=== PATIENT | male | born 2000 | race Caucasian/White ===

== ENCOUNTER 2024-09-24 09:08 | Emergency (ER) | payer MEDICAID, SELFPAY ==
[2024-09-24] VITALS (7 sets, daily range): BP systolic 136–151; BP diastolic 83–105; PULSE 81–96; RESP 18; TEMP 36.8; O2SAT 97–100; BMI 24.4
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
[2024-09-24 10:07] LABS: Basophils Absolute Auto 0.04 K/uL (0.00-0.30); Basophils Percent Auto 0.5 % (0.0-3.0); Eosinophils Absolute Auto 0.29 K/uL (0.00-0.50); Eosinophils Percent Auto 3.7 % (0.0-7.0); Hematocrit 28.4 % (37.0-53.0); Hemoglobin* 9.5 gm/dL (13.5-17.5); Immature Granulocytes Abs Auto 0.01 K/uL (0.00-0.30); Immature Granulocytes Pct Auto 0.1 %; Lymphocytes Percent Auto 12.1 % (20-44); Mean Corpuscular HGB Conc 34 gm/dL (32-36); Mean Corpuscular Hemoglobin 30 pg (26-34); Mean Corpuscular Volume 91 fL (80-100); Monocytes Percent Auto 10.9 % (0.0-11.0); Neutrophils Percent Auto 72.7 % (42.0-72.0); Platelet Count* 195 K/uL (140-440); RDW Coefficient of Variation % 11.8 % (11.5-15.5); Red Blood Count 3.13 m/uL (4.30-5.90); White Blood Count* 7.88 K/uL (4.50-11.00)
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
--- OUTSIDE RECORDS SUMMARY | 2024-09-24 10:08 | XMS_ITS | Referral Summary ---
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 chest earlier today. Thoracic and lumbar spine otherwise negative. Narrative 09/21/2024 1:14 PM CHILD NUTRITION MANAGER EXAM: CT THORACIC SPINE WITHOUT IV CONTRAST, CT LUMBAR SPINE WITHOUT IV CONTRAST COMPARISON: CT thoracic and lumbar spine 03/18/2018. FINDINGS: Thoracic spine: Acute fractures of the left T1-T5 posterior ribs. Small right and trace left pneumothorax and left pulmonary contusions are better demonstrated on CT chest performed earlier today. Chronic appearance of Schmorl's node involving the superior endplate of T3 is more prominent than on 03/18/2018. Chronic Schmorl's nodes involving the inferior endplate of T6 and T7 are unchanged. Thoracic spine otherwise negative. Lumbar spine: Negative and unchanged. Procedure Note Dev Hull M.D. - 09/21/2024 EXAM: CT THORACIC SPINE WITHOUT IV CONTRAST, CT LUMBAR SPINE WITHOUT IVCONTRAST COMPARISON: CT thoracic and lumbar spine 03/18/2018. FINDINGS: Thoracic spine: Acute fractures of the left T1-T5 posteriorribs. Small right and trace left pneumothorax and left pulmonarycontusions are better demonstrated on CT chest performed earlier today. Chronic appearance of Schmorl's node involving the superior endplate of T3is more prominent than on 03/18/2018. Chronic Schmorl's nodes involving theinferior endplate of T6 and T7 are unchanged. Thoracic spine otherwisenegative. Lumbar spine: Negative and unchanged. IMPRESSION: Acute left upper rib fractures, bilateral pneumothoraces left pulmonarycontusion as demonstrated on CT chest earlier today. Thoracic and lumbarspine otherwise negative. Shereen Dubon IMMariela CT PROCEDURES Final Res ult * CT Thoracic Spine without IV Contrast (09/21/2024 1:05 PM CHILD NUTRITION MANAGER) Anatomical Region Laterality Modality Thoracic Spine, Neuroradiolo gy RST LOS, Neuroradiology ARZ LOS, Neuroradiology FLA LOS N/A Computed Tomography, Compute d Tomography Impressions 09/21/2024 1:14 PM CHILD NUTRITION MANAGER Acute left upper rib fractures, bilateral pneumothoraces left pulmonary contusion as demonstrated on CT chest earlier today. Thoracic and lumbar spine otherwise negative. Narrative 09/21/2024 1:14 PM CHILD NUTRITION MANAGER EXAM: CT THORACIC SPINE WITHOUT IV CONTRAST, CT LUMBAR SPINE WITHOUT IV CONTRAST COMPARISON: CT thoracic and lumbar spine 03/18/2018. FINDINGS: Thoracic spine: Acute fractures of the left T1-T5 posterior ribs. Small right and trace left pneumothorax and left pulmonary contusions are better demonstrated on CT chest performed earlier today. Chronic appearance of Schmorl's node involving the superior endplate of T3 is more prominent than on 03/18/2018. Chronic Schmorl's nodes involving the inferior endplate of T6 and T7 are unchanged. Thoracic spine otherwise negative. Lumbar spine: Negative and unchanged. Procedure Note Dev Hull M.D. - 09/21/2024 EXAM: CT THORACIC SPINE WITHOUT IV CONTRAST, CT LUMBAR SPINE WITHOUT IVCONTRAST COMPARISON: CT thoracic and lumbar spine 03/18/2018. FINDINGS: Thoracic spine: Acute fractures of the left T1-T5 posteriorribs. Small right and trace left pneumothorax and left pulmonarycontusions are better demonstrated on CT chest performed earlier today. Chronic appearance of Schmorl's node involving the superior endplate of T3is more prominent than on 03/18/2018. Chronic Schmorl's nodes involving theinferior endplate of T6 and T7 are unchanged. Thoracic spine otherwisenegative. Lumbar spine: Negative and unchanged. IMPRESSION: Acute left upper rib fractures, bilateral pneumothoraces left pulmonarycontusion as demonstrated on CT chest earlier today. Thoracic and lumbarspine otherwise negative. Shereen Dubon IMMariela CT PROCEDURES Final Res ult * CT Neck Angiogram with IV Contrast (09/21/2024 1:05 PM CHILD NUTRITION MANAGER) Anatomical Region Laterality Modality Neck, Neuroradiology RST LOS , Neuroradiology ARZ LOS, Neuroradiology FLA LOS N/A Computed Tomography, Compute d Tomography 09/21/2024 12:5 9 PM CHILD NUTRITION MANAGER Impressions 09/21/2024 1:20 PM CHILD NUTRITION MANAGER 1. Carotid and vertebral arteries in the neck are patent and negative for acute traumatic injury. 2. 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 Narrative 09/21/2024 1:20 PM CHILD NUTRITION MANAGER EXAM: CT NECK ANGIOGRAM WITH IV CONTRAST Including 3D image post-processing with or without AI assistance. COMPARISON: Neck CT 04/15/2023, chest CT 09/21/2024 FINDINGS: Carotid and vertebral arteries in the neck are widely patent without stenosis. No acute traumatic vascular injury. Small 2 to 3 mm saccular outpouching projecting superiorly and medially from the proximal left A2 segment. Subcutaneous soft tissue swelling in the lower face and anterior neck, left slightly greater than right. Asymmetric enhancement of the left parotid and submandibular glands may reflect reactive hyperemia. Partially visualized bilateral pneumothoraces and multiple posterior rib fractures, which were better evaluated on chest CT earlier today. Procedure Note Dev Hull M.D. - 09/21/2024 EXAM: CT NECK ANGIOGRAM WITH IV CONTRAST Including 3D image post-processing with or without AI assistance. COMPARISON: Neck CT 04/15/2023, chest CT 09/21/2024 FINDINGS: Carotid and vertebral arteries in the neck are widely patentwithout stenosis. No acute traumatic vascular injury. Small 2 to 3 mm saccular outpouching projecting superiorly and mediallyfrom the proximal left A2 segment. Subcutaneous soft tissue swelling in the lower face and anterior neck,left slightly greater than right. Asymmetric enhancement of the leftparotid and submandibular glands may reflect reactive hyperemia. Partially visualized bilateral pneumothoraces and multiple posterior ribfractures, which were better evaluated on chest CT earlier today. IMPRESSION: 1. Carotid and vertebral arteries in the neck are patent and negative foracute traumatic injury. 2. 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 us Shereen Pacheco.S. IMG CT PROCEDURES Final Res ult * (ABNORMAL) Lactate, POCT (09/21/2024 12:34 PM CHILD NUTRITION MANAGER) Lactate, POCT 2.62(H) 0.50 - 2.20 mmol/L 09/21/2024 12:46 PM CHILD NUTRITION MANAGER PCLX Blood (Blood, Venous) 09/21/2024 12:34 PM CHILD NUTRITION MANAGER 09/21/2024 12:34 PM CHILD NUTRITION MANAGER us Shereen PaezB.S. LAB POCT ORDERABLES - DEVIC E Final Result [facility] SERVICES [address] [place] [address], [place] PCLX [facility] POC [address] [place] [address] * (ABNORMAL) Venous Blood Gas and Electrolytes CG8+, POCT (09/21/2024 12:33 PM CHILD NUTRITION MANAGER) [facility] Sample Site, POCT Venstick 09/21/2024 12:46 PM CHILD NUTRITION MANAGER PCLX Comment: ----ADDITIONAL INFORMATION---- Performed at the Point of Care pH, Venous, POCT, B 7.33 7.32 - 7.43 09/21/2024 12:46 PM CHILD NUTRITION MANAGER PCSM Comment: ----ADDITIONAL INFORMATION---- Performed at the Point of Care pCO2, Venous, POCT, B 41 41 - 51 mm Hg 09/21/2024 12:46 PM CHILD NUTRITION MANAGER PCSM Comment: ----ADDITIONAL INFORMATION---- Performed at the Point of Care pO2, Venous, POCT, B 63 Not Applicable mm Hg 09/21/2024 12:46 PM CHILD NUTRITION MANAGER PCSM Comment: ----ADDITIONAL INFORMATION---- Performed at the Point of Care Base Excess, Venous, POCT, B -4 Not Applicable mmol/L 09/21/2024 12:46 PM CHILD NUTRITION MANAGER PCSM Comment: ----ADDITIONAL INFORMATION---- Performed at the Point of Care HCO3, Venous, POCT, B 22 Not Applicable mmol/L 09/21/2024 12:46 PM CHILD NUTRITION MANAGER PCSM Comment: ----ADDITIONAL INFORMATION---- Performed at the Point of Care Sodium, POCT, B 139 135 - 145 mmol/L 09/21/2024 12:46 PM CHILD NUTRITION MANAGER PCLX Comment: ----ADDITIONAL INFORMATION---- Performed at the Point of Care Potassium, POCT, B 4.0 3.6 - 5.2 mmol/L 09/21/2024 12:46 PM CHILD NUTRITION MANAGER PCLX Comment: ----ADDITIONAL INFORMATION---- Performed at the Point of Care Calcium, Ionized, POCT, B 5.10 4.65 - 5.30 mg/dL 09/21/2024 12:46 PM CHILD NUTRITION MANAGER PCLX Comment: ----ADDITIONAL INFORMATION---- Performed at the Point of Care Glucose, POCT, B 172(H) 70 - 140 mg/dL 09/21/2024 12:46 PM CHILD NUTRITION MANAGER PCLX Comment: ----ADDITIONAL INFORMATION---- Performed at the Point of Care Hematocrit, POCT, B 46.0 38.3 - 48.6 % 09/21/2024 12:46 PM CHILD NUTRITION MANAGER PCLX Comment: ----ADDITIONAL INFORMATION---- Performed at the Point of Care Blood (Blood, Venous) 09/21/2024 12:33 PM CHILD NUTRITION MANAGER 09/21/2024 12:33 PM CHILD NUTRITION MANAGER us Shereen PaezB.S. LAB POCT ORDERABLES - DEVIC E Final Result Performing Organization Address [facility] Co de Phone Number POC [facility] SERVICES [address] [place] [address], [facility] PCLX [facility] POC [address] [place] [address] PCSM [facility] POC [address] [place] [address] * Ethanol Level, Serum (09/21/2024 12:32 PM CHILD NUTRITION MANAGER) Pathologist [facility] Ethanol, S <10 <10 mg/dL 09/21/2024 1:1 9 PM CHILD NUTRITION MANAGER DTL Blood (Blood, Venous) 09/21/2024 12:32 PM CHILD NUTRITION MANAGER 09/21/2024 12:58 PM CHILD NUTRITION MANAGER us Shereen PaezB.S. LAB BLOOD NON ADD-ON Final Result Performing Organization Address [facility] de Phone Number [facility] [address] [place] [address], [facility] [address] [place] [address] * (ABNORMAL) Thromboelastograph, Kaolin, Blood (09/21/2024 12:32 PM CHILD NUTRITION MANAGER) R, Kaolin, TEG 3.0(L) 4.0 - 9.0 min 09/21/2024 2:05 PM CHILD NUTRITION MANAGER STMA K, Kaolin, TEG 1.4 1.0 - 1.8 min 09/21/2024 2:05 PM CHILD NUTRITION MANAGER STMA Angle, Kaolin, TEG 68.2 64.0 - 78.1 degrees 09/21/2024 2:05 PM CHILD NUTRITION MANAGER STMA MA, Kaolin, TEG 63.8 57.1 - 72.6 mm 09/21/2024 2:05 PM CHILD NUTRITION MANAGER STMA Ly30, Kaolin, TEG 1.4 0.0 - 4.8 % 09/21/2024 2:05 PM CHILD NUTRITION MANAGER STMA Blood (Blood, Venous) 09/21/2024 12:32 PM CHILD NUTRITION MANAGER 09/21/2024 12:32 PM CHILD NUTRITION MANAGER Shereen PaezB.S. LAB BLOOD NON ADD-ON Final Result Performing Organization Address [facility]/State/ZIP Co de Phone Number [facility] [address] [place] [address], [facility] [address] [place] [address] * (ABNORMAL) Prothrombin Time (PT) (09/21/2024 12:32 PM CHILD NUTRITION MANAGER) Prothrombin Time, P 12.9(H) 9.4 - 12.5 sec 09/21/2024 12:48 PM CHILD NUTRITION MANAGER [facility] 1.2 0.9 - 1.1 09/21/2024 12:48 PM CHILD NUTRITION MANAGER [facility] Comment: ----ADDITIONAL INFORMATION---- Standard intensity warfarin therapeutic range: 2.0 to 3.0 High intensity warfarin therapeutic range: 2.5 to 3.5 Blood (Blood, Venous) 09/21/2024 12:32 PM CHILD NUTRITION MANAGER 09/21/2024 12:42 PM CHILD NUTRITION MANAGER us Shereen PaezB.S. LAB BLOOD ADD-ON Final Resu lt [facility] [address] [place] [address], [facility] [address] [place] [address] * Type and Screen (with Reflex Antibody ID) (09/21/2024 12:32 PM CHILD NUTRITION MANAGER) ABORh B Pos Not applicable 09/21/2024 1:19 PM CHILD NUTRITION MANAGER STRM Antibody Screen Negative Negative 09/21/2024 1:32 PM CHILD NUTRITION MANAGER STRM Type & Screen Expiration 09/24/2024 23:59 09/21/2024 1:19 PM CHILD NUTRITION MANAGER STRM Testing Location [place] DEFAULT 09/21/2024 12:49 PM CHILD NUTRITION MANAGER STRM Blood (Blood, Venous) 09/21/2024 12:32 PM CHILD NUTRITION MANAGER 09/21/2024 12:49 PM CHILD NUTRITION MANAGER us Shereen PaezB.S. LAB BLOOD BANK TEST ORDERAB LES Final Result Performing Organization Address [facility]/ZIP Co de Phone Number [facility] [address] [place] [address], [facility] STRM [facility] [address] [place] [address] * Lipase (09/21/2024 12:32 PM CHILD NUTRITION MANAGER) Lipase, S 30 13 - 60 U/L 09/21/2024 1: 19 PM CHILD NUTRITION MANAGER DTL Blood (Blood, Venous) 09/21/2024 12:32 PM CHILD NUTRITION MANAGER 09/21/2024 12:58 PM CHILD NUTRITION MANAGER us Shereen PaezB.S. LAB BLOOD ADD-ON Final Resu lt Performing Organization Address [facility] Co de Phone Number [facility] [address] [place] [address], [facility] DTL [facility] [address] [place] [address] * DX Shoulder Left 2+ Views (09/21/2024 9:25 AM CHILD NUTRITION MANAGER) Anatomical Region Laterality Modality Upper Extremity, Shoulder, M usculoskeletal RST LOS, Musculoskeletal ARZ LOS, Muskuloskeletal FLA LOS Left Digit al Radiography Impressions 09/21/2024 9:35 AM CHILD NUTRITION MANAGER Images are interpreted without comparison. There is a comminuted fracture of the scapular body which extends across the superior margin of the neck of the glenoid. Fractures involving the left first through sixth ribs with segmental third, fourth, fifth rib fractures. Small biapical pneumothoraces. (More completely characterized on preceding CT examination) Glenohumeral and acromioclavicular alignment is within normal limits. Left clavicle is intact. Narrative 09/21/2024 9:35 AM CHILD NUTRITION MANAGER EXAM: DX SHOULDER LEFT 2+ VIEWS Procedure Note Ezra Gan M.D. - 09/21/2024 EXAM: DX SHOULDER LEFT 2+ VIEWS IMPRESSION: Images are interpreted without comparison. There is a comminuted fractureof the scapular body which extends across the superior margin of the neckof the glenoid. Fractures involving the left first through sixth ribs withsegmental third, fourth, fifth rib fractures. Small biapical pneumothoraces. (Morecompletely characterized on preceding CT examination) Glenohumeral andacromioclavicular alignment is within normal limits. Left clavicle isintact. Bertha Ferrera M.D. IMG DIAGNOSTIC IMAGING [place] OCEDURES Final Result * CT Abdomen Pelvis with IV Contrast (09/21/2024 9:20 AM CHILD NUTRITION MANAGER) Anatomical Region Laterality Modality Abdomen, Pelvis, Abdominal R ST LOS, Abdominal ARZ LOS, Abdominal FLA LOS N/A Computed Tomography 09/21/2024 9:13 AM CHILD NUTRITION MANAGER Impressions 09/21/2024 9:40 AM CHILD NUTRITION MANAGER 1. Small right and trace left pneumothoraces. Small left hemothorax. 2. Left first through sixth rib fractures with segmental fractures of the left third, fourth and fifth ribs. Extensive left pulmonary contusion. 3. No acute traumatic injury in the abdomen or pelvis. Result discussed with BERTHA FERRERA on 09/21/2024 9:38 AM. Narrative 09/21/2024 9:40 AM CHILD NUTRITION MANAGER EXAM: CT CHEST WITH IV CONTRAST, CT ABDOMEN PELVIS WITH IV CONTRAST COMPARISON: CT chest abdomen pelvis 03/18/2018 FINDINGS: Small right and trace left pneumothoraces. Extensive groundglass attenuation throughout the left lung compatible with pulmonary contusion. Small left hemothorax. No thoracic lymphadenopathy. Normal heart size without pericardial effusion. Small amount of thymic tissue in anterior mediastinum. Focal fatty deposition along the falciform ligament. Gallbladder, spleen, pancreas and adrenal glands are normal. No hydronephrosis. Portal, splenic and superior mesenteric veins are patent. 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 No lymphadenopathy. No dilated loops of small or large bowel. Trace free fluid in the pelvis. Bone windows demonstrate comminuted left scapular fracture involving the scapular body extending into the anterior aspect of the glenoid and base of the coracoid process. Nondisplaced left posterior first, second, third, fourth, fifth, sixth rib fractures with subsegmental left lateral third, fourth, fifth rib fractures. Procedure Note Saeed Son M.D. - 09/21/2024 EXAM: CT CHEST WITH IV CONTRAST, CT ABDOMEN PELVIS WITH IV CONTRAST COMPARISON: CT chest abdomen pelvis 03/18/2018 FINDINGS: Small right and trace left pneumothoraces. Extensive groundglassattenuation throughout the left lung compatible with pulmonary contusion.Small left hemothorax. No thoracic lymphadenopathy. Normal heart size without pericardialeffusion. Small amount of thymic tissue in anterior mediastinum. Focal fatty deposition along the falciform ligament. Gallbladder, spleen,pancreas and adrenal glands are normal. No hydronephrosis. Portal, splenic and superior mesenteric veins are patent. Stable stenosisof the celiac artery origin with poststenotic dilatation aorta normal incourse and caliber. No lymphadenopathy. No dilated loops of small or large bowel. Trace free fluid in thepelvis. Bone windows demonstrate comminuted left scapular fracture involving thescapular body extending into the anterior aspect of the glenoid and baseof the coracoid process. Nondisplaced left posterior first, second, third,fourth, fifth, sixth rib fractures with subsegmental left lateral third, fourth, fifth ribfractures. IMPRESSION: 1. Small right and trace left pneumothoraces. Small left hemothorax. 2. Left first through sixth rib fractures with segmental fractures of theleft third, fourth and fifth ribs. Extensive left pulmonary contusion. 3. No acute traumatic injury in the abdomen or pelvis. Result discussed with BERTHA FERRERA on 09/21/2024 9:38 AM. us Bertha Ferrera M.D. IMG CT PROCEDURES Final R esult * CT Chest with IV Contrast (09/21/2024 9:19 AM CHILD NUTRITION MANAGER) Anatomical Region Laterality Modality Chest, Thoracic RST LOS, Tho racic ARZ LOS, Thoracic ARZ LOS, Thoracic FLA LOS N/A Computed Tomography 09/21/2024 9:13 AM CHILD NUTRITION MANAGER Impressions 09/21/2024 9:40 AM CHILD NUTRITION MANAGER 1. Small right and trace left pneumothoraces. Small left hemothorax. 2. Left first through sixth rib fractures with segmental fractures of the left third, fourth and fifth ribs. Extensive left pulmonary contusion. 3. No acute traumatic injury in the abdomen or pelvis. Result discussed with BERTHA FERRERA on 09/21/2024 9:38 AM. Narrative 09/21/2024 9:40 AM CHILD NUTRITION MANAGER EXAM: CT CHEST WITH IV CONTRAST, CT ABDOMEN PELVIS WITH IV CONTRAST COMPARISON: CT chest abdomen pelvis 03/18/2018 FINDINGS: Small right and trace left pneumothoraces. Extensive groundglass attenuation throughout the left lung compatible with pulmonary contusion. Small left hemothorax. No thoracic lymphadenopathy. Normal heart size without pericardial effusion. Small amount of thymic tissue in anterior mediastinum. Focal fatty deposition along the falciform ligament. Gallbladder, spleen, pancreas and adrenal glands are normal. No hydronephrosis. Portal, splenic and superior mesenteric veins are patent. 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 No lymphadenopathy. No dilated loops of small or large bowel. Trace free fluid in the pelvis. Bone windows demonstrate comminuted left scapular fracture involving the scapular body extending into the anterior aspect of the glenoid and base of the coracoid process. Nondisplaced left posterior first, second, third, fourth, fifth, sixth rib fractures with subsegmental left lateral third, fourth, fifth rib fractures. Procedure Note Saeed Son M.D. - 09/21/2024 EXAM: CT CHEST WITH IV CONTRAST, CT ABDOMEN PELVIS WITH IV CONTRAST COMPARISON: CT chest abdomen pelvis 03/18/2018 FINDINGS: Small right and trace left pneumothoraces. Extensive groundglassattenuation throughout the left lung compatible with pulmonary contusion.Small left hemothorax. No thoracic lymphadenopathy. Normal heart size without pericardialeffusion. Small amount of thymic tissue in anterior mediastinum. Focal fatty deposition along the falciform ligament. Gallbladder, spleen,pancreas and adrenal glands are normal. No hydronephrosis. Portal, splenic and superior mesenteric veins are patent. Stable stenosisof the celiac artery origin with poststenotic dilatation aorta normal incourse and caliber. No lymphadenopathy. No dilated loops of small or large bowel. Trace free fluid in thepelvis. Bone windows demonstrate comminuted left scapular fracture involving thescapular body extending into the anterior aspect of the glenoid and baseof the coracoid process. Nondisplaced left posterior first, second, third,fourth, fifth, sixth rib fractures with subsegmental left lateral third, fourth, fifth ribfractures. IMPRESSION: 1. Small right and trace left pneumothoraces. Small left hemothorax. 2. Left first through sixth rib fractures with segmental fractures of theleft third, fourth and fifth ribs. Extensive left pulmonary contusion. 3. No acute traumatic injury in the abdomen or pelvis. Result discussed with BERTHA FERRERA on 09/21/2024 9:38 AM. us Bertha Ferrera M.D. IMG CT PROCEDURES Final R esult * CT Head without IV Contrast (09/21/2024 9:18 AM CHILD NUTRITION MANAGER) Anatomical Region Laterality Modality Head, Neuroradiology RST [facility] , Neuroradiology [facility], Neuroradiology [facility] N/A Computed Tomography 09/21/2024 9:19 AM CHILD NUTRITION MANAGER Impressions 09/21/2024 9:26 AM CHILD NUTRITION MANAGER 1. No acute intracranial pathology. 2. Facial fractures appear chronic. Narrative 09/21/2024 9:26 AM CHILD NUTRITION MANAGER EXAM: CT HEAD WITHOUT IV CONTRAST COMPARISON: 03/18/2018 CT FINDINGS: No midline shift. Ventricles are unremarkable. The lambert-white differentiation is maintained. No acute intracranial hemorrhage. Mastoids are unremarkable. Paranasal sinus mucosal thickening. The partially visualized upper cervical spine findings are reported separately. Fractures of the left lamina papyracea and nasal bones appear chronic. No acute calvarial fracture. Procedure Note Cristino Walsh M.D. - 09/21/2024 EXAM: CT HEAD WITHOUT IV CONTRAST COMPARISON: 03/18/2018 CT FINDINGS: No midline shift. Ventricles are unremarkable. The lambert-whitedifferentiation is maintained. No acute intracranial hemorrhage. Mastoidsare unremarkable. Paranasal sinus mucosal thickening. The partiallyvisualized upper cervical spine findings are reported separately. Fractures of the left lamina papyracea and nasalbones appear chronic. No acute calvarial fracture. IMPRESSION: 1. No acute intracranial pathology. 2. Facial fractures appear chronic. us Bertha Ferrera M.D. IMG CT PROCEDURES Final R esult * CT Cervical Spine without IV Contrast (09/21/2024 9:17 AM CHILD NUTRITION MANAGER) Anatomical Region Laterality Modality Cervical Spine, Neuroradiolo gy RST LOS, Neuroradiology ARZ LOS, Neuroradiology FLA LOS N/A Computed Tomography 09/21/2024 9:16 AM CHILD NUTRITION MANAGER Impressions 09/21/2024 9:23 AM CHILD NUTRITION MANAGER Negative for acute fracture of cervical spine. Narrative 09/21/2024 9:23 AM CHILD NUTRITION MANAGER EXAM: CT CERVICAL SPINE WITHOUT IV CONTRAST COMPARISON: None FINDINGS: Cervical vertebra are negative for acute fracture or subluxation. There is posttraumatic gas tracking along the left paraspinal muscle fascia (series 2 image 180). Subcutaneous edema. Please see chest CT report regarding details of additional findings, such as left rib fractures and bilateral pneumothoraces. Procedure Note Ezra Sun M.D. - 09/21/2024 EXAM: CT CERVICAL SPINE WITHOUT IV CONTRAST COMPARISON: None FINDINGS: Cervical vertebra are negative for acute fracture orsubluxation. There is posttraumatic gas tracking along the left paraspinalmuscle fascia (series 2 image 180). Subcutaneous edema. Please see chestCT report regarding details of additional findings, such as left rib fractures and bilateral pneumothoraces. IMPRESSION: Negative for acute fracture of cervical spine. us Bertha Ferrera M.D. IMG CT PROCEDURES Final R esult * DX Ankle Left 3+ Views (09/21/2024 9:07 AM CHILD NUTRITION MANAGER) Anatomical Region Laterality Modality Lower Extremity, Ankle, Musc uloskeletal RST LOS, Musculoskeletal ARZ LOS, Muskuloskeletal FLA LOS Left Digit al Radiography Impressions 09/21/2024 9:10 AM CHILD NUTRITION MANAGER Negative left ankle radiographs. Narrative 09/21/2024 9:10 AM CHILD NUTRITION MANAGER EXAM: DX ANKLE LEFT 3+ VIEWS Procedure Note Florentin Figueroa M.D. - 09/21/2024 EXAM: DX ANKLE LEFT 3+ VIEWS IMPRESSION: Negative left ankle radiographs. Bertha Ferrera M.D. IMG DIAGNOSTIC IMAGING [place] OCEDURES Final Result from Last 3 Months Advance Directives For more information, please contact: [phone] * Full Code (Latest Code Status on File) Date Activated Date Inactivated Comments 09/22/2024 2:11 PM 09/22/2024 5:22 PM Question Answer Comments Full Code: Not Discussed Due to: Patient not available * Full Code Date Activated Date Inactivated Comments 03/18/2018 9:39 PM 03/20/2018 4:05 PM Question Answer Comments Full Code: Not Discussed Due to: Patient not available Care Teams Site Safety Coordinator Relationship Specialty Start Date End Date Tiana Ma M.D. [address] [place] [phone] PCP - General Family Medicine 09/22/24
--- OUTSIDE RECORDS SUMMARY | 2024-09-24 10:08 | XMS_ITS ---
Author Organization [facility] Address [address] [place] [address] Care Team Providers Care Rivet Spinner Name Role Phone Unavailable Unavailable Unavailable Surgery Details Not on file Complications Check Surgery Details section. Procedure Estimated Blood Loss Check Surgery Details section. Procedure Findings Check Surgery Details section. Procedure Specimens Taken Check Surgery Details section.
--- OUTSIDE RECORDS SUMMARY | 2024-09-24 10:08 | XMS_ITS | Encounter Summary ---
Author Organization [facility] Address [address] [place] [address] Care Team Providers Care Hedge Trimmer Name Role Phone Tiana Ma M.D. Primary Care Provider Reason for Visit * Reason Onset Date Comments Rx Prior Authorization 09/22/2024 oxyCODONE IR tablet 5 mg (Roxicodone) Encounter Details Date Type Department Care Team (Latest Contact Info) Description 09/22/2024 Clinical Communication Division of Trauma Critical Care and General Surgery in [place], [place] [address] [place] [phone] Theresa Pandya P.A.-C. [address] [place] [address] Rx Prior Authorization (oxyCODONE IR tablet 5 mg (Roxicodone)/) Social History Tobacco Use Types Packs/Day Years Used Date Smoking Tobacco: Some Days Cigarettes Smokeless Tobacco: Never Comments:socially Alcohol Use Standard Drinks/Week Comments No 0 (1 standard drink = 0.6 oz pur e alcohol) [facility] Utilities Answer Date Recorded In the past 12 months has e electric, gas, oil, or water company threatened to shut off services in your [...] Date Recorded Dental: Regular Dentist Unknown 04/15/20 23 Housing Stability Answer Date Recorded What is your living situation today? I have a [facility] place to live 09/21/2024 Sex and Gender Information Value Date Recorded Sex Assigned at Not on file Legal Sex Male 7:15 PM GRILL PREP COOK Gender Identity Not on file Sexual Orientation Not on file documented as of this encounter Miscellaneous Notes * Telephone Encounter - Edin Corbin - 09/22/2024 2:56 PM CST Pharmacy would like a edit to the patient's oxyCODONE IR tablet 5 mg (Roxicodone). They think the dose is high for an acute fill. They would like to have the restriction of only taking a max of six aday added to the Rx. A new Rx can be sent in or called and dictated at [phone]. Thank you L PREP COOK documented in this encounter Plan of Treatment Upcoming Encounters Date Type Department Care Team (Late st Contact Info) Description 10/06/2024 10:30 AM GRILL PREP COOK Office Visit Department of Family Medicine, [facility], in [place], [place] [address] [place] [address] Rhett Montes De Oca M.D. [address] [place] [phone] 10/07/2024 7:15 AM GRILL PREP COOK Appointment Department of Radiology, [facility] in [address] [phone] Theresa Pandya P.A.-C. [address] [place] [phone] 10/07/2024 8:00 AM GRILL PREP COOK Office Visit Division of Trauma Critical Care and General Surgery in [address] [phone] Theresa Pandya P.A.-C. [address] [place] [phone] 10/13/2024 10:00 AM GRILL PREP COOK Appointment Department of Radiology, [facility] in [address] [phone] Ce Braxton P.A.-C., M.S. [address] [place] [phone] Discharge Disposition: Home or Self Care 10/13/2024 11:00 AM GRILL PREP COOK Office Visit Department of Orthopedic Surgery in [address] [phone] Ce Braxton P.A.-C., M.S. [address] [place] [phone] documented as of this encounter Visit Diagnoses Not on filedocumented in this encounter Care Teams Hedge Trimmer Relationship Specialty Start Date End Date Tiana Ma M.D. [address] [place] [phone] PCP - General Family Medicine 09/22/24 documented as of this encounter
--- OUTSIDE RECORDS SUMMARY | 2024-09-24 10:08 | XMS_ITS | Clinical Summary ---
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 [facility] POC [address] [place] [address] * Ethanol Level, Serum (09/21/2024 12:32 PM SET UP OPERATOR TOOL) Ethanol, S <10 <10 mg/dL 09/21/2024 1:1 9 PM SET UP OPERATOR TOOL DTL Blood (Blood, Venous) 09/21/2024 12:32 PM SET UP OPERATOR TOOL 09/21/2024 12:58 PM SET UP OPERATOR TOOL Shreeen PaezB.S. LAB BLOOD NON ADD-ON Final Result Performing Organization Address [facility] Co de Phone Number [facility] [address] [place], [place] [phone] [place] [address] DTL [facility] [address] [place] [address] * (ABNORMAL) Thromboelastograph, Kaolin, Blood (09/21/2024 12:32 PM SET UP OPERATOR TOOL) R, Kaolin, TEG 3.0(L) 4.0 - 9.0 min 09/21/2024 2:05 PM SET UP OPERATOR TOOL STMA K, Kaolin, TEG 1.4 1.0 - 1.8 min 09/21/2024 2:05 PM SET UP OPERATOR TOOL STMA Angle, Kaolin, TEG 68.2 64.0 - 78.1 degrees 09/21/2024 2:05 PM SET UP OPERATOR TOOL STMA MA, Kaolin, TEG 63.8 57.1 - 72.6 mm 09/21/2024 2:05 PM SET UP OPERATOR TOOL STMA Ly30, Kaolin, TEG 1.4 0.0 - 4.8 % 09/21/2024 2:05 PM SET UP OPERATOR TOOL STMA Blood (Blood, Venous) 09/21/2024 12:32 PM SET UP OPERATOR TOOL 09/21/2024 12:32 PM SET UP OPERATOR TOOL Shereen PaezB.S. LAB BLOOD NON ADD-ON Final Result Performing Organization Address [facility]/ZIP Co de Phone Number [facility] [address] [place] [address], [facility] STMA [facility] [address] [place] [address] * (ABNORMAL) Prothrombin Time (PT) (09/21/2024 12:32 PM SET UP OPERATOR TOOL) Prothrombin Time, P 12.9(H) 9.4 - 12.5 sec 09/21/2024 12:48 PM SET UP OPERATOR TOOL [facility]2 0.9 - 1.1 09/21/2024 12:48 PM SET UP OPERATOR TOOL STMA Comment: ----ADDITIONAL INFORMATION---- Standard intensity warfarin therapeutic range: 2.0 to 3.0 High intensity warfarin therapeutic range: 2.5 to 3.5 Blood (Blood, Venous) 09/21/2024 12:32 PM SET UP OPERATOR TOOL 09/21/2024 12:42 PM SET UP OPERATOR TOOL Shereen PaezB.S. LAB BLOOD ADD-ON Final Resu lt [facility] [address] [place] [address], [facility] STMA [facility] [address] [place] [address] * Type and Screen (with Reflex Antibody ID) (09/21/2024 12:32 PM SET UP OPERATOR TOOL) Pathologist [facility] ABORh B Pos Not applicable 09/21/2024 1:19 PM SET UP OPERATOR TOOL STRM Antibody Screen Negative Negative 09/21/2024 1:32 PM SET UP OPERATOR TOOL STRM Type & Screen Expiration 09/24/2024 23:59 09/21/2024 1:19 PM SET UP OPERATOR TOOL STRM Testing Location [place] DEFAULT 09/21/2024 12:49 PM SET UP OPERATOR TOOL STRM Blood (Blood, Venous) 09/21/2024 12:32 PM SET UP OPERATOR TOOL 09/21/2024 12:49 PM SET UP OPERATOR TOOL Shereen PaezB.S. LAB BLOOD BANK TEST ORDERAB LES Final Result Performing Organization Address City/[facility]/ZIP Co de Phone Number [facility] [address] [place] [address], [facility] STRM [facility] [address] [place] [address] * Lipase (09/21/2024 12:32 PM SET UP OPERATOR TOOL) Lipase, S 30 13 - 60 U/L 09/21/2024 1: 19 PM SET UP OPERATOR TOOL DTL Blood (Blood, Venous) 09/21/2024 12:32 PM SET UP OPERATOR TOOL 09/21/2024 12:58 PM SET UP OPERATOR TOOL Shereen Dubon LAB BLOOD ADD-ON Final Resu lt [facility] [address] [place] [address], [place] [facility] [address] [place] [address] * DX Shoulder Left 2+ Views (09/21/2024 9:25 AM SET UP OPERATOR TOOL) Anatomical Region Laterality Modality Upper Extremity, Shoulder, M usculoskeletal RST LOS, Musculoskeletal ARZ LOS, Muskuloskeletal FLA LOS Left Digit al Radiography Impressions 09/21/2024 9:35 AM SET UP OPERATOR TOOL Images are interpreted without comparison. There is [...] clavicle is intact. Narrative 09/21/2024 9:35 AM SET UP OPERATOR TOOL EXAM: DX SHOULDER LEFT 2+ VIEWS Procedure [...] isintact. Bertha Ferrera M.D. IMG DIAGNOSTIC IMAGING [place] OCEDURES Final Result * CT Abdomen Pelvis with IV Contrast (09/21/2024 9:20 AM SET UP OPERATOR TOOL) Anatomical Region Laterality Modality Abdomen, Pelvis, Abdominal R ST LOS, Abdominal ARZ LOS, Abdominal FLA LOS N/A Computed Tomography 09/21/2024 9:13 AM SET UP OPERATOR TOOL Impressions 09/21/2024 9:40 AM SET UP OPERATOR TOOL 1. Small right and trace left pneumothoraces. Small left hemothorax. 2. Left first through sixth rib fractures with segmental fractures of the left third, fourth and fifth ribs. Extensive left pulmonary contusion. 3. No acute traumatic injury in the abdomen or pelvis. Result discussed with BERTHA FERRERA on 09/21/2024 9:38 AM. Narrative 09/21/2024 9:40 AM SET UP OPERATOR TOOL EXAM: CT CHEST WITH IV CONTRAST, CT [...] with BERTHA FERRERA on 09/21/2024 9:38 AM. Bertha Ferrera M.D. IMG CT PROCEDURES Final R esult * CT Chest with IV Contrast (09/21/2024 9:19 AM SET UP OPERATOR TOOL) Anatomical Region Laterality Modality Chest, Thoracic RST LOS, Tho racic ARZ LOS, Thoracic ARZ LOS, Thoracic FLA LOS N/A Computed Tomography 09/21/2024 9:13 AM SET UP OPERATOR TOOL Impressions 09/21/2024 9:40 AM SET UP OPERATOR TOOL 1. Small right and trace left pneumothoraces. Small left hemothorax. 2. Left first through sixth rib fractures with segmental fractures of the left third, fourth and fifth ribs. Extensive left pulmonary contusion. 3. No acute traumatic injury in the abdomen or pelvis. Result discussed with BERTHA FERRERA on 09/21/2024 9:38 AM. Narrative 09/21/2024 9:40 AM SET UP OPERATOR TOOL EXAM: CT CHEST WITH IV CONTRAST, CT [...] with BERTHA FERRERA on 09/21/2024 9:38 AM. Bertha Ferrera M.D. IMG CT PROCEDURES Final R esult * CT Head without IV Contrast (09/21/2024 9:18 AM SET UP OPERATOR TOOL) Anatomical Region Laterality Modality Head, Neuroradiology RST LOS , Neuroradiology AR LOS, Neuroradiology [facility] LOS N/A Computed Tomography 09/21/2024 9:19 AM SET UP OPERATOR TOOL Impressions 09/21/2024 9:26 AM SET UP OPERATOR TOOL 1. No acute intracranial pathology. 2. Facial fractures appear chronic. Narrative 09/21/2024 9:26 AM SET UP OPERATOR TOOL EXAM: CT HEAD WITHOUT IV CONTRAST COMPARISON: [...] intracranial pathology. 2. Facial fractures appear chronic. Bertha Ferrera M.D. IM CT PROCEDURES Final R esult * CT Cervical Spine without IV Contrast (09/21/2024 9:17 AM SET UP OPERATOR TOOL) Anatomical Region Laterality Modality Cervical Spine, Neuroradiolo gy RST LOS, Neuroradiology ARZ LOS, Neuroradiology FLA LOS N/A Computed Tomography 09/21/2024 9:16 AM SET UP OPERATOR TOOL Impressions 09/21/2024 9:23 AM SET UP OPERATOR TOOL Negative for acute fracture of cervical spine. Narrative 09/21/2024 9:23 AM SET UP OPERATOR TOOL EXAM: CT CERVICAL SPINE WITHOUT IV CONTRAST [...] of cervical spine. us Bertha Ferrera M.D. [facility] CT PROCEDURES Final R esult * DX Ankle Left 3+ Views (09/21/2024 9:07 AM SET UP OPERATOR TOOL) Anatomical Region Laterality Modality Lower Extremity, Ankle, Musc uloskeletal RST LOS, Musculoskeletal ARZ LOS, Muskuloskeletal FLA LOS Left Digit al Radiography Impressions 09/21/2024 9:10 AM SET UP OPERATOR TOOL Negative left ankle radiographs. Narrative 09/21/2024 9:10 AM SET UP OPERATOR TOOL EXAM: DX ANKLE LEFT 3+ VIEWS Procedure Note Florentin Figueroa M.D. - 09/21/2024 EXAM: DX ANKLE LEFT 3+ VIEWS IMPRESSION: Negative left ankle radiographs. us Bertha Ferrera M.D. [facility] [place] DIAGNOSTIC IMAGING MT OCEDURES Final Result from Last 3 Months Advance Directives For more information, please contact: [phone] * Full Code (Latest Code Status on File) Date Activated Date Inactivated Comments 09/22/2024 2:11 PM 09/22/2024 5:22 PM Question Answer Comments Full Code: Not Discussed Due to: Patient not available * Full Code Date Activated Date Inactivated Comments 03/18/2018 9:39 PM 03/20/2018 4:05 PM Question Answer Comments Full Code: Not Discussed Due to: Patient not available Care Teams Powder Operator Relationship Specialty Start Date End Date Tiana Ma M.D. [address] [place] [phone] PCP - General Family Medicine 09/22/24
--- OUTSIDE RECORDS SUMMARY | 2024-09-24 10:08 | XMS_ITS | Encounter Summary ---
Author Organization [facility] Address [address] [place] [address] Care Team Providers Care Landfill Gas Technician Name Role Phone Tiana Ma M.D. Primary Care Provider [phone] Reason for Referral * Outpatient (Routine) - Authorized Specialty Diagnoses / Procedures Referred By Contac t Referred To Contact Trauma Critical Care and General Surgery Diagnoses . Theresa Pandya P.A.-C. [address] [place] [address] Phone: tel: fax: [facility] Referral ID Status Reason Start Date Expiration Date V isits Requested Visits Authorized [id number] Authorized 09/22/2024 03/24/2026 1 1 SALES TEAM LEADER * Outpatient (Routine) - Authorized Specialty Diagnoses / Procedures Referred By Contac t Referred To Contact Diagnoses Fracture Rib Multiple Closed Initial Left Pneumothorax Trauma Initial Contusion Lung Initial Left Procedures DX Chest AP or PA and Lateral 2 Views Theresa Pandya P.A.-C. [address] [place] [address] Phone: tel: fax: [facility] Referral ID Status Reason Start Date Expiration Date V isits Requested Visits Authorized [id number] Authorized 09/22/2024 09/22/2025 1 1 SALES TEAM LEADER Reason for Visit * Reason Onset Date Comments Post Hospital Follow-up 09/22/2024 Rib fx f /u Encounter Details Date Type Department Care Team (Latest Contact Info) Description 09/22/2024 Clinical Communication Division of Trauma Critical Care and General Surgery in [place], [place] [address] [place] [phone] Theresa Padnya P.A.-C. [address] [place] [phone] Post Hospital Follow-up (Rib fx f/u) Social History Tobacco Use Types Packs/Day Years Used Date Smoking Tobacco: Some Days Cigarettes Smokeless Tobacco: Never Comments:socially Alcohol Use Standard Drinks/Week Comments No 0 (1 standard drink = 0.6 oz pur e alcohol) [facility] Utilities Answer Date Recorded In the past 12 months has [employer], gas, oil, or water [employer] threatened to shut off services in your [...] money to buy more. Never true 09/21/20 Within the past 12 months, t he [...] your living situation today? I have a [facility] place to live 09/21/2024 Sex and Gender Information Value Date Recorded Sex Assigned at Not on file Legal Sex Male 7:15 PM TELESALES TEAM LEADER Gender Identity Not on file Sexual Orientation Not on file documented as of this encounter Plan of Treatment Upcoming Encounters Date Type Department Care Team (Late st Contact Info) Description 10/06/2024 10:30 AM TELESALES TEAM LEADER Office Visit Department of Family Medicine, [facility], in [place], [place] [address] [phone] Rhett Montes De Oca M.D. [address] [phone] 10/07/2024 7:15 AM TELESALES TEAM LEADER Appointment Department of Radiology, [facility] in [address] [phone] Theresa Pandya, P.A.-CNeri [address] [place] [phone] 10/07/2024 8:00 AM TELESALES TEAM LEADER Office Visit Division of Trauma Critical Care and General Surgery in [address] [phone] Theresa Pandya, P.A.-CNeri [address] [place] [phone] 10/13/2024 10:00 AM TELESALES TEAM LEADER Appointment Department of Radiology, [facility], in [place], [place] [address] [place] [phone] Ce Braxton P.A.-C., M.S. [address] [place] [phone] Discharge Disposition: Home or Self Care 10/13/2024 11:00 AM TELESALES TEAM LEADER Office Visit Department of Orthopedic Surgery in [place], [place] [address] [place] [phone] Ce Braxton P.A.-C., M.S. [address] [place] [phone] Scheduled Orders Name Type Priority Associated Diagnoses Orde r Schedule DX Chest AP or PA and Lateral 2 Views Imaging RAD - Routine (most inpatients and all outpatients) Fracture Rib Multiple Closed Initial Left Pneumothorax Trauma Initial Contusion Lung Initial Left Expected: 10/06/2024 (Approximate), Expires: 12/23/2025 Scheduled Referrals Name Type Priority Associated Diagnoses Orde r Schedule Trauma Critical Care and General Surgery office visit (clinic) Outpatient Referral Routine Expected: 10/06/2024 (Approximate), Expires: 12/23/2025 documented as of this encounter Visit Diagnoses Diagnosis Fracture Rib Multiple Closed Initial Left- Primary Pneumothorax Trauma Initial Contusion Lung Initial Left documented in this encounter Care Teams Landfill Gas Technician Relationship Specialty Start Date End Date Tiana Ma M.D. [address] [place] [phone] PCP - General Family Medicine 09/22/24 documented as of this encounter
--- OUTSIDE RECORDS SUMMARY | 2024-09-24 10:08 | XMS_ITS | Encounter Summary ---
Author Organization [facility] Address [address] [place] [address] Care Team Providers Care Leasing Professional Name Role Phone Tiana Ma M.D. Primary Care Provider Encounter Details Date Type Department Care Team (Late st Contact Info) Description 09/22/2024 Orders Only Division of Trauma Critical Care and General Surgery in [place], [place] [address] [place] [phone] Florentin Anderson, PNeriA.-C. [address] [place] [phone] Social History Tobacco Use Types Packs/Day Years Used Date Smoking Tobacco: Some Days Cigarettes Smokeless Tobacco: Never Comments:socially Alcohol Use Standard Drinks/Week Comments No 0 (1 standard drink = 0.6 oz pur e alcohol) [facility] Utilities Answer Date Recorded In [...] your living situation today? I have a [facility] place to live 09/21/2024 Sex and Gender Information Value Date Recorded Sex Assigned at Not on file Legal Sex Male 7:15 PM AVIONICS SYSTEMS REPAIRER Gender Identity Not on file Sexual Orientation Not on file documented as of this encounter Plan of Treatment Upcoming Encounters Date Type Department Care Team (Late st Contact Info) Description 10/06/2024 10:30 AM AVIONICS SYSTEMS REPAIRER Office Visit Department of Family Medicine, [facility], in [place], [place] [address] [place] [phone] Rhett Montes De Oca M.D. [address] [place] [phone] 10/07/2024 7:15 AM AVIONICS SYSTEMS REPAIRER Appointment Department of Radiology, [facility], in [place], [place] [address] [place] [address] Theresa Pandya P.A.-C. [address] [place] [phone] 10/07/2024 8:00 AM AVIONICS SYSTEMS REPAIRER Office Visit Division of Trauma Critical Care and General Surgery in [address] [phone] Theresa Pandya P.A.-C. [address] [place] [phone] 10/13/2024 10:00 AM AVIONICS SYSTEMS REPAIRER Appointment Department of Radiology, [facility] in [address] [phone] Ce Braxton P.A.-C., M.S. [address] [place] [phone] Discharge Disposition: Home or Self Care 10/13/2024 11:00 AM AVIONICS SYSTEMS REPAIRER Office Visit Department of Orthopedic Surgery in [address] [phone] Ce Braxton P.A.-C., M.S. [address] [place] [phone] documented as of this encounter Visit Diagnoses Not on filedocumented in this encounter Care Teams Leasing Professional Relationship Specialty Start Date End Date Tiana Ma M.D. [address] [place] [phone] PCP - General Family Medicine 09/22/24 documented as of this encounter
--- OUTSIDE RECORDS SUMMARY | 2024-09-24 10:09 | XMS_ITS | Encounter Summary ---
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 1,000 mg Given 09/21/2024 10:55 PM [facility] 1,000 mg bisacodyL suppository 10 mg (Dulcolax) 10 mg, rectal, Daily PRN, constipation, Starting on Thu09/21/24 at 1701, Ordered sequence of administration: polyethylene glycol, then bisacodyl until BM achieved. enoxaparin injection 30 mg (Lovenox) 30 mg, subcutaneous, 2 times daily, First dose on Yumi 09/22/24 at 0900 Given 09/22/2024 8:06 AM [facility] 30 mg Right Outer Thigh fentaNYL injection 25 mcg (Sublimaze) 25 mcg, intravenous, Every 1 hour PRN, moderate pain or score 4-6 of 10, severe pain or score 7-10 of 10, Starting on Thu09/21/24 at 1225 Given 09/21/2024 2:04 PM [facility] 25 mcg HYDROmorphone (PF) injection 0.2 mg (Dilaudid) 0.2 mg, intravenous, Every 2 hour PRN, severe pain or score 7-10 of 10, breakthrough pain, Starting on Thu09/21/24 at 1701, For breakthrough pain unrelieved 30 minutes after PRN oral pain medication is used; or if unable to take oral pain medication. iohexoL 350 mg iodine/mL solution 1-200 mL (Omnipaque) 1-200 mL, intravenous, Once in imaging, contrast, Starting on Thu09/21/24 at 1241, For 1 dose, Imaging Protocol Orders, Dose per Radiant Medication Guidelines Given 09/21/2024 12:52 PM [facility] 100 mL ketorolac injection 15 mg (ToradoL) 15 mg, intravenous, Every 8 hours, First dose (after last modification) on Thu09/21/24 at 1500, For 4 days, Adult IV push rate: Over 15 seconds. Peds IV push rate: Over 1 minute. Doses > 15 mg IV/IM are discouraged due to lack of additional analgesic benefit. Given 09/22/2024 6:20 AM [facility] 15 mg Given 09/21/2024 10:55 PM [facility] 15 mg Given 09/21/2024 3:12 PM [facility] 15 mg lidocaine 5 % 1 patch (Lidoderm) 1 patch, transdermal, Administer over 12 Hours, Every 24 hours, First dose on Thu09/21/24 at 1800, (12 hours on-12 hours off) To intact skin Medication Applied 09/21/2024 6:16 PM [facility] 1 patch Upper Back LORazepam tablet 1 mg (Ativan) 1 mg, oral, Bedtime PRN, anxiety, Starting on Thu09/21/24 at 2210 Given 09/21/2024 10:55 PM [facility] 1 mg naloxone injection 0.2 mg (Narcan) 0.2 mg, intravenous, As needed, respiratory depression, Starting on Thu09/21/24 at 1701, For RASS Score -4 or less, respiratory rate of less than 8 breaths/min. Notify provider/service and rapid response team (if available at institution). ondansetron (PF) injection 4 mg (Zofran) 4 mg, intravenous, Every 6 hours PRN, nausea, vomiting, Starting on Thu09/21/24 at 1701, Reassess for nausea or vomiting after at least 10 minutes. If nausea or vomiting persists administer next ordered antiemetic medications (order for antiemetic medication administration ondansetron then prochlorperazine). ondansetron ODT disintegrating tablet 4 mg (Zofran-ODT) 4 mg, oral, Every 6 hours PRN, nausea, vomiting, Starting on Thu09/21/24 at 1701, Use ondansetron before droperidol. When splitting ODT at bedside, handle with gloves and a pill splitter to prevent moisture contact. oxyCODONE IR tablet 10 mg (Roxicodone) 10 mg, oral, Every 4 hours PRN, severe pain or score 7-10 of 10, for breakthrough pain, Starting on Thu09/21/24 at 1701, Pain unrelieved by other oral analgesics. Given 09/22/2024 12:14 PM [facility] 10 mg Given 09/21/2024 10:55 PM [facility] 10 mg Given 09/21/2024 6:05 PM [facility] 10 mg oxyCODONE IR tablet 5 mg (Roxicodone) 5 mg, oral, Every 4 hours PRN, moderate pain or score 4-6 of 10, for breakthrough pain, Starting on Thu09/21/24 at 1701, Pain unrelieved by other oral analgesics. Given 09/22/2024 8:07 AM [facility] 5 mg polyethylene glycol powder packet 1 packet (Miralax) 1 packet, oral, Daily PRN, constipation, Starting on Thu09/21/24 at 1701, Dissolve in 240 mLs (8 ounces) of water prior to giving. Avoid mixing with starch-based thickened liquids. prochlorperazine injection 5 mg (Compazine) 5 mg, intravenous, Every 6 hours PRN, nausea, vomiting, Starting on Thu09/21/24 at 1701, RASS must be -2 or higher to administer. Reassess for nausea/vomiting after at least 10 minutes. If nausea or vomiting persists administer next ordered antiemetic medications (order for antiemetic medication administration ondansetron then prochlorperazine) sennosides-docusate sodium 8.6-50 mg per tablet 1 tablet (Senokot-S) 1 tablet, oral, 2 times daily, First dose on Thu09/21/24 at 2100, Do not give if patient has diarrhea sodium chloride (PF) 0.9 % injection 1-100 mL 1-100 mL, intravenous, Once, On Thu09/21/24 at 1242, For 1 dose, Imaging Protocol Orders, Dose per Radiant Medication Guidelines Given 09/21/2024 12:52 PM [facility] 35 m L sodium chloride 0.9 % injection 10 mL 10 mL, intravenous, As needed, line care, Starting on Thu09/21/24 at 1218, Peripheral Intravenous Catheter and Rapid Infusion Catheter, prior to blood sampling, post blood transfusion or post blood sampling sodium chloride 0.9 % injection 3 mL 3 mL, intravenous, As needed, line care, Starting on Thu09/21/24 at 1218, Prior to and following infusion and between multiple consecutive infusions: sodium chloride 0.9 % injection sodium chloride 0.9 % injection 3 mL 3 mL, intravenous, Every 12 hours scheduled, First dose on Thu09/21/24 at 2100, Peripheral Intravenous Catheter and Rapid Infusion Catheter, when no infusion to maintain patency Given 09/21/2024 8:16 PM [facility] 3 mL documented in this encounter Active and Recently Administered Medications Times are shown in [facility]. Scheduled Medication Order 09/20/2024 09/21/2024 09/22/2024 acetaminophen tablet 1,000 mg (TylenoL) 1,000 mg, oral, Every 6 hours, First dose on Thu09/21/24 at 1800 1805 (Given - Provider: Samantha Serna R.N.)2255 (Given - Provider: Lisa Aparicio R.N.) 0620 (Given - Provider: Lisa Aparicio R.N.)1126 (Given - Provider: Araceli Kirkpatrick R.N.) enoxaparin injection 30 mg (Lovenox) 30 mg, subcutaneous, 2 times daily, First dose on Yumi 09/22/24 at 0900 0806 (Given - Provid er: Araceli Kirkpatrick R.N.) ketorolac injection 15 mg (ToradoL) 15 mg, intravenous, Every 8 hours, First dose (after last modification) on Thu09/21/24 at 1500, For 4 days, Adult IV push rate: Over 15 seconds. Peds IV push rate: Over 1 minute. Doses > 15 mg IV/IM are discouraged due to lack of additional analgesic benefit. 1512 (Given - Provider: Malcolm Vasquez R.N.)2255 (Given - Provider: Lisa Aparicio R.N.) 0620 (Given - Provider: Lisa Aparicio R.N.)1500 (Due) ketorolac injection 15 mg (ToradoL) 15 mg, intravenous, Once, On Thu09/21/24 at 1402, For 1 dose, Adult IV push rate: Over 15 seconds. Peds IV push rate: Over 1 minute. Doses > 15 mg IV/IM are discouraged due to lack of additional analgesic benefit. 1417 (Not Given - Provider: Gaby Strauss R.N. - Reason: Patient/family refused) lidocaine 5 % 1 patch (Lidoderm) 1 patch, transdermal, Administer over 12 Hours, Every 24 hours, First dose on Thu09/21/24 at 1800, (12 hours on-12 hours off) To intact skin 181 (Medication Applied - Provider: Samantha Serna R.N.) 0625 (Medication Removed - Provider: Lisa Aparicio R.N.) sennosides-docusate sodium 8.6-50 mg per tablet 1 tablet (Senokot-S) 1 tablet, oral, 2 times daily, First dose on Thu09/21/24 at 2100, Do not give if patient has diarrhea 2015 (Not Given - Provider: Lisa Aparicio, R.N. - Reason: Patient/family refused) 0807 (Not Given - Provider: Araceli Kirkpatrick RJarad - Reason: Patient/family refused) sodium chloride (PF) 0.9 % injection 1-100 mL (COMPLETED) 1-100 mL, intravenous, Once, On Thu09/21/24 at 1242, For 1 dose, Imaging Protocol Orders, Dose per Radiant Medication Guidelines 1252 (Given - Provider: Elias Thorne RNeriNNeri) sodium chloride 0.9 % injection 3 mL 3 mL, intravenous, Every 12 hours scheduled, First dose on Thu09/21/24 at 2100, Peripheral Intravenous Catheter and Rapid Infusion Catheter, when no infusion to maintain patency 2015 (Given - Provider: Lisa Aparicio RJarad) 1232 (Not Given - Provider: Gonzales Albert RNeriNNeri - Reason: Order parameters not met) PRN Medication Order 09/20/2024 09/21/2024 09/22/2024 bisacodyL suppository 10 mg (Dulcolax) 10 mg, rectal, Daily PRN, constipation, Starting on Thu09/21/24 at 1701, Ordered sequence of administration: polyethylene glycol, then bisacodyl until BM achieved. fentaNYL injection 25 mcg (Sublimaze) (CANCELED) 25 mcg, intravenous, Every 1 hour PRN, moderate pain or score 4-6 of 10, severe pain or score 7-10 of 10, Starting on Thu09/21/24 at 1225 1404 (Given - Provider: Gaby Strauss RNeriNNeri) HYDROmorphone (PF) injection 0.2 mg (Dilaudid) 0.2 mg, intravenous, Every 2 hour PRN, severe pain or score 7-10 of 10, breakthrough pain, Starting on Thu09/21/24 at 1701, For breakthrough pain unrelieved 30 minutes after PRN oral pain medication is used; or if unable to take oral pain medication. iohexoL 350 mg iodine/mL solution 1-200 mL (Omnipaque) (COMPLETED) 1-200 mL, intravenous, Once in imaging, contrast, Starting on Thu09/21/24 at 1241, For 1 dose, Imaging Protocol Orders, Dose per Radiant Medication Guidelines 1252 (Given - Provider: Elias Thorne R.N.) LORazepam tablet 1 mg (Ativan) 1 mg, oral, Bedtime PRN, anxiety, Starting on Thu09/21/24 at 2210 2255 (Given - Provider: Lisa Aparicio R.N.) naloxone injection 0.2 mg (Narcan) 0.2 mg, intravenous, As needed, respiratory depression, Starting on Thu09/21/24 at 1701, For RASS Score -4 or less, respiratory rate of less than 8 breaths/min. Notify provider/service and rapid response team (if available at institution). ondansetron (PF) injection 4 mg (Zofran) 4 mg, intravenous, Every 6 hours PRN, nausea, vomiting, Starting on Thu09/21/24 at 1701, Reassess for nausea or vomiting after at least 10 minutes. If nausea or vomiting persists administer next ordered antiemetic medications (order for antiemetic medication administration ondansetron then prochlorperazine). ondansetron ODT disintegrating tablet 4 mg (Zofran-ODT) 4 mg, oral, Every 6 hours PRN, nausea, vomiting, Starting on Thu09/21/24 at 1701, Use ondansetron before droperidol. When splitting ODT at bedside, handle with gloves and a pill splitter to prevent moisture contact. oxyCODONE IR tablet 10 mg (Roxicodone)(Linked Group 1) 10 mg, oral, Every 4 hours PRN, severe pain or score 7-10 of 10, for breakthrough pain, Starting on Thu09/21/24 at 1701, Pain unrelieved by other oral analgesics. 1805 (Given - Provider: Samantha Serna R.N.)2255 (Given - Provider: Lisa Aparicio R.N.) 0807 (See Alternative - Provider: Araceli Kirkpatrick RNeriNNeri)1214 (Given - Provider: Elvin Molina R.N.) oxyCODONE IR tablet 5 mg (Roxicodone)(Linked Group 1) 5 mg, oral, Every 4 hours PRN, moderate pain or score 4-6 of 10, for breakthrough pain, Starting on Thu09/21/24 at 1701, Pain unrelieved by other oral analgesics. 1805 (See Alternative - Provider: Samantha Serna RJarad)2255 (See Alternative - Provider: Lisa Aparicio R.N.) 0807 (Given - Provider: Mansi IvoryNNeri)1214 (See Alternative - Provider: Elvin Molina R.N.) polyethylene glycol powder packet 1 packet (Miralax) 1 packet, oral, Daily PRN, constipation, Starting on Thu09/21/24 at 1701, Dissolve in 240 mLs (8 ounces) of water prior to giving. Avoid mixing with starch-based thickened liquids. prochlorperazine injection 5 mg (Compazine) 5 mg, intravenous, Every 6 hours PRN, nausea, vomiting, Starting on Thu09/21/24 at 1701, RASS must be -2 or higher to administer. Reassess for nausea/vomiting after at least 10 minutes. If nausea or vomiting persists administer next ordered antiemetic medications (order for antiemetic medication administration ondansetron then prochlorperazine) sodium chloride 0.9 % injection 10 mL 10 mL, intravenous, As needed, line care, Starting on Thu09/21/24 at 1218, Peripheral Intravenous Catheter and Rapid Infusion Catheter, prior to blood sampling, post blood transfusion or post blood sampling sodium chloride 0.9 % injection 3 mL 3 mL, intravenous, As needed, line care, Starting on Thu09/21/24 at 1218, Prior to and following infusion and between multiple consecutive infusions: sodium chloride 0.9 % injection Linked Groups Order Group 1: oxyCODONE IR tablet 5 mg (Roxicodone)Jump to med 5 mg, oral, Every 4 hours PRN, moderate pain or score 4-6 of 10, for breakthrough pain, Starting on Thu09/21/24 at 1701, Pain unrelieved by other oral analgesics. Or oxyCODONE IR tablet 10 mg (Roxicodone)Jump to med 10 mg, oral, Every 4 hours PRN, severe pain or score 7-10 of 10, for breakthrough pain, Starting on Thu09/21/24 at 1701, Pain unrelieved by other oral analgesics. documented in this encounter Care Teams Type Photography Supervisor Relationship Specialty Start Date End Date Tiana Ma M.D. [address] [place] [phone] PCP - General Family Medicine 09/22/24 documented as of this encounter
--- OUTSIDE RECORDS SUMMARY | 2024-09-24 10:09 | XMS_ITS | Encounter Summary ---
Author Organization [facility] Address [address] [place] [address] Care Team Providers Care Wire Transfer Clerk Name Role Phone Tiana Ma M.D. Primary Care Provider [phone] Encounter Details Date Type Department Care Team (Latest Contact Info) Description 09/21/2024 Intake [facility] Social History Tobacco Use Types Packs/Day Years Used Date Smoking Tobacco: Some Days Cigarettes Smokeless Tobacco: Never Comments:socially Alcohol Use Standard Drinks/Week Comments No 0 (1 standard drink = 0.6 oz pur e alcohol) [facility] Utilities Answer Date Recorded In the past 12 months has e [employer], gas, oil, or water [employer] threatened to shut off services in your [...] your living situation today? I have a [facility] place to live 09/21/2024 Sex and Gender Information Value Date Recorded Sex Assigned at Not on file Legal Sex Male 7:15 PM SUPERVISOR CRACK OFF Gender Identity Not on file Sexual Orientation Not on file documented as of this encounter Plan of Treatment Upcoming Encounters Date Type Department Care Team (Late st Contact Info) Description 10/06/2024 10:30 AM SUPERVISOR CRACK OFF Office Visit Department of Family Medicine, [facility] [place], in [place], [place] [address] [phone] Rhett Montes De Oca M.D. [address] [place] [phone] 10/07/2024 7:15 AM SUPERVISOR CRACK OFF Appointment Department of Radiology, [facility], in [place], [place] [address] [place] [phone] Theresa Pandya P.A.-C. [address] [place] [phone] 10/07/2024 8:00 AM SUPERVISOR CRACK OFF Office Visit Division of Trauma Critical Care and General Surgery in [address] [phone] Theresa Pandya P.A.-C. [address] [place] [phone] 10/13/2024 10:00 AM SUPERVISOR CRACK OFF Appointment Department of Radiology, [facility] in [address] [phone] Ce Braxton P.A.-C., M.S. [address] [place] [phone] Discharge Disposition: Home or Self Care 10/13/2024 11:00 AM SUPERVISOR CRACK OFF Office Visit Department of Orthopedic Surgery in [address] [phone] Ce Braxton P.A.-C., M.S. [address] [place] [phone] documented as of this encounter Visit Diagnoses Not on filedocumented in this encounter Care Teams Wire Transfer Clerk Relationship Specialty Start Date End Date Tiana Ma M.D. [address] [place] [phone] PCP - General Family Medicine 09/22/24 documented as of this encounter
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
[2024-09-24 10:11] LABS: Slide Review Reflex No
[2024-09-24 10:20] LABS: Albumin* 4.3 g/dL (3.3-5.0)
[2024-09-24 10:21] LABS: Chloride* 99 mmol/L (96-114); Sodium* 135 mmol/L (135-149)
[2024-09-24 10:22] LABS: INR 1.03 (0.91-1.10); Prothrombin Time 14.1 Seconds
[2024-09-24 10:23] LABS: Alkaline Phosphatase* 40 U/L (40-150); Anion Gap 7 mEq/L (7-15); Aspartate Amino Transferase* 68 U/L (12-35); Bilirubin Total* 0.5 mg/dL (0.1-1.5); Blood Urea Nitrogen* 8 mg/dL (5-24); Carbon Dioxide* 29 mmol/L (20-32); Creatinine* 0.6 mg/dL (0.5-1.5); Est. Creatinine Clearance* 200.45; Estimated Glomerular Filt Rate 137 ml/min; Total Protein* 6.8 g/dL (6.0-8.3)
[2024-09-24 10:24] LABS: Alanine Aminotransferase* 52 U/L (4-50); Calcium* 8.9 mg/dL (8.4-10.6); Glucose* 98 mg/dL (60-115)
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
== END 2024-09-24 11:55 | disposition home or self-care (01) ==
PROVIDERS: Emergency Provider Internal Medicine
DX: J94.2 Hemothorax (principal)
CPT/HCPCS: 36415; 71250; 80053; 85025; 85610; 99284

== ENCOUNTER 2024-09-24 11:50 | Outpatient (CLI) | payer SELFPAY ==
--- OUTSIDE RECORDS SUMMARY | 2024-09-30 23:52 | XMS_ITS | Referral Summary ---
Author Organization [facility] Address [address] [place] [address] Phone Care Team Providers Care Supervisor Endless Track Vehicle Name Role Phone Unavailable Primary Care Provider Unavailabl e Source Comments [employer] is fully rolled out on [employer]. Last update 04/06/09.[facility] Encounters Date Type Department Care Team Description 09/24/2024 12:47 PM SEO MANAGER - 09/28/2024 5:41 PM SEO MANAGER Hospital Encounter [facility] Surgery/Trauma/Neur o [address] [place] [address] Alok Suazo MD Payne, Rachel E, MD Smith, Mark D, MD Trauma Discharge Disposition: Discharged to home or self care 09/26/2024 Orders Only Unspecified Department [place] Unknown, Provider 09/26/2024 Orders Only [facility] Film Room [facility] Radiology Department [facility]ON[facility] [address] [place] [address] Provider, Outside Referral of patient (Primary Dx) 09/26/2024 Orders Only Unspecified Department [place] Unknown, Provider 09/25/2024 Orders Only Unspecified Department [place] Unknown, Provider 09/24/2024 Travel from Last 3 Months Allergies No known active allergies Medications * Be aware that medications may not be up to date as of this document. Always verify current medications with patient. acetaminophen (TYLENOL) 325 mg oral tablet Take 2 tablets (650 mg) by mouth every 4 hours. 100 each 09/28/2024 4:04 PM SEO MANAGER 09/28/2024 Active oxyCODONE (ROXICODONE) 5 mg oral tablet Take 1-2 tablets (5-10 mg) by mouth every 4 hours as needed for Pain. 24 tablet 09/28/2024 4:04 PM SEO MANAGER 09/28/2024 Active polyethylene glycol 3350 (MIRALAX/GLUCOL AX) 17 gm/scoop oral powder Mix 1 capful (17 gm) with full glass of water and drink once every day as directed. 238 g 09/28/2024 4:04 PM SEO MANAGER 09/29/2024 Active sennosides-docu sate sodium (STOOL SOFTENER/LAXATI VE) 8.6-50 mg oral tablet Take 1 tablet by mouth twice daily. 30 each 09/28/2024 4:04 PM SEO MANAGER 09/28/2024 Active cyclobenzaprine (FLEXERIL) 10 mg oral Take 1 tablet (10 mg) by mouth 3 times daily. 24 tablet 09/28/2024 4:04 PM SEO MANAGER 09/28/2024 Active Active Problems Problem Noted Date Diagnosed Date Trauma 09/24/2024 Traumatic pneumothorax, initial encounter 2023 Social History Tobacco Use Types Packs/Day Years Used Date Smoking Tobacco: Never Assessed Humiliation, Afraid, Rape, and Kick questionnair e Answer Date Recorded Within the last year, have y ou been afraid of your partner or ex-partner? No 09/25/2024 Within the last year, have y ou been humiliated or emotionally abused in other ways by your partner or ex-partner? No 09/25/2024 Physically Abused Not on file 09/25/2024 Within the last year, have y ou been raped or forced to have any kind of sexual activity by your partner or ex-partner? No 09/25/2024 Overall Financial Resource Strain (CARDIA) Answe r Date Recorded How hard is it for you to pa y for the very basics like food, housing, medical care, and heating? Not hard at all 09/25/2024 Hunger Vital Sign Answer Date Recorded Within the past 12 months, y ou worried that your food would run out before you got the money to buy more. Never true 09/25/20 24 Within the past 12 months, t he food you bought just didn't last and you didn't have money to get more. Never true 09/25/2024 PRAPARE - Transportation Answer Date Re corded In the past 12 months, has l ack of transportation kept you from medical appointments or from getting medications? No 09/03 In the past 12 months, has l ack of transportation kept you from meetings, work, or from getting things needed for daily living? No 09/25/2024 Housing Stability Answer Date Recorded What is your housing situation today? 3 - I have housing 09/25/2024 Sex and Gender Information Value Date Recorded Sex Assigned at Not on file Legal Sex Male 11:38 AM SEO MANAGER Gender Identity Not on file Sexual Orientation Not on file Last Filed Vital Signs Vital Sign Reading Time Taken Comments Blood Pressure 150/84 09/28/2024 3:39 PM SEO MANAGER Pulse 91 09/28/2024 3:39 PM SEO MANAGER Temperature 36.1 C (97 F) 09/28/2024 3:39 PM SEO MANAGER Respiratory Rate 16 09/28/2024 3:39 PM SEO MANAGER Oxygen Saturation 99% 09/28/2024 3:39 PM SEO MANAGER Inhaled Oxygen Concentration - - Weight 79 kg (174 lb 2.6 oz) 09/24/2024 12:58 PM SEO MANAGER Height - - Body Mass Index - - Plan of Treatment Upcoming Encounters Date Type Department Care Team (Late st Contact Info) Description 10/10/2024 9:30 AM SEO MANAGER [facility] [address] [place] [id number] Shaila, Gen Surg Trauma [address] [place] [id number] Scheduled Discharge Disposition: Discharged to home or self care 11/03/2024 1:00 PM SEO MANAGER Office Visit [facility] [address] [place] [id number] Talha Anderson MD [address] [address] Scheduled Discharge Disposition: Discharged to home or self care Procedures Procedure Name Priority Date/Time Associated Diagnosis Comments XR CHEST 1 VIEW AP OR PA* Timed 09/28/2024 4:00 PM SEO MANAGER PC LAB CBC/PLT Routine 09/28/2024 7:10 AM SEO MANAGER PANEL BASIC METABOLIC (BMP) Routine 09/28/2024 7:09 AM SEO MANAGER XR CHEST 1 VIEW AP OR PA* Timed 09/28/2024 6:11 AM SEO MANAGER PANEL BASIC METABOLIC (BMP) Routine 09/27/2024 9:33 AM SEO MANAGER TC LAB BLOOD DRAW BY VENIPUNCTURE Routine 09/27/2024 9:33 AM SEO MANAGER XR CHEST 1 VIEW AP OR PA* Routine 09/27/2024 6:11 AM SEO MANAGER XR CHEST 1 VIEW AP OR PA* Timed 09/26/2024 11:42 AM SEO MANAGER TELEMETRY STRIPS 09/26/2024 7:25 AM SEO MANAGER XR CHEST 1 VIEW AP OR PA* Timed 09/26/2024 6:28 AM SEO MANAGER PHOSPHORUS Routine 09/26/2024 5:51 AM SEO MANAGER MAGNESIUM Routine 09/26/2024 5:51 AM SEO MANAGER PANEL BASIC METABOLIC (BMP) Routine 09/26/2024 5:51 AM SEO MANAGER TC LAB BLOOD DRAW BY VENIPUNCTURE Routine 09/26/2024 5:51 AM SEO MANAGER TELEMETRY STRIPS 09/26/2024 4:19 AM SEO MANAGER TELEMETRY STRIPS 09/25/2024 8:33 PM SEO MANAGER HEMOGLOBIN Timed 09/25/2024 6:04 PM SEO MANAGER LUNG AIRWAY CLEARANCE EXPANSION PROTOCOL Routine 09/25/2024 4:22 PM SEO MANAGER XR CHEST 1 VIEW AP OR PA* Routine 09/25/2024 12:[address] OUTSIDE READ SPINE CERVICAL/NECK Routine 09/25/2024 9:[address] OUTSIDE READ HEAD/FACIAL BONES Routine 09/25/2024 9:[address] OUTSIDE READ SPINE THORACIC/LUMBAR Routine 09/25/2024 9:[address] OUTSIDE READ SPINE CERVICAL/NECK Routine 09/25/2024 9:[address] OUTSIDE READ HEAD/FACIAL BONES Routine 09/25/2024 9:24 AM SEO MANAGER PC ELECTROLYTES PANEL STAT 09/25/2024 7:35 AM SEO MANAGER PC LAB CBC W/DIFF & PLT STAT 09/25/2024 7:35 AM SEO MANAGER TC LAB ER STAT TOTAL HGB STAT 09/24/2024 11:22 PM SEO MANAGER TC LAB ER STAT TOTAL HGB STAT 09/24/2024 7:55 PM SEO MANAGER XR SHOULDER LT 2/3V AP/GRASH/Y* Routine 09/24/2024 5:31 PM SEO MANAGER SEDATION Routine 09/24/2024 4:40 PM SEO MANAGER XR CHEST 1 VIEW AP OR PA* STAT 09/24/2024 4:34 PM SEO MANAGER PF INSERTION OF CHEST TUBE Routine 09/24/2024 4:32 PM SEO MANAGER ED EKG (12-LEAD) Routine 09/24/2024 1:[address] CHEST/ABD/PELVIS W/IV CONT STAT 09/24/2024 1:35 PM SEO MANAGER XR CHEST 1 VIEW AP OR PA* STAT 09/24/2024 1:01 PM SEO MANAGER PRECAUTIONARY TUBE STAT 09/24/2024 12 :56 PM SEO MANAGER EXTRA TUBE - SST Routine 09/24/2024 12:5 5 PM SEO MANAGER PC TROPONIN QUANTITATIVE STAT 09/24/2024 12:55 PM SEO MANAGER ETHANOL (ETOH) LEVEL, BLOOD STAT 09/24/2024 12:55 PM SEO MANAGER PC LAB PTT STAT 09/24/2024 12:55 PM SEO MANAGER PC LAB ED INR STAT 09/24/2024 12:55 PM SEO MANAGER PC LACTATE (LACTIC ACID) STAT 09/24/2024 12:55 PM SEO MANAGER FIBRINOGEN STAT 09/24/2024 12:55 PM SEO MANAGER PANEL HEPATIC FUNCTION STAT 12:55 PM SEO MANAGER TC LAB ER STAT TOTAL HGB STAT 09/24/2024 12:55 PM SEO MANAGER PC IONIZED,CALCIUM STAT 09/24/2024 12 :55 PM SEO MANAGER PC LAB CBC W/DIFF & PLT STAT 09/24/2024 12:55 PM SEO MANAGER PC GASES,BLOOD,ANY COMB OF PH,PCD2,PO2,CO2,HCO2 STAT 09/24/2024 12:55 PM SEO MANAGER ED US CRITICAL CARE STAT 09/24/2024 1 2:[address] CHEST OUTSIDE FILMS Routine 9:46 AM SEO MANAGER Referral of patient CT CHEST/ABDOMEN/PELVIS OUTSIDE FILMS Routine 09/21/2024 9:01 AM SEO MANAGER Referral of patient from Last 3 Months Results * XR CHEST 1 VIEW AP OR PA* (09/28/2024 4:00 PM SEO MANAGER) Only the most recent of8 resultswithin the time period is included. Anatomical Region Laterality Modality Chest Computed Radiogr aphy 09/28/2024 4:02 PM SEO MANAGER Impressions 09/28/2024 4:02 PM SEO MANAGER Impression: Small left apical pneumothorax with chest tube removed. Reading Radiologist: Freddy Flores Narrative 09/28/2024 4:02 PM SEO MANAGER Technique: XR CHEST 1 VIEW AP OR PA* Indication: chest tube pulled, repeat xray Comparison: 09/28/2024 at 6:14 AM Findings: Multiple left rib fractures and lateral lung opacity, unchanged. Left chest tube out. Small apical pneumothorax, similar to the morning's exam. Right lung clear. Procedure Note Freddy Flores MD - 09/28/2024 Technique: XR CHEST 1 VIEW AP OR PA* Indication: chest tube pulled, repeat xray Comparison: 09/28/2024 at 6:14 AM Findings: Multiple left rib fractures and lateral lung opacity, unchanged.Left chest tube out. Small apical pneumothorax, similar to the morning'sexam. Right lung clear. IMPRESSION Impression: Small left apical pneumothorax with chest tube removed. Reading Radiologist: Freddy Flores Gabby Kaur MD RAD XRAY Final Result * (ABNORMAL) CBC WITH PLATELET (09/28/2024 7:10 AM SEO MANAGER) Only the most recent of3 resultswithin the time period is included. WBC 9.05 4.00 - 10.00 k/cmm [facility] LAB RBC 2.99(L) 4.60 - 6.00 m/cmm [facility] Hgb 9.0(L) 13.1 - 17.5 g/dL [facility] Hematocrit 27.5(L) 40.0 - 51.0 % [facility] MCV 92.0 80.0 - 100.0 fL [facility] MCH 30.1 25.0 - 32.0 pg [facility] MCHC 32.7 31.0 - 36.0 g/dL [facility] RDW 12.3 11.5 - 14.5 % [facility] LAB Plt 337 150 - 400 k/cmm [facility] MPV 9.0 6.5 - 12.5 fL [facility] Blood 09/28/2024 7:10 AM SEO MANAGER 09/28/2024 7:19 AM SEO MANAGER us Krista Avila APRN, HOT BLASTER LABORATORY Fin al Result [facility] [address] [address] * (ABNORMAL) PANEL BASIC METABOLIC (BMP) (09/28/2024 7:09 AM SEO MANAGER) Only the most recent of3 resultswithin the time period is included. CO2 25 22 - 30 mmol/L [facility] Glucose 99 70 - 100 mg/dL [facility] BUN 9 6 - 20 mg/dL [facility] Creatinine 0.68(L) 0.70 - 1.25 mg/dL [facility] Calcium 9.1 8.6 - 10.0 mg/dL [facility] Sodium 136 135 - 148 mmol/L [facility] Potassium 4.2 3.5 - 5.3 mmol/L [facility] Chloride 101 92 - 108 mmol/L [facility] eGFR (2020 CKD-EPI) >120 >=60 ml/min/1.7 3m2 [facility] Comment: The estimated glomerular filtration rate (eGFR) was calculated using the CKD-EPI 2020 creatinine equation, which does not include race as a factor. This equation is validated in individuals 18 years of age and older, and eGFR is normalized to a body surface area of 1.73m^2. AnGap 10 8 - 16 mmol/L [facility] Blood 09/28/2024 7:09 AM SEO MANAGER 09/28/2024 7:19 AM SEO MANAGER us Krista Avila APRN, HOT BLASTER LABORATORY Jose guadalupe Result - Final [address] [address] * TELEMETRY STRIPS (09/26/2024 7:25 AM SEO MANAGER) Only the most recent of3 resultswithin the time period is included. Narrative 09/26/2024 7:25 AM SEO MANAGER Ordered by an unspecified provider. us Provider Unknown RAD ECHO Final Result * PHOSPHORUS (09/26/2024 5:51 AM SEO MANAGER) Phosphorus 3.7 2.5 - 4.5 mg/dL [facility] LAB Blood 09/26/2024 5:51 AM SEO MANAGER 09/26/2024 6:33 AM SEO MANAGER us Gabby Kaur MD LABORATORY Final Result Performing Organization Address [facility] Co de Phone Number [address] [address] * MAGNESIUM (09/26/2024 5:51 AM SEO MANAGER) Magnesium 2.4 1.6 - 2.6 mg/dL [facility] LAB Blood 09/26/2024 5:51 AM SEO MANAGER 09/26/2024 6:33 AM SEO MANAGER us Gabby Kaur MD LABORATORY Final Result Performing Organization Address [facility] Co de Phone Number [address] [address] * (ABNORMAL) HEMOGLOBIN (09/25/2024 6:04 PM SEO MANAGER) Hgb 9.5(L) 13.1 - 17.5 g/dL [facility] LAB Blood 09/25/2024 6:04 PM SEO MANAGER 09/25/2024 6:11 PM SEO MANAGER us Krista Avila [employer]LE[employer]ACH, HOT BLASTER LABORATORY Fin al Result Performing Organization Address [facility] Co de Phone Number [address] [address] * CT OUTSIDE READ SPINE CERVICAL/NECK (09/25/2024 9:37 AM SEO MANAGER) Only the most recent of2 resultswithin the time period is included. Anatomical Region Laterality Modality Cervical Spine Computed Tomogra phy 09/25/2024 2:16 PM SEO MANAGER Impressions 09/25/2024 2:23 PM SEO MANAGER Impression: 1.Neck CT angiogram demonstrates no traumatic injury or significant stenosis of the major cervical arteries. 2.There is a 2 mm saccular outpouching arising from proximal A2 segment of the left anterior cerebral artery, likely representing a small aneurysm. Reading Radiologist: Chelsie Juarez Narrative 09/25/2024 2:23 PM SEO MANAGER Indication: Patient transferred from [facility] due to Trauma. No initial report accompanied the patient and/or Dr. KRISTA AVILA requested an interpretation by me. Technique: CT scan of the neck angiogram done on 09/21/2024 with IV contrast. 3 mm axial, sagittal and coronal reconstructions reviewed in soft tissue and bone windows, per the local institution's scanning protocols, which may differ from the [facility] trauma protocols. Findings: CT Angiogram Neck: Aortic Arch & Great Vessels: The aortic arch and great vessel origins are unremarkable. NASCET cervical carotid artery measurements: Right distal internal carotid artery = 5 mm with less than 10% diameter stenosis at the bulb. Left distal internal carotid artery = 5 mm with less than 10% diameter stenosis at the bulb. Right vertebral artery: Patent throughout its course. Left vertebral artery: Patent throughout its course. Visualized soft tissues of the neck are grossly normal. Right greater than left pneumothorax. Left predominant pulmonary groundglass opacities, likely representing pulmonary contusion. Partial intracranial CTA demonstrates a 2 mm saccular outpouching arising from proximal A2 segment of the left anterior cerebral artery, likely representing a small aneurysm. There is no significant stenosis of the major intracranial arteries. The anterior communicating artery is patent. Regarding the posterior communicating arteries, both are patent. Procedure Note Chelsie Juarez MD - 09/25/2024 Indication: Patient transferred from [facility] due to Trauma.No initial report accompanied the patient and/or Dr. KRISTA Levyequested an interpretation by me. Technique: CT scan of the neck angiogram done on 09/21/2024 with IVcontrast. 3 mm axial, sagittal and coronal reconstructions reviewed insoft tissue and bone windows, per the local institution's scanningprotocols, which may differ from the [facility] trauma protocols. Findings: CT Angiogram Neck: Aortic Arch & Great Vessels: The aortic arch and great vessel origins areunremarkable. NASCET cervical carotid artery measurements: Right distal internal carotid artery = 5 mm with less than 10% diameterstenosis at the bulb. Left distal internal carotid artery = 5 mm with less than 10% diameterstenosis at the bulb. Right vertebral artery: Patent throughout its course. Left vertebral artery: Patent throughout its course. Visualized soft tissues of the neck are grossly normal. Right greater than left pneumothorax. Left predominant pulmonarygroundglass opacities, likely representing pulmonary contusion. Partial intracranial CTA demonstrates a 2 mm saccular outpouching arisingfrom proximal A2 segment of the left anterior cerebral artery, likelyrepresenting a small aneurysm. There is no significant stenosis of themajor intracranial arteries. The anterior communicating artery is patent.Regarding the posterior communicating arteries, both are patent. IMPRESSION Impression: 1.Neck CT angiogram demonstrates no traumatic injury or significantstenosis of the major cervical arteries. 2.There is a 2 mm saccular outpouching arising from proximal A2 segment ofthe left anterior cerebral artery, likely representing a small aneurysm. Reading Radiologist: Chelsie Juarez Krista Avila APRN, HOT BLASTER RAD CT NEURO Fin al Result * CT OUTSIDE READ HEAD/FACIAL BONES (09/25/2024 9:29 AM SEO MANAGER) Only the most recent of2 resultswithin the time period is included. Anatomical Region Laterality Modality Skull Computed Tomogra phy 09/25/2024 2:13 PM SEO MANAGER Impressions 09/25/2024 2:16 PM SEO MANAGER Impression: No acute facial bone fractures. Reading Radiologist: Chelsie Juarez Narrative 09/25/2024 2:16 PM SEO MANAGER Indication: Patient transferred from [facility] due to Trauma. No initial report accompanied the patient and/or Dr. KRISTA AVILA requested an interpretation by me. Technique: CT scan of the facial bone done on 09/21/2024 without IV contrast. 3 mm axial and coronal reconstructions reviewed in soft tissue and bone windows, per the local institution's scanning protocols, which may differ from the [facility] trauma protocols. Findings: There is no significant soft tissue swelling of the face. There is no evident acute fracture of the facial bones. Chronic fracture of left lamina papyracea. The cribriform plate appears intact. Alignment of the facial bones appears normal. There is no hematoma, soft tissue mass or emphysema visualized within the orbits. Scattered paranasal sinus mucosal thickening. Review of visualized dentition does not reveal significant periapical dental disease. Procedure Note Chelsie Juarez MD - 09/25/2024 Indication: Patient transferred from [facility] due to Trauma.No initial report accompanied the patient and/or Dr. KRISTA LEENrequested an interpretation by me. Technique: CT scan of the facial bone done on 09/21/2024 without IVcontrast. 3 mm axial and coronal reconstructions reviewed in soft tissueand bone windows, per the local institution's scanning protocols, whichmay differ from the [facility] trauma protocols. Findings: There is no significant soft tissue swelling of the face. There is noevident acute fracture of the facial bones. Chronic fracture of leftlamina papyracea. The cribriform plate appears intact. Alignment of thefacial bones appears normal. There is no hematoma, soft tissue mass or emphysema visualized within theorbits. Scattered paranasal sinus mucosal thickening. Review of visualizeddentition does not reveal significant periapical dental disease. IMPRESSION Impression: No acute facial bone fractures. Reading Radiologist: Chelsie Juarez us Krista Avila COLLEGE BASKETBALL COACH, HOT BLASTER RAD CT NEURO Fin al Result * CT OUTSIDE READ SPINE THORACIC/LUMBAR (09/25/2024 9:28 AM SEO MANAGER) Anatomical Region Laterality Modality Lumbar Spine, Thoracic Spine Com puted Tomography 09/25/2024 2:23 PM SEO MANAGER Impressions 09/25/2024 2:30 PM SEO MANAGER Impression: 1. No evidence for acute fracture/dislocation of the thoracic spine. 2. No evidence for acute fracture/dislocation of the lumbar spine. 3. Acute left first through fifth rib fractures. Bilateral pneumothorax. Left pulmonary contusion and hemothorax. Reading Radiologist: Chelsie Juarez Narrative 09/25/2024 2:30 PM SEO MANAGER Indication: Patient transferred from [facility] due to Trauma. No initial report accompanied the patient and/or Dr. KRISTA AVILA requested an interpretation by me. Technique: CT scan of the thoracic/lumbar spine done on 09/21/2024 IV contrast. 3 mm axial, sagittal and coronal reconstructions reviewed in soft tissue and bone windows, per the local institution's scanning protocols, which may differ from the [facility] trauma protocols. Findings: Thoracic spine: There is no acute fracture or dislocation of the thoracic vertebrae. Alignment of the thoracic vertebrae appears within normal limits. T3 superior endplate and T6-7 inferior endplates Schmorl's nodes formation. The spinal canal and the neural foramina bilaterally are grossly patent at all visualized levels. The visualized prevertebral and paravertebral soft tissues are unremarkable. Acute left first through fifth rib fractures. Bilateral pneumothorax. Left pulmonary contusion and hemothorax. Lumbar spine: There is no fracture or dislocation of the lumbar vertebrae. Alignment of the lumbar vertebrae appears within normal limits. There is no significant disc height narrowing at any level. The visualized prevertebral and paravertebral soft tissues are unremarkable. Findings on a level by level basis are as follows: T12-L1: No focal abnormality. L1-L2: No focal abnormality. L2-3: No focal abnormality. L3-4: No focal abnormality. L4-5: No focal abnormality. L5-S1: No focal abnormality. Procedure Note Chelsie Juarez MD - 09/25/2024 Indication: Patient transferred from [facility] due to Trauma.No initial report accompanied the patient and/or Dr. KRISTA LEENrequested an interpretation by me. Technique: CT scan of the thoracic/lumbar spine done on 09/21/2024 IVcontrast. 3 mm axial, sagittal and coronal reconstructions reviewed insoft tissue and bone windows, per the local institution's scanningprotocols, which may differ from the [facility] trauma protocols. Findings: Thoracic spine: There is no acute fracture or dislocation of the thoracicvertebrae. Alignment of the thoracic vertebrae appears within normallimits. T3 superior endplate and T6-7 inferior endplates Schmorl's nodesformation. The spinal canal and the neural foramina bilaterally aregrossly patent at all visualized levels. The visualized prevertebral andparavertebral soft tissues are unremarkable. Acute left first throughfifth rib fractures. Bilateral pneumothorax. Left pulmonary contusion andhemothorax. Lumbar spine: There is no fracture or dislocation of the lumbar vertebrae.Alignment of the lumbar vertebrae appears within normal limits. There isno significant disc height narrowing at any level. The visualizedprevertebral and paravertebral soft tissues are unremarkable. Findings on a level by level basis are as follows: T12-L1: No focal abnormality. L1-L2: No focal abnormality. L2-3: No focal abnormality. L3-4: No focal abnormality. L4-5: No focal abnormality. L5-S1: No focal abnormality. IMPRESSION Impression: 1. No evidence for acute fracture/dislocation of the thoracic spine. 2. No evidence for acute fracture/dislocation of the lumbar spine. 3. Acute left first through fifth rib fractures. Bilateral pneumothorax.Left pulmonary contusion and hemothorax. Reading Radiologist: Chelsie Juarez us Krista Avila APRN, HOT BLASTER RAD CT NEURO Fin al Result * (ABNORMAL) ED CHEMISTRY LABS(NA,K,CL,CO2,GLU,CREAT,CA-IONIZED,ANION GAP) (09/25/2024 7:35 AM SEO MANAGER) Only the most recent of2 resultswithin the time period is included. Sodium 134(L) 135 - 148 mmol/L [facility] Chloride 99 92 - 108 mmol/L [facility] AnGap 7(L) 8 - 16 mmol/L [facility] Glucose 102(H) 70 - 100 mg/dL [facility] ICA, Actual 4.21(L) 4.40 - 5.20 mg/dL [facility] ICA, pH Corrected 4.34(L) 4.40 - 5.20 mg/dL [facility] Creatinine 0.81 0.70 - 1.25 mg/dL [facility] BICARB 28(H) 22 - 26 mEq/L [facility] eGFR (2020 CKD-EPI) >120 >=60 ml/min/1.7 3m2 [facility] Comment: The estimated glomerular filtration rate (eGFR) was calculated using the CKD-EPI 2020 creatinine equation, which does not include race as a factor. This equation is validated in individuals 18 years of age and older, and eGFR is normalized to a body surface area of 1.73m^2. Potassium na 3.5 - 5.3 mmol/L [facility] Comment:Potassium = 4.2. Res ult suspect due to hemolysis. Blood 09/25/2024 7:35 AM SEO MANAGER 09/25/2024 7:42 AM SEO MANAGER us Alok Suazo MD LABORATORY Edited Result - Final [facility] [address] [address] * (ABNORMAL) CBC WITH PLTS/AUTO DIFF (09/25/2024 7:35 AM SEO MANAGER) Only the most recent of2 resultswithin the time period is included. WBC 7.12 4.00 - 10.00 k/cmm [facility] RBC 3.19(L) 4.60 - 6.00 m/cmm [facility] Hgb 9.8(L) 13.1 - 17.5 g/dL [facility] Hematocrit 28.5(L) 40.0 - 51.0 % [facility] MCV 89.3 80.0 - 100.0 fL [facility] MCH 30.7 25.0 - 32.0 pg [facility] MCHC 34.4 31.0 - 36.0 g/dL [facility] RDW 11.8 11.5 - 14.5 % [facility] Plt 217 150 - 400 k/cmm [facility] MPV 11.0 6.5 - 12.5 fL [facility] Automated Abs Neutrophil 5.18 1.70 - 6.50 k/cmm [facility] Comment:Preliminary ANC, Fin al Result to Follow Abs Immature Granulocyte 0.03 0.00 - 0.09 k/cmm [facility] Comment:The Immature Granulo cyte Absolute count contains metamyelocytes and myelocytes. Abs Neutrophil 5.18 1.70 - 6.50 k/cmm [facility] Abs Lymphocyte 0.71(L) 0.80 - 4.00 k/cmm [facility] Abs Monocyte 0.79 0.20 - 1.00 k/cmm [facility] Abs Eosinophil 0.36 0.00 - 0.60 k/cmm [facility] Abs Basophil 0.05 0.00 - 0.20 k/cmm [facility] Blood 09/25/2024 7:35 AM SEO MANAGER 09/25/2024 7:56 AM SEO MANAGER us Alok Suazo MD LABORATORY Edited Result - Final Performing Organization Address [facility]/ZIP Co de Phone Number [facility] [address] [address] * (ABNORMAL) ED HEMOGLOBIN TOTAL (ED ONLY) (09/24/2024 11:22 PM SEO MANAGER) Only the most recent of3 resultswithin the time period is included. Hgb 9.7(L) 13.1 - 17.5 g/dL [facility] Blood 09/24/2024 11:2 2 PM SEO MANAGER 09/24/2024 11:28 PM SEO MANAGER us Alok Suazo MD LABORATORY Final Result Performing Organization Address [facility] de Phone Number [facility] [address] [address] * XR SHOULDER LT 2/3V AP/GRASH/Y* (09/24/2024 5:31 PM SEO MANAGER) Anatomical Region Laterality Modality Upper Arm Computed Radiogr aphy 09/24/2024 5:36 PM SEO MANAGER Impressions 09/24/2024 5:39 PM SEO MANAGER Impression: Mildly displaced comminuted fracture involving the superior border of the scapula extending into the coracoid base and component along the body segment. Widening of the left AC joint with mild superior deviation of the clavicle compatible with grade 3 AC separation. Reading Radiologist: Gonzales Adame Narrative 09/24/2024 5:39 PM SEO MANAGER Technique: XR SHOULDER LT 2/3V AP/GRASH/Y* Indication: left scapula fx Comparison: Same-day CT Procedure Note Gonzales Adame DO - 09/24/2024 Technique: XR SHOULDER LT 2/3V AP/GRASH/Y* Indication: left scapula fx Comparison: Same-day CT IMPRESSION Impression: Mildly displaced comminuted fracture involving the superiorborder of the scapula extending into the coracoid base and component alongthe body segment. Widening of the left AC joint with mild superiordeviation of the clavicle compatible with grade 3 AC separation. Reading Radiologist: Gonzales Adame us Lucy Cintron MD RAD XRAY Final Result * PF INSERTION OF CHEST TUBE (09/24/2024 4:32 PM SEO MANAGER) Alexandra Cheek MD - 09/24/2024 4:32 PM SEO MANAGER Bridgette Welsh MD 09/24/2024 4:43 PM Chest Tube Performed by: Bridgette Welsh MD Authorized by: Alexandra Alnais MD Consent: Consent obtained: Written Consent given by: Patient Risks, benefits, and alternatives were discussed: yes Risks discussed: Bleeding, pain, damage to surrounding structures and infection Elaine protocol: Procedure explained and questions answered to patient or proxy's satisfaction: yes Imaging studies available: yes Required blood products, implants, devices, and special equipment available: yes Site/side marked: yes Immediately prior to procedure, a time out was called: yes Patient identity confirmed: Arm band Pre-procedure details: Skin preparation: Chlorhexidine Sedation: Sedation type: Moderate sedation Anesthesia: Anesthesia method: Local infiltration Local anesthetic: Lidocaine 1% WITH epi Procedure details: Placement location: L lateral Scalpel size: 21. Tube size (Fr): 32 Dissection instrument: Anika clamp Ultrasound guidance: no Tension pneumothorax: no Tube connected to: Suction Drainage characteristics: Bloody Suture material: nylon. Dressing: Petrolatum-impregnated gauze and 4x4 sterile gauze Post-procedure details: Post-insertion x-ray findings: tube in good position Procedure completion: Tolerated well, no immediate complications us Alexandra Alanis MD PROCEDURES Final Resul t * ED EKG (12-LEAD) (09/24/2024 1:45 PM SEO MANAGER) 09/24/2024 1:45 PM SEO MANAGER Impressions [facility] CVIS EKG ORDERS - 09/24/2024 1:45 PM SEO MANAGER SINUS RHYTHM NORMAL ECG P-R Interval 195 ms QRS Interval 94 ms QT Interval 344 ms QTC Interval 399 ms P Animas 48 QRS Animas 61 T Wave Animas 2 Narrative Procedure Note Sierra Tenorio MD - 09/24/2024 IMPRESSION SINUS RHYTHM NORMAL ECG P-R Interval 195 ms QRS Interval 94 ms QT Interval 344 ms QTC Interval 399 ms P Animas 48 QRS Animas 61 T Wave Animas 2 Alok Suazo MD EKG Final Result [facility] CVIS EKG ORDERS * CT CHEST/ABD/PELVIS W/IV CONT (09/24/2024 1:35 PM SEO MANAGER) Anatomical Region Laterality Modality Chest Computed Tomogra phy 09/24/2024 1:21 PM SEO MANAGER Impressions 09/24/2024 2:09 PM SEO MANAGER Impression: 1.Bilateral small pneumothoraces, greater on the left. 2.Small left pleural effusion with adjacent left lower lobe atelectasis. 3.Subpleural contusions of the posterior left lung. 4.Left first through fifth rib fractures of varying displacement. Minimally displaced comminuted fracture involving the superior border of the left scapula extending into the base of the left coracoid. Low-grade left AC separation. 5.Left chest wall and muscular edema. I have personally reviewed the image(s) and initial interpretation, and I agree with the findings as documented by the resident/fellow. Reading Radiologist: Gonzales Aadme Reading Resident: Geoff Boalnos Narrative 09/24/2024 2:09 PM SEO MANAGER Comparison: Chest x-ray 09/24/2024. Outside imaging dictations from 09/21/2024 Indication: known bilateral PTX, eval for source of bleed in abdomen trauma Technique: Volumetric helical acquisition of CT images from the lung apices through the symphysis pubis with the administration of intravenous contrast. DOSE: Total DLP = 800.8 mGy.cm. Findings: Chest: Mediastinum: Subcentimeter right thyroid nodule. Unremarkable esophagus. Normal heart size. No pericardial effusions. Normal ascending aortic caliber. No suspicious thoracic lymph nodes. Lungs: Small left pleural effusion with adjacent atelectasis. Subpleural opacities in the posterior left lung favoring contusion. Left pleural thickening adjacent to a left fourth rib fracture (series 203, image 38). Trace amount of air occupying the left fourth rib space (series 203, image 41). Small bilateral left greater than right pneumothoraces. Abdomen/Pelvis: Liver: Unremarkable. No focal masses. Gallbladder and biliary tree: No calcified gallstones. No biliary ductal dilation. Pancreas: Unremarkable. Spleen: Unremarkable. Adrenals: Unremarkable. Kidneys, ureters and bladder: No hydronephrosis. Well-distended bladder. Pelvis: Phleboliths. Bowel: Normal caliber small bowel and large bowel. Unremarkable appendix. Vessels: Nonaneurysmal abdominal aorta. Lymph nodes: No enlarged lymph nodes. Peritoneum: No free air or fluid. Skeleton/Soft Tissues: Left mildly displaced posterior first, posterior second, posterior third, posterior fourth and lateral fourth, posterior fifth and posterolateral fifth rib fractures. Minimally displaced left scapular fracture. Comminuted fracture of the superior margins of left scapula involving the superior border and base of the coracoid process. Mild widening of the left AC joint with mild superior deviation of the clavicle. No acute osseous injury of the pelvis or proximal femurs. left chest wall edema and slight asymmetric enlargement of the left pectoral muscles. Procedure Note Gonzales Adame, DO - 09/24/2024 Comparison: Chest x-ray 09/24/2024. Outside imaging dictations from09/21/2024 Indication: known bilateral PTX, eval for source of bleed in abdomentrauma Technique: Volumetric helical acquisition of CT images from the lungapices through the symphysis pubis with the administration of intravenouscontrast. DOSE: Total DLP = 800.8 mGy.cm. Findings: Chest: Mediastinum: Subcentimeter right thyroid nodule. Unremarkable esophagus. Normal heartsize. No pericardial effusions. Normal ascending aortic caliber. Nosuspicious thoracic lymph nodes. Lungs: Small left pleural effusion with adjacent atelectasis. Subpleuralopacities in the posterior left lung favoring contusion. Left pleuralthickening adjacent to a left fourth rib fracture (series 203, image 38).Trace amount of air occupying the left fourth rib space (series 203, image41). Small bilateral left greater than right pneumothoraces. Abdomen/Pelvis: Liver: Unremarkable. No focal masses. Gallbladder and biliary tree: No calcified gallstones. No biliary ductaldilation. Pancreas: Unremarkable. Spleen: Unremarkable. Adrenals: Unremarkable. Kidneys, ureters and bladder: No hydronephrosis. Well-distended bladder. Pelvis: Phleboliths. Bowel: Normal caliber small bowel and large bowel. Unremarkable appendix. Vessels: Nonaneurysmal abdominal aorta. Lymph nodes: No enlarged lymph nodes. Peritoneum: No free air or fluid. Skeleton/Soft Tissues: Left mildly displaced posterior first, posteriorsecond, posterior third, posterior fourth and lateral fourth, posteriorfifth and posterolateral fifth rib fractures. Minimally displaced leftscapular fracture. Comminuted fracture of the superior margins of leftscapula involving the superior border and base of the coracoid process.Mild widening of the left AC joint with mild superior deviation of theclavicle. No acute osseous injury of the pelvis or proximal femurs. leftchest wall edema and slight asymmetric enlargement of the left pectoralmuscles. IMPRESSION Impression: 1.Bilateral small pneumothoraces, greater on the left. 2.Small left pleural effusion with adjacent left lower lobe atelectasis. 3.Subpleural contusions of the posterior left lung. 4.Left first through fifth rib fractures of varying displacement.Minimally displaced comminuted fracture involving the superior border ofthe left scapula extending into the base of the left coracoid. Low-gradeleft AC separation. 5.Left chest wall and muscular edema. I have personally reviewed the image(s) and initial interpretation, and Iagree with the findings as documented by the resident/fellow. Reading Radiologist: Gonzales Adame Reading Resident: Geoff Bolanos Alok Suazo MD RAD CT BODY Final Result * PRECAUTIONARY TUBE (09/24/2024 12:56 PM SEO MANAGER) Prec Tube Precautionary Blood Bank Specimen Received. [facility] Blood 09/24/2024 12:5 6 PM SEO MANAGER 09/24/2024 1:03 PM SEO MANAGER Alok Suazo MD LAB TRANSFUSION SERVICES Final R esult [facility] [address] [address] * ED INR (09/24/2024 12:55 PM SEO MANAGER) [facility] ED INR 1.0 0.8 - 1.1 [facility] Comment: Warfarin Therapeutic Range: Standard Intensity: 2.0 - 3.0 High Intensity: 2.5 - 3.5 This is a rapid INR screening test which uses whole blood; results may infrequently differ from plasma INR results. If medication adjustments/dosing are required a PT/INR test ([id number]) should be ordered and performed in the main laboratory. Blood 09/24/2024 12:5 5 PM SEO MANAGER 09/24/2024 1:00 PM SEO MANAGER us Alok Suazo MD LABORATORY Final Result Performing Organization Address City/[facility]/ZIP Co de Phone Number [facility] [address] [address] * EXTRA TUBE - SST (09/24/2024 12:55 PM SEO MANAGER) [facility] SST TUBE Stored [facility] Comment:SST tubes (Serum Sep arator) are stored in the lab for 3 days from the collection date. Blood 09/24/2024 12:5 5 PM SEO MANAGER 09/24/2024 1:01 PM SEO MANAGER us Alok Suazo MD LABORATORY Final Result [facility] [address] [address] * HS TROPONIN (09/24/2024 12:55 PM SEO MANAGER) [facility] HS Troponin I <3 <=35 ng/L [facility] Blood 09/24/2024 12:5 5 PM SEO MANAGER 09/24/2024 1:00 PM SEO MANAGER Narrative [facility] - 09/24/2024 1:23 PM SEO MANAGER First Occurrence of the Troponin order is to be drawn Stat by Nursing staff on the unit. us Alok Suazo MD LABORATORY Final Result Performing Organization Address City/[facility]/ZIP Co de Phone Number [facility] [address] [address] * (ABNORMAL) PANEL HEPATIC FUNCTION (09/24/2024 12:55 PM SEO MANAGER) Pathologist [facility] Total Protein 6.8 6.4 - 8.3 g/dL [facility] Albumin 4.2 3.8 - 5.1 g/dL [facility] Bili Total 0.6 <=1.2 mg/dL [facility] Bili Direct <0.2 <=0.3 mg/dL [facility] Alk Phos 41 40 - 129 IU/L [facility] Comment:No reference range e stablished for patients <18 years old. ALT (SGPT) 40 <=41 IU/L [facility] AST(SGOT) 52(H) 5 - 40 IU/L [facility] Blood 09/24/2024 12:5 5 PM SEO MANAGER 09/24/2024 1:21 PM SEO MANAGER Alok Suazo MD LABORATORY Final Result Performing Organization Address [facility]/ZIP Co de Phone Number [facility] [address] [address] * LACTATE (LACTIC ACID) (09/24/2024 12:55 PM SEO MANAGER) [facility] Lactate 0.8 0.7 - 2.1 mmol/L [facility] Blood 09/24/2024 12:5 5 PM SEO MANAGER 09/24/2024 1:01 PM SEO MANAGER Narrative [facility] - 09/24/2024 1:02 PM SEO MANAGER Send specimen on ice! us Alok Suazo MD LABORATORY Final Result [facility] [address] [address] * BLOOD GASES (09/24/2024 12:55 PM SEO MANAGER) Pathologist [facility] PH Paco 7.41 7.32 - 7.42 [facility] PCO2 Paco 43 41 - 51 mmHG [facility] PO2 Paco 27 25 - 40 mmHG [facility] Bicarb Paco 27 24 - 28 mEq/L [facility] O2 Sat Paco 46 % [facility] Base Exc Paco 1.8 -10.0 - 2.0 mmol/L [facility] Blood Venous 09/24/2024 12:5 5 PM SEO MANAGER 09/24/2024 1:02 PM SEO MANAGER us Alok Suazo MD LABORATORY Final Result Performing Organization Address City/[facility]/ZIP Co de Phone Number [address] [address] * (ABNORMAL) FIBRINOGEN (09/24/2024 12:55 PM SEO MANAGER) Fibrinogen 417(H) 200 - 400 mg/dL [facility] Blood 09/24/2024 12:5 5 PM SEO MANAGER 09/24/2024 1:20 PM SEO MANAGER us Alok Suazo MD LABORATORY Final Result Performing Organization Address City/[facility] Co de Phone Number [facility] [address] [address] * ETHANOL (ETOH) LEVEL, BLOOD (09/24/2024 12:55 PM SEO MANAGER) Ethanol Negative Negative g/dL [facility] Blood 09/24/2024 12:5 5 PM SEO MANAGER 09/24/2024 1:20 PM SEO MANAGER us Alok Suazo MD LABORATORY Final Result Performing Organization Address City/[facility] Co de Phone Number [address] [address] * PTT (APTT) (09/24/2024 12:55 PM SEO MANAGER) APTT 25.4 25.0 - 37.0 sec [facility] Blood 09/24/2024 12:5 5 PM SEO MANAGER 09/24/2024 1:20 PM SEO MANAGER us Alok Suazo MD LABORATORY Final Result [facility] [address] [place] [id number] * (ABNORMAL) ED US CRITICAL CARE (09/24/2024 12:47 PM SEO MANAGER) Anatomical Region Laterality Modality Ultrasound Narrative 09/24/2024 1:56 PM SEO MANAGER Study: Bedside e-FAST (Extended) Exam Indication: Trauma. Concern for Pneumothorax, Intraperitoneal/Pericardial/Intrapelvic Free Fluid Window: Standard 4 view window. Findings: No free intraperitoneal fluid. No pericardial effusion. Minimal apical Sliding signs bilaterally in single window (Pt with known PTX bilaterally on CT). Impression: Negative e FAST exam. Initial result viewed and interpreted contemporaneously with the study being performed. Performed by: Angeles Suazo MD Resulted Date & Time: 09/24/2024 13:55 Final read language provided by and entered by Alok Suazo MD us Alok Suazo MD RAD ED ULT Final Result * CT CHEST OUTSIDE FILMS (09/24/2024 9:46 AM SEO MANAGER) Narrative User, [id number] - 09/26/2024 6:12 AM SEO MANAGER Outside Film Only us Outside Provider RAD OUTSIDE FILMS Final Result * CT CHEST/ABDOMEN/PELVIS OUTSIDE FILMS (09/21/2024 9:01 AM SEO MANAGER) Narrative User, [id number] - 09/26/2024 6:13 AM SEO MANAGER Outside Film Only us Outside Provider RAD OUTSIDE FILMS Final Result from Last 3 Months Advance Directives For more information, please contact: [phone] * Full Code (Latest Code Status on File) Date Activated Date Inactivated Comments 09/25/2024 9:32 AM 09/28/2024 8:46 PM Question Answer Comments Does the Patient have prefer ences regarding life sustaining measures (these options only apply when the patient has a pulse): No Discussed Code Status With Whom? Not discussed
--- OUTSIDE RECORDS SUMMARY | 2024-09-30 23:52 | XMS_ITS | Encounter Summary ---
Author Organization [facility] Address [address] [place] [address] Phone Care Team Providers Care Strategic Communications Specialist Name Role Phone Unavailable Primary Care Provider Unavailabl e Encounter Details Date Type Department Care Team (Late st Contact Info) Description 09/26/2024 Orders Only [facility] Film Room [facility] Radiology Department SONYA [address] [facility] [id number] Provider, Outside [place] [address] Referral of patient (Primary Dx) Social History Tobacco Use Types [...] on file Legal Sex Male 11:38 AM BAG WASHER Gender Identity Not on file Sexual Orientation Not on file documented as of this encounter Plan of Treatment Upcoming Encounters Date Type Department Care Team (Late st Contact Info) Description 10/10/2024 9:30 AM BAG WASHER [facility] [address] [place] [address] Shaila, Gen Surg Trauma [address] [place] [phone] Scheduled Discharge Disposition: Discharged to home or self care 11/03/2024 1:00 PM BAG WASHER Office [facility] [address] [place] [address] Talha Anderson MD [address] [place] [phone] Scheduled Discharge Disposition: Discharged to home or self care documented as of this encounter Results * CT CHEST OUTSIDE FILMS (09/24/2024 9:46 AM BAG WASHER) Narrative User, [id number] - 09/26/2024 6:12 AM BAG WASHER Outside Film Only us Outside Provider RAD OUTSIDE FILMS Final Result * CT CHEST/ABDOMEN/PELVIS OUTSIDE FILMS (09/21/2024 9:01 AM BAG WASHER) Narrative User, [id number] - 09/26/2024 6:13 AM BAG WASHER Outside Film Only us Outside Provider RAD OUTSIDE FILMS Final Result documented in this encounter Visit Diagnoses Diagnosis Referral of patient- Primary Referral of patient without examination or treatment documented in this encounter
--- OUTSIDE RECORDS SUMMARY | 2024-09-30 23:52 | XMS_ITS | Clinical Summary ---
Author Organization [facility] Address [address] [place] [address]. 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 Last update 04/06/09.[employer] Allergies No known active allergies Medications * Be aware that medications may not be up to date as of this document. Always verify current medications with patient. acetaminophen (TYLENOL) 325 mg oral tablet Take 2 tablets (650 mg) by mouth every 4 hours. 100 each 09/28/2024 4:04 PM COGNOS LEAD 09/28/2024 Active oxyCODONE (ROXICODONE) 5 mg oral tablet Take 1-2 tablets (5-10 mg) by mouth every 4 hours as needed for Pain. 24 tablet 09/28/2024 4:04 PM COGNOS LEAD 09/28/2024 Active polyethylene glycol 3350 (MIRALAX/GLUCOL AX) 17 gm/scoop oral powder Mix 1 capful (17 gm) with full glass of water and drink once every day as directed. 238 g 09/28/2024 4:04 PM COGNOS LEAD 09/29/2024 Active sennosides-docu sate sodium (STOOL SOFTENER/LAXATI VE) 8.6-50 mg oral tablet Take 1 tablet by mouth twice daily. 30 each 09/28/2024 4:04 PM COGNOS LEAD 09/28/2024 Active cyclobenzaprine (FLEXERIL) 10 mg oral Take 1 tablet (10 mg) by mouth 3 times daily. 24 tablet 09/28/2024 4:04 PM COGNOS LEAD 09/28/2024 Active Active Problems Problem Noted Date Diagnosed Date Trauma 09/24/2024 Traumatic pneumothorax, initial encounter 2023 Encounters Date Type Department Care Team Description 09/26/2024 Orders Only Unspecified Department [place] Unknown, Provider 09/26/2024 Orders Only [facility] Film Room [facility] Radiology Department SONYA [address] [place] [address] Provider, Outside Referral of patient (Primary Dx) 09/26/2024 Orders Only Unspecified Department [place] Unknown, Provider 09/25/2024 Orders Only Unspecified Department [place] Unknown, Provider 09/24/2024 12:47 PM COGNOS LEAD - 09/28/2024 5:41 PM COGNOS LEAD Hospital Encounter [facility] Surgery/Trauma/Neur o [address] [place] [address] Alok Suazo MD Payne, MD Alek Weiss, Ovidio Christine MD Trauma Discharge Disposition: Discharged to home or self care 09/24/2024 Travel from Last 3 Months Social History Tobacco Use Types Packs/Day Years [...] on file Legal Sex Male 11:38 AM COGNOS LEAD Gender Identity Not on file Sexual Orientation Not on file Last Filed Vital Signs Vital Sign Reading Time Taken Comments Blood Pressure 150/84 09/28/2024 3:39 PM COGNOS LEAD Pulse 91 09/28/2024 3:39 PM COGNOS LEAD Temperature 36.1 C (97 F) 09/28/2024 3:39 PM COGNOS LEAD Respiratory Rate 16 09/28/2024 3:39 PM COGNOS LEAD Oxygen Saturation 99% 09/28/2024 3:39 PM COGNOS LEAD Inhaled Oxygen Concentration - - Weight 79 kg (174 lb 2.6 oz) 09/24/2024 12:58 PM COGNOS LEAD Height - - Body Mass Index - - Plan of Treatment Upcoming Encounters Date Type Department Care Team (Late st Contact Info) Description 10/10/2024 9:30 AM COGNOS LEAD [facility] [address] [place] [phone] Shaila, Gen Surg Trauma [address] [place] [phone] Scheduled Discharge Disposition: Discharged to home or self care 11/03/2024 1:00 PM COGNOS LEAD [facility] [address] [place] [id number] Talha Anderson MD [address] [address] Scheduled Discharge Disposition: Discharged to home or self care Health Maintenance Due Date Last Done Comments Dental Oral Exam 1999 Dental Prophylaxis 1999 Dental X-Ray: Bitewings 1999 Periodontal Maintenance 2013 HIV Screening 2014 PREVENTATIVE VISIT 2017 HEALTH MAINTENANCE PROTOCOL 2018 Imm: COVID-19 (2023- season) 2024 Imm: Flu (#1) 07/03/2024 09/20/2015, 09/02, 09/02/2006, Additional history exists Imm: DTaP/Tdap (9 - Td or Tdap) 09/21/2034 09/21/2024, 03/18/2018, 06/18/2012, Additional history exists Imm: Zoster (1 of 2) 2049 Imm: Pneumonia Peds or At-Risk less than 65 years Aged Out 01/07/2001 No longer marcelino gible based on patient's age to complete this topic Imm: Hib Completed 07/10/2003, 06/2001, 01/07/2001, Additional history exists Imm: HepB Completed 02/26/2006, 06/2001, 01/07/2001, Additional history exists Imm: Meningitis Aged Out 06/18/2012 No longer el igible based on patient's age to complete this topic Imm: HepA Completed 09/20/2013, 06/18/2012 Imm: HPV Completed 02/27/2015, 09/02, 06/18/2012 Procedures Procedure Name Priority Date/Time Associated Diagnosis Comments XR CHEST 1 VIEW AP OR PA* Timed 09/28/2024 4:00 PM COGNOS LEAD PC LAB CBC/PLT Routine 09/28/2024 7:10 AM COGNOS LEAD PANEL BASIC METABOLIC (BMP) Routine 09/28/2024 7:09 AM COGNOS LEAD XR CHEST 1 VIEW AP OR PA* Timed 09/28/2024 6:11 AM COGNOS LEAD PANEL BASIC METABOLIC (BMP) Routine 09/27/2024 9:33 AM COGNOS LEAD TC LAB BLOOD DRAW BY VENIPUNCTURE Routine 09/27/2024 9:33 AM COGNOS LEAD XR CHEST 1 VIEW AP OR PA* Routine 09/27/2024 6:11 AM COGNOS LEAD XR CHEST 1 VIEW AP OR PA* Timed 09/26/2024 11:42 AM COGNOS LEAD TELEMETRY STRIPS 09/26/2024 7:25 AM COGNOS LEAD XR CHEST 1 VIEW AP OR PA* Timed 09/26/2024 6:28 AM COGNOS LEAD PHOSPHORUS Routine 09/26/2024 5:51 AM COGNOS LEAD MAGNESIUM Routine 09/26/2024 5:51 AM COGNOS LEAD PANEL BASIC METABOLIC (BMP) Routine 09/26/2024 5:51 AM COGNOS LEAD TC LAB BLOOD DRAW BY VENIPUNCTURE Routine 09/26/2024 5:51 AM COGNOS LEAD TELEMETRY STRIPS 09/26/2024 4:19 AM COGNOS LEAD TELEMETRY STRIPS 09/25/2024 8:33 PM COGNOS LEAD HEMOGLOBIN Timed 09/25/2024 6:04 PM COGNOS LEAD LUNG AIRWAY CLEARANCE EXPANSION PROTOCOL Routine 09/25/2024 4:22 PM COGNOS LEAD XR CHEST 1 VIEW AP OR PA* Routine 09/25/2024 12:[address] OUTSIDE READ SPINE CERVICAL/NECK Routine 09/25/2024 9:[address] OUTSIDE READ HEAD/FACIAL BONES Routine 09/25/2024 9:[address] OUTSIDE READ SPINE THORACIC/LUMBAR Routine 09/25/2024 9:[address] OUTSIDE READ SPINE CERVICAL/NECK Routine 09/25/2024 9:[address] OUTSIDE READ HEAD/FACIAL BONES Routine 09/25/2024 9:24 AM COGNOS LEAD PC ELECTROLYTES PANEL STAT 09/25/2024 7:35 AM COGNOS LEAD PC LAB CBC W/DIFF & PLT STAT 09/25/2024 7:35 AM COGNOS LEAD TC LAB ER STAT TOTAL HGB STAT 09/24/2024 11:22 PM COGNOS LEAD TC LAB ER STAT TOTAL HGB STAT 09/24/2024 7:55 PM COGNOS LEAD XR SHOULDER LT 2/3V AP/GRASH/Y* Routine 09/24/2024 5:31 PM COGNOS LEAD SEDATION Routine 09/24/2024 4:40 PM COGNOS LEAD XR CHEST 1 VIEW AP OR PA* STAT 09/24/2024 4:34 PM COGNOS LEAD PF INSERTION OF CHEST TUBE Routine 09/24/2024 4:32 PM COGNOS LEAD ED EKG (12-LEAD) Routine 09/24/2024 1:[address] CHEST/ABD/PELVIS W/IV CONT STAT 09/24/2024 1:35 PM COGNOS LEAD XR CHEST 1 VIEW AP OR PA* STAT 09/24/2024 1:01 PM COGNOS LEAD PRECAUTIONARY TUBE STAT 09/24/2024 12 :56 PM COGNOS LEAD EXTRA TUBE - SST Routine 09/24/2024 12:5 5 PM COGNOS LEAD PC TROPONIN QUANTITATIVE STAT 09/24/2024 12:55 PM COGNOS LEAD ETHANOL (ETOH) LEVEL, BLOOD STAT 09/24/2024 12:55 PM COGNOS LEAD PC LAB PTT STAT 09/24/2024 12:55 PM COGNOS LEAD PC LAB ED INR STAT 09/24/2024 12:55 PM COGNOS LEAD PC LACTATE (LACTIC ACID) STAT 09/24/2024 12:55 PM COGNOS LEAD FIBRINOGEN STAT 09/24/2024 12:55 PM COGNOS LEAD PANEL HEPATIC FUNCTION STAT 12:55 PM COGNOS LEAD TC LAB ER STAT TOTAL HGB STAT 09/24/2024 12:55 PM COGNOS LEAD PC IONIZED,CALCIUM STAT 09/24/2024 12 :55 PM COGNOS LEAD PC LAB CBC W/DIFF & PLT STAT 09/24/2024 12:55 PM COGNOS LEAD PC GASES,BLOOD,ANY COMB OF PH,PCD2,PO2,CO2,HCO2 STAT 09/24/2024 12:55 PM COGNOS LEAD ED US CRITICAL CARE STAT 09/24/2024 1 2:[address] CHEST OUTSIDE FILMS Routine 9:46 AM COGNOS LEAD Referral of patient CT CHEST/ABDOMEN/PELVIS OUTSIDE FILMS Routine 09/21/2024 9:01 AM COGNOS LEAD Referral of patient from Last 3 Months Results * XR CHEST 1 VIEW AP OR PA* (09/28/2024 4:00 PM COGNOS LEAD) Only the most recent of8 resultswithin the time period is included. Anatomical Region Laterality Modality Chest Computed Radiogr aphy 09/28/2024 4:02 PM COGNOS LEAD Impressions 09/28/2024 4:02 PM COGNOS LEAD Impression: Small left apical pneumothorax with chest tube removed. Reading Radiologist: Freddy Flores 09/28/2024 4:02 PM COGNOS LEAD Technique: XR CHEST 1 VIEW AP OR [...] chest tube removed. Reading Radiologist: Freddy Flores us Gabby Kaur MD RAD XRAY Final Result * (ABNORMAL) CBC WITH PLATELET (09/28/2024 7:10 AM COGNOS LEAD) Only the most recent of3 resultswithin the time period is included. WBC 9.05 4.00 - 10.00 k/cmm [facility] RBC 2.99(L) 4.60 - 6.00 m/cmm [facility] Hgb 9.0(L) 13.1 - 17.5 g/dL [facility] Hematocrit 27.5(L) 40.0 - 51.0 % [facility] MCV 92.0 80.0 - 100.0 fL [facility] MCH 30.1 25.0 - 32.0 pg [facility] MCHC 32.7 31.0 - 36.0 g/dL [facility] RDW 12.3 11.5 - 14.5 % [facility] Plt 337 150 - 400 k/cmm [facility] MPV 9.0 6.5 - 12.5 fL [facility] Blood 09/28/2024 7:10 AM COGNOS LEAD 09/28/2024 7:19 AM COGNOS LEAD us Krista Avila BOOKER, CLOTH GRADER LABORATORY Fin al Result [facility] [address] [address] * (ABNORMAL) PANEL BASIC METABOLIC (BMP) (09/28/2024 7:09 AM COGNOS LEAD) Only the most recent of3 resultswithin the time period is included. CO2 25 22 - 30 mmol/L [facility] Glucose 99 70 - 100 mg/dL [facility] BUN 9 6 - 20 mg/dL [facility] Creatinine 0.68(L) 0.70 - 1.25 mg/dL [facility] Calcium 9.1 8.6 - 10.0 mg/dL [facility] Sodium 136 135 - 148 mmol/L [facility] Potassium 4.2 3.5 - 5.3 mmol/L [facility] Chloride 101 92 - 108 mmol/L [facility] eGFR (2020 CKD-EPI) >120 >=60 ml/min/1.7 3m2 [facility] Comment: The estimated glomerular filtration rate (eGFR) was calculated using the CKD-EPI 2020 creatinine equation, which does not include race as a factor. This equation is validated in individuals 18 years of age and older, and eGFR is normalized to a body surface area of 1.73m^2. AnGap 10 8 - 16 mmol/L [facility] Blood 09/28/2024 7:09 AM COGNOS LEAD 09/28/2024 7:19 AM COGNOS LEAD us Krista Avila APRN, CL[employer] LABORATORY Jose guadalupe Result - Final [facility] [address] [address] * TELEMETRY STRIPS (09/26/2024 7:25 AM COGNOS LEAD) Only the most recent of3 resultswithin the time period is included. Narrative 09/26/2024 7:25 AM COGNOS LEAD Ordered by an unspecified provider. us Provider Unknown RAD ECHO Final Result * PHOSPHORUS (09/26/2024 5:51 AM COGNOS LEAD) Phosphorus 3.7 2.5 - 4.5 mg/dL [facility] Blood 09/26/2024 5:51 AM COGNOS LEAD 09/26/2024 6:33 AM COGNOS LEAD Gabby Kaur MD LABORATORY Final Result [facility] [address] [address] * MAGNESIUM (09/26/2024 5:51 AM COGNOS LEAD) Magnesium 2.4 1.6 - 2.6 mg/dL [facility] Blood 09/26/2024 5:51 AM COGNOS LEAD 09/26/2024 6:33 AM COGNOS LEAD Gabby Kaur MD LABORATORY Final Result Performing Organization Address City/[facility] Co de Phone Number [facility] [address] [address] * (ABNORMAL) HEMOGLOBIN (09/25/2024 6:04 PM COGNOS LEAD) Hgb 9.5(L) 13.1 - 17.5 g/dL [facility] Blood 09/25/2024 6:04 PM COGNOS LEAD 09/25/2024 6:11 PM COGNOS LEAD Krista Avila APRN, [place] LABORATORY Fin al Result Performing Organization Address City/[facility] Co de Phone Number [facility] [address] [address] * CT OUTSIDE READ SPINE CERVICAL/NECK (09/25/2024 9:37 AM COGNOS LEAD) Only the most recent of2 resultswithin the time period is included. Anatomical Region Laterality Modality Cervical Spine Computed Tomogra phy 09/25/2024 2:16 PM COGNOS LEAD Impressions 09/25/2024 2:23 PM COGNOS LEAD Impression: 1.Neck CT angiogram demonstrates no traumatic injury or significant stenosis of the major cervical arteries. 2.There is a 2 mm saccular outpouching arising from proximal A2 segment of the left anterior cerebral artery, likely representing a small aneurysm. Reading Radiologist: Chelsie Juarez Narrative 09/25/2024 2:23 PM COGNOS LEAD Indication: Patient transferred from [facility] due to Trauma. No initial report accompanied the patient and/or Dr. KRISTA AVILA requested an interpretation by me. Technique: CT scan of the neck angiogram done on 09/21/2024 with IV contrast. 3 mm axial, sagittal and coronal reconstructions reviewed in soft tissue and bone windows, per the local institution's scanning protocols, which may differ from the [facility] trauma protocols. Findings: CT Angiogram Neck: Aortic [...] MD - 09/25/2024 Indication: Patient transferred from [facility] due to Trauma.No initial report accompanied the patient and/or Dr. KRISTA Levyequested an interpretation by me. Technique: CT scan of the neck angiogram done on 09/21/2024 with IVcontrast. 3 mm axial, sagittal and coronal reconstructions reviewed insoft tissue and bone windows, per the local institution's scanningprotocols, which may differ from the [facility] trauma protocols. Findings: CT Angiogram Neck: Aortic [...] a small aneurysm. Reading Radiologist: Chelsie Juarez us Krista Avila BOOKER, CLOTH GRADER RAD CT NEURO Fin al Result * CT OUTSIDE READ HEAD/FACIAL BONES (09/25/2024 9:29 AM COGNOS LEAD) Only the most recent of2 resultswithin the time period is included. Anatomical Region Laterality Modality Skull Computed Tomogra phy 09/25/2024 2:13 PM COGNOS LEAD Impressions 09/25/2024 2:16 PM COGNOS LEAD Impression: No acute facial bone fractures. Reading Radiologist: Chelsie Juarez Narrative 09/25/2024 2:16 PM COGNOS LEAD Indication: Patient transferred from [facility] due to Trauma. No initial report accompanied the patient and/or Dr. KRISTA AVILA requested an interpretation by me. Technique: CT scan of the facial bone done on 09/21/2024 without IV contrast. 3 mm axial and coronal reconstructions reviewed in soft tissue and bone windows, per the local institution's scanning protocols, which may differ from the [facility] trauma protocols. Findings: There is no significant [...] MD - 09/25/2024 Indication: Patient transferred from [facility] due to Trauma.No initial report accompanied the patient and/or Dr. KRISTA LEENrequested an interpretation by me. Technique: CT scan of the facial bone done on 09/21/2024 without IVcontrast. 3 mm axial and coronal reconstructions reviewed in soft tissueand bone windows, per the local institution's scanning protocols, whichmay differ from the [facility] trauma protocols. Findings: There is no significant [...] Reading Radiologist: Chelsie Juarez us Krista Avila BOOKER, CLOTH GRADER RAD CT NEURO Fin al Result * CT OUTSIDE READ SPINE THORACIC/LUMBAR (09/25/2024 9:28 AM COGNOS LEAD) Anatomical Region Laterality Modality Lumbar Spine, Thoracic Spine Com puted Tomography 09/25/2024 2:23 PM COGNOS LEAD Impressions 09/25/2024 2:30 PM COGNOS LEAD Impression: 1. No evidence for acute fracture/dislocation of the thoracic spine. 2. No evidence for acute fracture/dislocation of the lumbar spine. 3. Acute left first through fifth rib fractures. Bilateral pneumothorax. Left pulmonary contusion and hemothorax. Reading Radiologist: Chelsie Juarez Narrative 09/25/2024 2:30 PM COGNOS LEAD Indication: Patient transferred from [facility] due to Trauma. No initial report accompanied the patient and/or Dr. KRISTA AVILA requested an interpretation by me. Technique: CT scan of the thoracic/lumbar spine done on 09/21/2024 IV contrast. 3 mm axial, sagittal and coronal reconstructions reviewed in soft tissue and bone windows, per the local institution's scanning protocols, which may differ from the [facility] trauma protocols. Findings: Thoracic spine: There is [...] MD - 09/25/2024 Indication: Patient transferred from [facility] due to Trauma.No initial report accompanied the patient and/or Dr. KRISTA Levyequested an interpretation by me. Technique: CT scan of the thoracic/lumbar spine done on 09/21/2024 IVcontrast. 3 mm axial, sagittal and coronal reconstructions reviewed insoft tissue and bone windows, per the local institution's scanningprotocols, which may differ from the [facility] trauma protocols. Findings: Thoracic spine: There is [...] Radiologist: Chelsie Juarez us Krista Avila APRN, CLOTH GRADER RAD CT NEURO Fin al Result * (ABNORMAL) ED CHEMISTRY LABS(NA,K,CL,CO2,GLU,CREAT,CA-IONIZED,ANION GAP) (09/25/2024 7:35 AM COGNOS LEAD) Only the most recent of2 resultswithin the time period is included. Sodium 134(L) 135 - 148 mmol/L [facility] Chloride 99 92 - 108 mmol/L [facility] AnGap 7(L) 8 - 16 mmol/L [facility] Glucose 102(H) 70 - 100 mg/dL [facility] ICA, Actual 4.21(L) 4.40 - 5.20 mg/dL [facility] ICA, pH Corrected 4.34(L) 4.40 - 5.20 mg/dL [facility] Creatinine 0.81 0.70 - 1.25 mg/dL [facility] BICARB 28(H) 22 - 26 mEq/L [facility] eGFR (2020 CKD-EPI) >120 >=60 ml/min/1.7 3m2 [facility] Comment: The estimated glomerular filtration rate (eGFR) was calculated using the CKD-EPI 2020 creatinine equation, which does not include race as a factor. This equation is validated in individuals 18 years of age and older, and eGFR is normalized to a body surface area of 1.73m^2. Potassium na 3.5 - 5.3 mmol/L [facility] Comment:Potassium = 4.2. Res ult suspect due to hemolysis. Blood 09/25/2024 7:35 AM COGNOS LEAD 09/25/2024 7:42 AM COGNOS LEAD us Alok Suazo MD LABORATORY Edited Result - Final [facility] [address] [address] * (ABNORMAL) CBC WITH PLTS/AUTO DIFF (09/25/2024 7:35 AM COGNOS LEAD) Only the most recent of2 resultswithin the time period is included. WBC 7.12 4.00 - 10.00 k/cmm [facility] RBC 3.19(L) 4.60 - 6.00 m/cmm [facility] Hgb 9.8(L) 13.1 - 17.5 g/dL [facility] Hematocrit 28.5(L) 40.0 - 51.0 % [facility] MCV 89.3 80.0 - 100.0 fL [facility] MCH 30.7 25.0 - 32.0 pg [facility] MCHC 34.4 31.0 - 36.0 g/dL [facility] RDW 11.8 11.5 - 14.5 % [facility] Plt 217 150 - 400 k/cmm [facility] MPV 11.0 6.5 - 12.5 fL [facility] Automated Abs Neutrophil 5.18 1.70 - 6.50 k/cmm [facility] Comment:Preliminary ANC, Fin al Result to Follow Abs Immature Granulocyte 0.03 0.00 - 0.09 k/cmm [facility] Comment:The Immature Granulo cyte Absolute count contains metamyelocytes and myelocytes. Abs Neutrophil 5.18 1.70 - 6.50 k/cmm [facility] Abs Lymphocyte 0.71(L) 0.80 - 4.00 k/cmm [facility] Abs Monocyte 0.79 0.20 - 1.00 k/cmm [facility] Abs Eosinophil 0.36 0.00 - 0.60 k/cmm [facility] Abs Basophil 0.05 0.00 - 0.20 k/cmm [facility] Blood 09/25/2024 7:35 AM COGNOS LEAD 09/25/2024 7:56 AM COGNOS LEAD us Alok Suazo MD LABORATORY Edited Result - Final [facility] [address] [place] [id number] * (ABNORMAL) ED HEMOGLOBIN TOTAL (ED ONLY) (09/24/2024 11:22 PM COGNOS LEAD) Only the most recent of3 resultswithin the time period is included. Hgb 9.7(L) 13.1 - 17.5 g/dL [facility] Blood 09/24/2024 11:2 2 PM COGNOS LEAD 09/24/2024 11:28 PM COGNOS LEAD us Alok Suazo MD LABORATORY Final Result [facility] [address] [address] * XR SHOULDER LT 2/3V AP/GRASH/Y* (09/24/2024 5:31 PM COGNOS LEAD) Anatomical Region Laterality Modality Upper Arm Computed Radiogr aphy 09/24/2024 5:36 PM COGNOS LEAD Impressions 09/24/2024 5:39 PM COGNOS LEAD Impression: Mildly displaced comminuted fracture involving the superior border of the scapula extending into the coracoid base and component along the body segment. Widening of the left AC joint with mild superior deviation of the clavicle compatible with grade 3 AC separation. Reading Radiologist: Gonzales Adame Narrative 09/24/2024 5:39 PM COGNOS LEAD Technique: XR SHOULDER LT 2/3V AP/GRASH/Y* Indication: [...] INSERTION OF CHEST TUBE (09/24/2024 4:32 PM COGNOS LEAD) Narrative Alexandra Alanis MD - 09/24/2024 4:32 PM COGNOS LEAD Bridgette Welsh MD 09/24/2024 4:43 PM Chest Tube Performed by: Bridgette Welsh MD Authorized by: Alexandra Alanis MD Consent: Consent obtained: Written Consent given by: Patient Risks, benefits, and alternatives were discussed: yes Risks discussed: Bleeding, pain, damage to surrounding structures and infection [place] protocol: Procedure explained and questions answered to [...] * ED EKG (12-LEAD) (09/24/2024 1:45 PM COGNOS LEAD) 09/24/2024 1:45 PM COGNOS LEAD Impressions [facility] CVIS EKG ORDERS - 09/24/2024 1:45 PM COGNOS LEAD SINUS RHYTHM NORMAL ECG P-R Interval 195 ms QRS Interval 94 ms QT Interval 344 ms QTC Interval 399 ms P [place] 48 QRS [place] 61 T Wave [place] 2 Narrative Procedure Note Sierra Tenorio MD - 09/24/2024 IMPRESSION SINUS RHYTHM NORMAL ECG P-R Interval 195 ms QRS Interval 94 ms QT Interval 344 ms QTC Interval 399 ms P [place] 48 QRS [place] 61 T Wave [place] 2 Alok Suazo MD EKG Final Result [facility] CVIS EKG ORDERS * CT CHEST/ABD/PELVIS W/IV CONT (09/24/2024 1:35 PM COGNOS LEAD) Anatomical Region Laterality Modality Chest Computed Tomogra phy 09/24/2024 1:21 PM COGNOS LEAD Impressions 09/24/2024 2:09 PM COGNOS LEAD Impression: 1.Bilateral small pneumothoraces, greater on the [...] Radiologist: Gonzales Adame Reading Resident: Geoff Bolanos Narrative 09/24/2024 2:09 PM COGNOS LEAD Comparison: Chest x-ray 09/24/2024. Outside imaging dictations [...] Result * PRECAUTIONARY TUBE (09/24/2024 12:56 PM COGNOS LEAD) Pathologist [facility] Prec Tube Precautionary Blood Bank Specimen Received. [facility] Blood 09/24/2024 12:5 6 PM COGNOS LEAD 09/24/2024 1:03 PM COGNOS LEAD Alok Suazo MD LAB TRANSFUSION SERVICES Final R esult [facility] [address] [address] * ED INR (09/24/2024 12:55 PM COGNOS LEAD) Pathologist [facility] ED INR 1.0 0.8 - 1.1 [facility] Comment: Warfarin Therapeutic Range: Standard Intensity: 2.0 - 3.0 High Intensity: 2.5 - 3.5 This is a rapid INR screening test which uses whole blood; results may infrequently differ from plasma INR results. If medication adjustments/dosing are required a PT/INR test ([id number]) should be ordered and performed in the main laboratory. Blood 09/24/2024 12:5 5 PM COGNOS LEAD 09/24/2024 1:00 PM COGNOS LEAD us Alok Suazo MD LABORATORY Final Result [facility] [address] [address] * EXTRA TUBE - SST (09/24/2024 12:55 PM COGNOS LEAD) Pathologist [facility] SST TUBE Stored [facility] Comment:SST tubes (Serum Sep arator) are stored in the lab for 3 days from the collection date. Blood 09/24/2024 12:5 5 PM COGNOS LEAD 09/24/2024 1:01 PM COGNOS LEAD us Alok Suazo MD LABORATORY Final Result Performing Organization Address [facility] Co de Phone Number [facility] [address] [address] * HS TROPONIN (09/24/2024 12:55 PM COGNOS LEAD) [facility] HS Troponin I <3 <=35 ng/L [facility] Blood 09/24/2024 12:5 5 PM COGNOS LEAD 09/24/2024 1:00 PM COGNOS LEAD Narrative [facility] - 09/24/2024 1:23 PM COGNOS LEAD First Occurrence of the Troponin order is to be drawn Stat by Nursing staff on the unit. us Alok Suazo MD LABORATORY Final Result Performing Organization Address City/[facility] Co de Phone Number [facility] [address] [address] * (ABNORMAL) PANEL HEPATIC FUNCTION (09/24/2024 12:55 PM COGNOS LEAD) [facility] Total Protein 6.8 6.4 - 8.3 g/dL [facility] Albumin 4.2 3.8 - 5.1 g/dL [facility] Bili Total 0.6 <=1.2 mg/dL [facility] Bili Direct <0.2 <=0.3 mg/dL [facility] Alk Phos 41 40 - 129 IU/L [facility] Comment:No reference range e stablished for patients <18 years old. ALT (SGPT) 40 <=41 IU/L [facility] AST(SGOT) 52(H) 5 - 40 IU/L [facility] Blood 09/24/2024 12:5 5 PM COGNOS LEAD 09/24/2024 1:21 PM COGNOS LEAD us Alok Suazo MD LABORATORY Final Result Performing Organization Address [facility]/ZIP Co de Phone Number [facility] [address] [address] * LACTATE (LACTIC ACID) (09/24/2024 12:55 PM COGNOS LEAD) Pathologist [facility] Lactate 0.8 0.7 - 2.1 mmol/L [facility] Blood 09/24/2024 12:5 5 PM COGNOS LEAD 09/24/2024 1:01 PM COGNOS LEAD Narrative [facility] - 09/24/2024 1:02 PM COGNOS LEAD Send specimen on ice! us Alok Suazo MD LABORATORY Final Result Performing Organization Address [facility] Co de Phone Number [facility] [address] [address] * BLOOD GASES (09/24/2024 12:55 PM COGNOS LEAD) Pathologist [facility] PH Paco 7.41 7.32 - 7.42 [facility] PCO2 Paco 43 41 - 51 mmHG [facility] PO2 Paco 27 25 - 40 mmHG [facility] Bicarb Paco 27 24 - 28 mEq/L [facility] O2 Sat Paco 46 % [facility] Base Exc Paco 1.8 -10.0 - 2.0 mmol/L [facility] Blood Venous 09/24/2024 12:5 5 PM COGNOS LEAD 09/24/2024 1:02 PM COGNOS LEAD us Alok Suazo MD LABORATORY Final Result Performing Organization Address City/[facility]/ZIP Co de Phone Number [address] [address] * (ABNORMAL) FIBRINOGEN (09/24/2024 12:55 PM COGNOS LEAD) Pathologist [facility] Fibrinogen 417(H) 200 - 400 mg/dL [facility] Blood 09/24/2024 12:5 5 PM COGNOS LEAD 09/24/2024 1:20 PM COGNOS LEAD us Alok Suazo MD LABORATORY Final Result Performing Organization Address [facility] de Phone Number [facility] [address] [address] * ETHANOL (ETOH) LEVEL, BLOOD (09/24/2024 12:55 PM COGNOS LEAD) Ethanol Negative Negative g/dL [facility] Blood 09/24/2024 12:5 5 PM COGNOS LEAD 09/24/2024 1:20 PM COGNOS LEAD us Alok Suazo MD LABORATORY Final Result Performing Organization Address [facility] de Phone Number [address] [address] * PTT (APTT) (09/24/2024 12:55 PM COGNOS LEAD) APTT 25.4 25.0 - 37.0 sec [facility] Blood 09/24/2024 12:5 5 PM COGNOS LEAD 09/24/2024 1:20 PM COGNOS LEAD us Alok Suazo MD LABORATORY Final Result Performing Organization Address [facility] de Phone Number [address] [address] * (ABNORMAL) ED US CRITICAL CARE (09/24/2024 12:47 PM COGNOS LEAD) Anatomical Region Laterality Modality Ultrasound Narrative 09/24/2024 1:56 PM COGNOS LEAD Study: Bedside e-FAST (Extended) Exam Indication: Trauma. [...] CT CHEST OUTSIDE FILMS (09/24/2024 9:46 AM COGNOS LEAD) Narrative User, [id number] - 09/26/2024 6:12 AM COGNOS LEAD Outside Film Only us Outside Provider RAD OUTSIDE FILMS Final Result * CT CHEST/ABDOMEN/PELVIS OUTSIDE FILMS (09/21/2024 9:01 AM COGNOS LEAD) Narrative User, [id number] - 09/26/2024 6:13 AM COGNOS LEAD Outside Film Only us Outside Provider RAD OUTSIDE FILMS Final Result from Last 3 Months Advance Directives For more information, please contact: [phone] * Full Code (Latest Code Status on File) Date Activated Date Inactivated Comments 09/25/2024 9:32 AM 09/28/2024 8:46 PM Question Answer Comments Does the Patient have prefer ences regarding life sustaining measures (these options only apply when the patient has a pulse): No Discussed Code Status With Whom? Not discussed
--- OUTSIDE RECORDS SUMMARY | 2024-09-30 23:52 | XMS_ITS | Encounter Summary ---
Author Organization [facility] Address [address] [place] [phone] Phone Care Team Providers Care Chemists Name Role Phone Unavailable Primary Care Provider Unavailabl e Encounter Details Date Type Department Care Team (Late st Contact Info) Description 09/26/2024 Orders Only Unspecified Department [place] Unknown, Provider Social History Tobacco Use Types Packs/Day Years [...] on file Legal Sex Male 11:38 AM JELLY MAKER Gender Identity Not on file Sexual Orientation Not on file documented as of this encounter Plan of Treatment Upcoming Encounters Date Type Department Care Team (Late st Contact Info) Description 10/10/2024 9:30 AM JELLY MAKER [facility] [address] [place] [phone] Shaila, Gen Surg Trauma [address] [place] [phone] Scheduled Discharge Disposition: Discharged to home or self care 11/03/2024 1:00 PM JELLY MAKER Office [facility] [address] [place] [phone] Talha Anderson MD [address] [place] [phone] Scheduled Discharge Disposition: Discharged to home or self care documented as of this encounter Procedures Procedure Name Priority Date/Time Associated Diagnosis Comments TELEMETRY STRIPS 09/26/2024 7:25 AM JELLY MAKER documented in this encounter Results * TELEMETRY STRIPS (09/26/2024 7:25 AM JELLY MAKER) Narrative 09/26/2024 7:25 AM JELLY MAKER Ordered by an unspecified provider. us Provider Unknown RAD ECHO Final Result documented in this encounter Visit Diagnoses Not on filedocumented in this encounter
--- OUTSIDE RECORDS SUMMARY | 2024-09-30 23:52 | XMS_ITS | Encounter Summary ---
Author Organization [facility] Address [address] [place] [phone] Phone Care Team Providers Care International Trade Analyst Name Role Phone Unavailable Primary Care Provider Unavailabl e Encounter Details Date Type Department Care Team (Late st Contact Info) Description 09/25/2024 Orders Only Unspecified Department [place] Unknown, [...] money to buy more. 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 Gender Identity Not on file Sexual Orientation Not on file documented as of this encounter Plan of Treatment Upcoming Encounters Date Type Department Care Team (Late st Contact Info) Description 10/10/2024 9:30 AM BEATER AND PULPER FEEDER [facility] [address] [place] [phone] Shaila, Gen Surg Trauma [address] [place] [phone] Scheduled Discharge Disposition: Discharged to home or self care 11/03/2024 1:00 PM BEATER AND PULPER FEEDER Office [facility] [address] [place] [phone] Talha Anderson MD [address] [place] [phone] Scheduled Discharge Disposition: Discharged to home or self care documented as of this encounter Procedures Procedure Name Priority Date/Time Associated Diagnosis Comments TELEMETRY STRIPS 09/25/2024 8:33 PM BEATER AND PULPER FEEDER documented in this encounter Results * TELEMETRY STRIPS (09/25/2024 8:33 PM BEATER AND PULPER FEEDER) Narrative 09/25/2024 8:33 PM BEATER AND PULPER FEEDER Ordered by an unspecified provider. us Provider Unknown RAD ECHO Final Result documented in this encounter Visit Diagnoses Not on filedocumented in this encounter
--- OUTSIDE RECORDS SUMMARY | 2024-09-30 23:52 | XMS_ITS | Encounter Summary ---
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 2000, Until Discontinued Given 09/28/2024 8:27 AM CRAB PICKER 30 mg Abdominal Tissue Given 09/27/2024 8:06 PM CRAB PICKER 30 mg Ri ght Lower Quadrant Abdomen Given 09/27/2024 7:50 AM CRAB PICKER 30 mg Ab dominal Tissue fentaNYL (SUBLIMAZE) 100 mcg/2mL injection 50 mcg 50 mcg, IV Push, ONE TIME, 1 dose, On 09/24/24 at 1335 Given 09/24/2024 1:34 PM CRAB PICKER 50 mcg fentaNYL (SUBLIMAZE) 100 mcg/2mL injection 50 mcg 50 mcg, IV Push, ONE TIME, 1 dose, On 09/24/24 at 1630 Given 09/24/2024 4:26 PM CRAB PICKER 50 mcg HYDROmorphone PF (DILAUDID) 1 mg/mL injection 0.3-0.5 mg 0.3-0.5 mg, IV Push, Q4H PRN, Starting on 09/25/24 at 0932, Until Thu09/27/24 at 1234, Severe Pain (Use First) Given 09/27/2024 4:14 AM CRAB PICKER 0.5 mg Given 09/26/2024 8:40 PM CRAB PICKER 0.5 mg Given 09/26/2024 2:36 PM CRAB PICKER 0.5 mg HYDROmorphone PF (DILAUDID) 1 mg/mL injection 0.3-0.5 mg 0.3-0.5 mg, IV Push, Q6H PRN, Starting on Thu09/27/24 at 1233, Until Thu09/28/24 at 1233, Severe Pain (Use First) Given 09/28/2024 9:02 AM CRAB PICKER 0.5 mg Given 09/28/2024 2:56 AM CRAB PICKER 0.5 mg Given 09/27/2024 8:06 PM CRAB PICKER 0.5 mg HYDROmorphone PF (DILAUDID) 1 mg/mL injection 0.5 mg 0.5 mg, IV Push, ONE TIME, 1 dose, On 09/24/24 at 2105 Given 09/24/2024 9:05 PM CRAB PICKER 0.5 mg HYDROmorphone PF (DILAUDID) 1 mg/mL injection 0.5 mg 0.5 mg, IV Push, ONE TIME, 1 dose, On 09/24/24 at 2310 Given 09/24/2024 11:24 PM CRAB PICKER 0.5 mg HYDROmorphone PF (DILAUDID) 1 mg/mL injection 0.5 mg 0.5 mg, IV Push, ONE TIME, 1 dose, On 09/25/24 at 0535 Given 09/25/2024 5:33 AM CRAB PICKER 0.5 mg HYDROmorphone PF (DILAUDID) 1 mg/mL injection 1 mg 1 mg, IV Push, ONE TIME, 1 dose, On 09/24/24 at 1540 Given 09/24/2024 3:46 PM CRAB PICKER 1 mg HYDROmorphone PF (DILAUDID) 1 mg/mL injection 1 mg 1 mg, IV Push, ONE TIME, 1 dose, On 09/24/24 at 1735 Given 09/24/2024 5:38 PM CRAB PICKER 1 mg iohexol (OMNIPAQUE) 350 mg/mL injection IV Push, RAD ONE TIME AUTO ACKNOWLEDGE, 1 dose, On 09/24/24 at 1340 Given 09/24/2024 1:37 PM CRAB PICKER 120 mL Right Arm oxyCODONE (ROXICODONE) tablet 10 mg 10 mg, Oral, ONE TIME, 1 dose, On 09/24/24 at 1955 Given 09/24/2024 7:54 PM CRAB PICKER 10 mg oxyCODONE (ROXICODONE) tablet 10 mg 10 mg, Oral, ONE TIME, 1 dose, On 09/25/24 at 0810 Given 09/25/2024 8:15 AM CRAB PICKER 10 mg oxyCODONE (ROXICODONE) tablet 5-10 mg 5-10 mg, Oral, Q6H PRN, Starting on 09/25/24 at 0932, Until Thu09/26/24 at 1611, Moderate Pain (Use First) Given 09/26/2024 2:27 PM CRAB PICKER 10 mg Given 09/26/2024 8:03 AM CRAB PICKER 10 mg Given 09/26/2024 2:15 AM CRAB PICKER 10 mg oxyCODONE (ROXICODONE) tablet 5-10 mg 5-10 mg, Oral, Q4H PRN, Starting on Thu09/26/24 at 1610, Until Thu09/28/24 at 2046, Moderate Pain (Use First) Given 09/28/2024 5:07 PM CRAB PICKER 10 mg Given 09/28/2024 12:51 PM CRAB PICKER 10 mg Given 09/28/2024 8:27 AM CRAB PICKER 10 mg polyethylene glycol 3350 (MIRALAX;GLYCOLAX) packet 17 g 17 g, Oral, ONE TIME-NOW, 1 dose, On 09/25/24 at 0940 Given 09/25/2024 10:11 AM CRAB PICKER 17 g polyethylene glycol 3350 (MIRALAX;GLYCOLAX) packet 17 g 17 g, Oral, DAILY, First dose on Thu09/26/24 at 0800, Until Discontinued Given 09/27/2024 7:50 AM CRAB PICKER 17 g Given 09/26/2024 8:03 AM CRAB PICKER 17 g propofol (DIPRIVAN) 200 mg/20mL injection 40 mg 40 mg, IV Push, ONE TIME, 1 dose, On 09/24/24 at 1625 Given 09/24/2024 4:01 PM CRAB PICKER 40 mg propofol (DIPRIVAN) 200 mg/20mL injection 40 mg 40 mg, IV Push, ONE TIME, 1 dose, On 09/24/24 at 1630 Given 09/24/2024 4:03 PM CRAB PICKER 40 mg propofol (DIPRIVAN) 200 mg/20mL injection 40 mg 40 mg, IV Push, ONE TIME, 1 dose, On 09/24/24 at 1630 Given 09/24/2024 4:05 PM CRAB PICKER 40 mg propofol (DIPRIVAN) 200 mg/20mL injection 40 mg 40 mg, IV Push, ONE TIME, 1 dose, On 09/24/24 at 1630 Given 09/24/2024 4:08 PM CRAB PICKER 40 mg propofol (DIPRIVAN) 200 mg/20mL injection 80 mg 80 mg, IV Push, ONE TIME, 1 dose, On 09/24/24 at 1625 Given 09/24/2024 3:56 PM CRAB PICKER 80 mg sennosides (SENOKOT) tablet 8.6 mg 8.6 mg, Oral, ONE TIME-NOW, 1 dose, On 09/25/24 at 0940 Given 09/25/2024 10:11 AM CRAB PICKER 8.6 mg sennosides-docusate sodium (STOOL SOFTENER/LAXATIVE) 8.6-50 mg tablet 1 tablet 1 tablet, Oral, BID, First dose on 09/25/24 at 2000, Until Discontinued Given 09/27/2024 8:07 PM CRAB PICKER 1 table t Given 09/27/2024 7:50 AM CRAB PICKER 1 tablet Given 09/26/2024 8:34 PM CRAB PICKER 1 tablet documented in this encounter Active and Recently Administered Medications Times are shown in CRAB PICKER. Scheduled Medication Order 09/26/2024 09/27/2024 09/28/2024 acetaminophen (TYLENOL) tablet 650 mg 650 mg, Oral, Q4H, First dose on 09/25/24 at 1510, Until Discontinued 0215 (Given - Provider: Sim Oden RN)0653 (Given - Provider: Sim Oden RN)0949 (Given - Provider: Nelia Feng RN)1428 (Given - Provider: Nelia Feng RN)1725 (Not Given (removes Due time) - Provider: Maru Bailon RN - Reason: Held per order - Comment: cummaltive overdose)8 (Given - Provider: Avelino James RN) 0200 (Not Given (removes Due time) - Provider: Joan Argueta RN - Reason: Patient sleeping)0416 (Given - Provider: Joan Argueta RN)1115 (Given - Provider: Maru Bailon RN)1323 (Given - Provider: Maru Bailon RN)1842 (Delayed (keeps Due time) - Provider: Maru Bailon RN - Reason: Patient not in room)2005 (Given - Provider: Javier Knott RN)2213 (Not Given (removes Due time) - Provider: Javier Knott RN - Reason: Patient sleeping) 0243 (Delayed (keeps Due time) - Provider: Javier Knott RN - Reason: Patient sleeping)0418 (Given - Provider: Javier Knott RN)0538 (Not Given (removes Due time) - Provider: Javier Knott RN - Reason: Held per nurse - Comment: was given prior dose less than 2 hours ago, held at this time)1144 (Given - Provider: Maru Bailon RN)1508 (Given - Provider: Maru Bailon RN) cyclobenzaprine (FLEXERIL) tablet 10 mg 10 mg, Oral, TID, First dose on Thu09/28/24 at 1435, Until Discontinued 1508 (Given - Provider: Maru Bailon RN) DC MED REC REVIEW BY PHARMACY(Linked Group 1) Discharge Date: 09/28/2024, Discharge Location: Home, Anticipated Discharge Time: After 2 pm, Discharge Medication Orders: DC Med Orders Final, Does not apply, PROTOCOL, Starting on Thu09/28/24 at 1415, Until Thu09/28/24 at 2046 enoxaparin (LOVENOX) 30 mg/0.3 mL injection 30 mg 30 mg, Subcutaneous, Q12H, First dose on Thu09/25/24 at 2000, Until Discontinued 0803 (Given - Provider: Nelia Feng RN)2033 (Given - Provider: Avelino James RN) 075 (Given - Provider: Maru Bailon RN)2005 (Given - Provider: Javier Knott RN) 826 (Given - Provider: Maru Bailon RN) polyethylene glycol 3350 (MIRALAX;GLYCOLAX) packet 17 g 17 g, Oral, DAILY, First dose on Thu09/26/24 at 0800, Until Discontinued 802 (Given - Provider: Nelia Feng RN) 075 (Given - Provider: Maru Bailon RN) 827 (Not Given (removes Due time) - Provider: Maru Bailon RN - Reason: Patient refused) sennosides-docusate sodium (STOOL SOFTENER/LAXATIVE) 8.6-50 mg tablet 1 tablet 1 tablet, Oral, BID, First dose on Thu09/25/24 at 2000, Until Discontinued 802 (Given - Provider: Nelia Feng RN)2033 (Given - Provider: Avelino James RN) 075 (Given - Provider: Maru Bailon RN)2006 (Given - Provider: Javier Knott RN) 827 (Not Given (removes Due time) - Provider: Maru Bailon RN - Reason: Patient refused) VTE Anti Xa Monitoring Does not apply, PROTOCOL, Starting on Thu09/25/24 at 0932, Until Thu09/28/24 at 2046 PRN Medication Order 09/26/2024 09/27/2024 09/28/2024 HYDROmorphone PF (DILAUDID) 1 mg/mL injection 0.3-0.5 mg (CANCELED) 0.3-0.5 mg, IV Push, Q4H PRN, Starting on Thu09/25/24 at 0932, Until Thu09/27/24 at 1234, Severe Pain (Use First) 0010 (Given - Provider: Sim Oden RN)0455 (Given - Provider: Sim Oden RN)0949 (Given - Provider: Nelia Feng RN)1436 (Given - Provider: Nelia Feng RN)204 (Given - Provider: Avelino James RN) 0414 (Given - Provider: Joan Argueta RN) HYDROmorphone PF (DILAUDID) 1 mg/mL injection 0.3-0.5 mg (CANCELED) 0.3-0.5 mg, IV Push, Q6H PRN, Starting on Thu09/27/24 at 1233, Until Thu09/28/24 at 1233, Severe Pain (Use First) 1446 (Given - Provider: Maru Bailon RN)2005 (Given - Provider: Javier Knott RN) 0256 (Given - Provider: Javier Knott RN)0902 (Given - Provider: Maru Bailon RN) ondansetron (ZOFRAN) tablet 4 mg 4 mg, Oral, Q6H PRN, Starting on 09/25/24 at 0932, Until Thu09/28/24 at 2046, Nausea/Vomiting (Use First), Use if patient able to tolerate oral tablet oxyCODONE (ROXICODONE) tablet 5-10 mg (CANCELED) 5-10 mg, Oral, Q6H PRN, Starting on 09/25/24 at 0932, Until Thu09/26/24 at 1611, Moderate Pain (Use First) 0215 (Given - Provider: Sim Oden RN)0803 (Given - Provider: Nelia Feng RN)1427 (Given - Provider: Nelia Feng RN) oxyCODONE (ROXICODONE) tablet 5-10 mg 5-10 mg, Oral, Q4H PRN, Starting on Thu09/26/24 at 1610, Until Thu09/28/24 at 2046, Moderate Pain (Use First) 1725 (Given - Provider: Maru Bailon RN)2128 (Given - Provider: Avelino James RN) 0508 (Not Given (removes Due time) - Provider: Joan Argueta RN - Reason: Patient refused - [facility] (Given - Provider: Joan Argueta RN)1120 (Given - Provider: Maru Bailon RN)1726 (Given - Provider: Alva Garcia RN)2126 (Not Given (removes Due time) - Provider: Javier Knott RN - Reason: Patient sleeping) 0418 (Given - Provider: Javier Knott RN)0827 (Given - Provider: Maru Bailon RN)1251 (Given - Provider: Maru Bailon, SKYE)8959 (Given - Provider: Maru Bailon RN) Linked Groups Order Group 1: DC MED REC REVIEW BY PHARMACYJump to med Discharge Date: 09/28/2024, Discharge Location: Home, Anticipated Discharge Time: After 2 pm, Discharge Medication Orders: DC Med Orders Final, Does not apply, PROTOCOL, Starting on Thu09/28/24 at 1415, Until Thu09/28/24 at 2046 And Discharge Med Rec Final Review by Pharmacy (COMPLETED) Routine, Order to be placed by provider after medications have been entered for discharge and are ready for review by Pharmacist. This order can be placed multiple times if changes or additions have been made to medications for discharge. Choose the Preliminary DC Med Rec review when placing orders prior to the day of discharge. Choose Final DC Med Rec when all medication changes have been entered. If DC Med Rec needed now, please page the Pharmacist covering the patient to inform them., Discharge Date: 09/28/2024, Discharge Location: Home, Anticipated Discharge Time: After 2 pm documented in this encounter
--- OUTSIDE RECORDS SUMMARY | 2024-09-30 23:52 | XMS_ITS | Encounter Summary ---
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 Gender Identity Not on file Sexual Orientation Not on file documented as of this encounter Plan of Treatment Upcoming Encounters Date Type Department Care Team (Late st Contact Info) Description 10/10/2024 9:30 AM CANDLE MOLDER MACHINE [facility] [address] [place] [phone] Shaila, Gen Surg Trauma [address] [place] [phone] Scheduled Discharge Disposition: Discharged to home or self care 11/03/2024 1:00 PM CANDLE MOLDER MACHINE [facility] [address] [place] [phone] Talha Anderson MD [address] [address] Scheduled Discharge Disposition: Discharged to home or self care documented as of this encounter Visit Diagnoses Not on filedocumented in this encounter
--- OUTSIDE RECORDS SUMMARY | 2024-09-30 23:52 | XMS_ITS | Encounter Summary ---
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 Gender Identity Not on file Sexual Orientation Not on file documented as of this encounter Plan of Treatment Upcoming Encounters Date Type Department Care Team (Late st Contact Info) Description 10/10/2024 9:30 AM CLINICAL TECH [facility] [address] [place] [phone] Shaila, Gen Surg Trauma [address] [place] [id number] Scheduled Discharge Disposition: Discharged to home or self care 11/03/2024 1:00 PM CLINICAL TECH [facility] [address] [place] [phone] Talha Anderson MD [address] [place] [phone] Scheduled Discharge Disposition: Discharged to home or self care documented as of this encounter Procedures Procedure Name Priority Date/Time Associated Diagnosis Comments TELEMETRY STRIPS 09/26/2024 4:19 AM CLINICAL TECH documented in this encounter Results * TELEMETRY STRIPS (09/26/2024 4:19 AM CLINICAL TECH) Narrative 09/26/2024 4:19 AM CLINICAL TECH Ordered by an unspecified provider. us Provider Unknown RAD ECHO Final Result documented in this encounter Visit Diagnoses Not on filedocumented in this encounter
--- OUTSIDE RECORDS SUMMARY | 2024-09-30 23:53 | XMS_ITS | Referral Summary ---
Author Organization [facility] Address [address] [place] [address] Care Team Providers Care Biomedical Engineer Name Role Phone Tiana Ma M.D. Primary Care Provider Source Comments Patient records contain information from all sites at [facility]. For routine questions regarding patient records, call [phone] during business hours, M-F 8:00 AM - 5:00 PM Central Time. Record requests for emergency care only can be directed to [phone] at any time.[facility] Encounters Date Type Department Care Team Description 09/22/2024 Orders Only Division of Trauma Critical Care and General Surgery in [address] [phone] Florentin Anderson, PNeriA.-CNeri 09/22/2024 Clinical Communication Division of Trauma Critical Care and General Surgery in [address] [phone] Theresa Pandya P.A.-C. Rx Prior Authorization (oxyCODONE IR tablet 5 mg (Roxicodone)/) 09/22/2024 Orders Only Department of Orthopedic Surgery in [address] [phone] Ce Braxton, PNeriANeri-C., M.S. Fracture Scapula Body Nondisplaced Closed Initial Left (Primary Dx) 09/22/2024 Clinical Communication Division of Trauma Critical Care and General Surgery in [place], [place] [address] [place] [phone] Theresa Pandya P.A.-C. Post Hospital Follow-up (Rib fx f/u) 09/21/2024 12:15 PM SLIPPER MAKER - 09/22/2024 3:21 PM SLIPPER MAKER Hospital Encounter [facility], [facility], Fourth Floor [address] [place] [phone] Dayday Harmon D.O. Vu, Trang N, M.D. Ovidio Caban M.D. Charline Harris M.D., M.S. Pneumothorax Trauma Initial (Primary Dx); Fracture Rib Multiple Closed Initial Left; Fracture Scapula Body Nondisplaced Closed Initial Left; Contusion Lung Initial Left Discharge Disposition: Home or Self Care 09/21/2024 Intake [facility] 09/21/2024 8:27 AM SLIPPER MAKER - 09/21/2024 11:59 PM SLIPPER MAKER Emergency [facility] [address], [place] [address] Fracture Rib Multiple Closed Initial [...] drink = 0.6 oz pur e alcohol) [facility] Utilities Answer Date Recorded In the past 12 months has e H[employer]BLO[employer], gas, oil, or water [employer] threatened to shut off services in your [...] your living situation today? I have a [facility] place to live 09/21/2024 Sex and Gender Information Value Date Recorded Sex Assigned at Not on file Legal Sex Male 7:15 PM SLIPPER MAKER Gender Identity Not on file Sexual Orientation Not on file Last Filed Vital Signs Vital Sign Reading Time Taken Comments Blood Pressure 156/98 09/22/2024 7:55 AM SLIPPER MAKER Pulse 93 09/22/2024 5:15 AM SLIPPER MAKER Temperature 36.6 C (97.9 F) 09/22/2024 7:55 AM SLIPPER MAKER Respiratory Rate 18 09/22/2024 12:1 4 PM SLIPPER MAKER Oxygen Saturation 100% 09/22/2024 7:55 AM SLIPPER MAKER Inhaled Oxygen Concentration - - Weight 77.4 kg (170 lb 10.2 oz) 09/21/2024 3:00 PM SLIPPER MAKER Height 180.3 cm (5' 11) 09/21/2024 3:00 PM SLIPPER MAKER Body Mass Index 23.8 09/21/2024 3:00 PM SLIPPER MAKER Plan of Treatment Upcoming Encounters Date Type Department Care Team (Late st Contact Info) Description 10/06/2024 10:30 AM SLIPPER MAKER Office Visit Department of Family Medicine, [facility], in [place], [place] [address] [place] [phone] Rhett Montes De Oca M.D. [address] [place] [address] 10/07/2024 7:15 AM SLIPPER MAKER Appointment Department of Radiology, Formerly [facility] in [address] [phone] Theresa Pandya P.A.-C. [address] [place] [phone] 10/07/2024 8:00 AM SLIPPER MAKER Office Visit Division of Trauma Critical Care and General Surgery in [address] [phone] Theresa Pandya P.ANeri-C. [address] [place] [phone] 10/13/2024 10:00 AM SLIPPER MAKER Appointment Department of Radiology, [facility] in [address] [phone] Ce Braxton P.A.-C., M.S. [address] [place] [phone] Discharge Disposition: Home or Self Care 10/13/2024 11:00 AM SLIPPER MAKER Office Visit Department of Orthopedic Surgery in [address] [phone] Ce Braxton P.A.-C., M.S. [address] [place] [phone] Procedures Procedure Name Priority Date/Time Associated Diagnosis Comments CRITICAL CARE Routine 09/22/2024 3:21 PM SLIPPER MAKER DX CHEST AP OR PA AND LATERAL 2 VIEWS RAD - Timed (for specific dates/times) 09/22/2024 2:09 PM SLIPPER MAKER DX CHEST PORTABLE 1 VIEW RAD - Routine (most inpatients and all outpatients) 09/22/2024 5:29 AM SLIPPER MAKER CBC WITH DIFFERENTIAL, B Routine 09/21/2024 8:44 PM SLIPPER MAKER BASIC METABOLIC PANEL, S/P Routine 09/21/2024 8:44 PM SLIPPER MAKER DX ABDOMEN 1 VIEW RAD - Routine (most inpatients and all outpatients) 09/21/2024 7:37 PM SLIPPER MAKER DX CHEST AP OR PA AND LATERAL 2 VIEWS RAD - Emergent (Fastest; for the most critically ill patients) 09/21/2024 7:37 PM SLIPPER MAKER TROPONIN T, 2H/6H REFLEX, 5TH GEN, P Timed 09/21/2024 6:25 PM SLIPPER MAKER DX CHEST PORTABLE 1 VIEW RAD - Timed (for specific dates/times) 09/21/2024 5:58 PM SLIPPER MAKER ADULT OXYGEN THERAPY Routine 09/21/2024 5:01 PM SLIPPER MAKER ADULT OXYGEN THERAPY Routine 09/21/2024 5:01 PM SLIPPER MAKER ADULT OXYGEN THERAPY Routine 09/21/2024 5:01 PM SLIPPER MAKER DX CHEST PORTABLE 1 VIEW RAD - Emergent (Fastest; for the most critically ill patients) 09/21/2024 4:43 PM SLIPPER MAKER LACTATE, B/P STAT 09/21/2024 4:27 PM SLIPPER MAKER MAGNESIUM, S STAT 09/21/2024 4:27 PM SLIPPER MAKER BASIC METABOLIC PANEL, S/P STAT 09/21/2024 4:27 PM SLIPPER MAKER CBC WITHOUT DIFFERENTIAL, B STAT 09/21/2024 4:27 PM SLIPPER MAKER TROPONIN T, BASELINE, 5TH GEN, P STAT 09/21/2024 4:27 PM SLIPPER MAKER ECG STAT 09/21/2024 4:18 PM SLIPPER MAKER ECG STAT 09/21/2024 1:[address] LUMBAR SPINE WITHOUT IV CONTRAST RAD - Emergent (Fastest; for the most critically ill patients) 09/21/2024 1:[address] THORACIC SPINE WITHOUT IV CONTRAST RAD - Emergent (Fastest; for the most critically ill patients) 09/21/2024 1:[address] MAXILLOFACIAL WITHOUT IV CONTRAST RAD - Routine (most inpatients and all outpatients) 09/21/2024 1:[address] NECK ANGIOGRAM WITH IV CONTRAST RAD - Emergent (Fastest; for the most critically ill patients) 09/21/2024 1:05 PM SLIPPER MAKER LACTATE, POCT, B STAT 09/21/2024 12:3 4 PM SLIPPER MAKER VBG & LYTES CG8+, POCT, B STAT 09/21/2024 12:33 PM SLIPPER MAKER THROMBOELASTOGRAPH, KAOLIN, B STAT 09/21/2024 12:32 PM SLIPPER MAKER TYPE AND SCREEN STAT 09/21/2024 12:32 PM SLIPPER MAKER PROTHROMBIN TIME (PT), P STAT 09/21/2024 12:32 PM SLIPPER MAKER CBC WITH DIFFERENTIAL, B STAT 09/21/2024 12:32 PM SLIPPER MAKER LIPASE, S/P STAT 09/21/2024 12:32 PM SLIPPER MAKER ETHANOL, S STAT 09/21/2024 12:32 PM SLIPPER MAKER BASIC METABOLIC PANEL, S/P STAT 09/21/2024 12:32 PM SLIPPER MAKER DX CHEST PORTABLE 1 VIEW RAD - Emergent (Fastest; for the most critically ill patients) 09/21/2024 12:29 PM SLIPPER MAKER DX SHOULDER LEFT 2+ VIEWS RAD - Semiurgent (Fast; most ED patients; some inpatients) 09/21/2024 9:[address] ABDOMEN PELVIS WITH IV CONTRAST RAD - Semiurgent (Fast; most ED patients; some inpatients) 09/21/2024 9:[address] CHEST WITH IV CONTRAST RAD - Semiurgent (Fast; most ED patients; some inpatients) 09/21/2024 9:[address] HEAD WITHOUT IV CONTRAST RAD - Semiurgent (Fast; most ED patients; some inpatients) 09/21/2024 9:[address] CERVICAL SPINE WITHOUT IV CONTRAST RAD - Semiurgent (Fast; most ED patients; some inpatients) 09/21/2024 9:17 AM SLIPPER MAKER DX ANKLE LEFT 3+ VIEWS RAD - Semiurgent (Fast; most ED patients; some inpatients) 09/21/2024 9:07 AM SLIPPER MAKER from Last 3 Months Results * Critical Care (09/22/2024 3:21 PM SLIPPER MAKER) Narrative Dayday Harmon D.O. - 09/22/2024 3:21 PM SLIPPER MAKER Dayday Harmon D.O. 09/23/2024 7:29 AM Critical [...] and Lateral 2 Views (09/22/2024 2:09 PM SLIPPER MAKER) Only the most recent of2 resultswithin the time period is included. Anatomical Region Laterality Modality Chest, Thoracic RST LOS, Tho racic ARZ LOS, Thoracic FLA LOS N/A Digital Radiography Impressions 09/22/2024 2:17 PM SLIPPER MAKER Tiny right pneumothorax is slightly smaller than earlier this morning. No visible pneumothorax on the left. Multiple acute and displaced left upper rib fractures. Narrative 09/22/2024 2:17 PM SLIPPER MAKER EXAM: DX CHEST AP OR PA AND [...] Chest Portable 1 View (09/22/2024 5:29 AM SLIPPER MAKER) Only the most recent of4 resultswithin the time period is included. Anatomical Region Laterality Modality Chest, Thoracic RST LOS, Tho racic ARZ LOS, Thoracic FLA LOS N/A Digital Radiography Impressions 09/22/2024 5:40 AM SLIPPER MAKER Compared to 09/21/2024, slightly decreased airspace opacities left upper lung. Persistent trace left apical pneumothorax. Stable small right apical pneumothorax. Left-sided rib fractures. No significant pleural effusion. Narrative 09/22/2024 5:40 AM SLIPPER MAKER EXAM: DX CHEST PORTABLE 1 VIEW Procedure Note Manas Herrera M.D. - 09/22/2024 EXAM: DX CHEST PORTABLE 1 VIEW IMPRESSION: Compared to 09/21/2024, slightly decreased airspace opacities left upperlung. Persistent trace left apical pneumothorax. Stable small right apicalpneumothorax. Left-sided rib fractures. No significant pleural effusion. Jose G [facility] PROCEDURES Final Result * (ABNORMAL) CBC with Differential, Blood (09/21/2024 8:44 PM SLIPPER MAKER) Only the most recent of2 resultswithin the time period is included. Hemoglobin 15.0 13.2 - 16.6 g/dL 09/21/2024 9:47 PM SLIPPER MAKER DHPM Hematocrit 43.3 38.3 - 48.6 % 09/21/2024 9:47 PM SLIPPER MAKER DHPM Erythrocytes 4.83 4.35 - 5.65 x10(12)/L 09/21/2024 9:47 PM SLIPPER MAKER DHPM MCV 89.6 78.2 - 97.9 fL 09/21/2024 9:47 PM SLIPPER MAKER DHPM RBC Distrib Width 11.9 11.8 - 14.5 % 09/21/2024 9:47 PM SLIPPER MAKER DHPM Platelet Count 280 135 - 317 x10(9)/L 09/21/2024 9:47 PM SLIPPER MAKER DHPM Leukocytes 13.0(H) 3.4 - 9.6 x10(9)/L 09/21/2024 9:47 PM SLIPPER MAKER DHPM Neutrophils 10.31(H) 1.56 - 6.45 x10(9)/L 09/21/2024 9:47 PM SLIPPER MAKER DHPM Lymphocytes 1.13 0.95 - 3.07 x10(9)/L 09/21/2024 9:47 PM SLIPPER MAKER DHPM Monocytes 1.54(H) 0.26 - 0.81 x10(9)/L 09/21/2024 9:47 PM SLIPPER MAKER DHPM Eosinophils <0.03 0.03 - 0.48 x10(9)/L 09/21/2024 9:47 PM SLIPPER MAKER DHPM Basophils <0.03 0.01 - 0.08 x10(9)/L 09/21/2024 9:47 PM SLIPPER MAKER DHPM Blood (Blood, Venous) 09/21/2024 8:44 PM SLIPPER MAKER 09/21/2024 9:29 PM SLIPPER MAKER us Travis Fermin P.A.-C. LAB BLOOD ADD-ON Final Res ult [facility] [address] [place] [address], [facility] [address] [place] [address] * (ABNORMAL) Basic Metabolic Panel (09/21/2024 8:44 PM SLIPPER MAKER) Only the most recent of3 resultswithin the time period is included. Pathologist [facility] Potassium, S 4.2 3.6 - 5.2 mmol/L 09/21/2024 9:59 PM SLIPPER MAKER DTL Sodium, S 134(L) 135 - 145 mmol/L 09/21/2024 9:59 PM SLIPPER MAKER DTL Chloride, S 98 98 - 107 mmol/L 09/21/2024 9:59 PM SLIPPER MAKER DTL Bicarbonate, S 21(L) 22 - 29 mmol/L 09/21/2024 9:59 PM SLIPPER MAKER DTL Anion Gap 15 7 - 15 09/21/2024 9:59 PM SLIPPER MAKER DTL BUN (Blood Urea Nitrogen), S 13 8 - 24 mg/dL 09/21/2024 9:59 PM SLIPPER MAKER DTL Creatinine 0.85 0.74 - 1.35 mg/dL 09/21/2024 9:59 PM SLIPPER MAKER DTL Estimated GFR (eGFR) >90 >=60 mL/min/BSA 09/21/2024 9:59 PM SLIPPER MAKER DTL Comment: Estimated GFR calculated using the 2020 CKD_EPI creatinine equation. Calcium, Total, S 9.3 8.6 - 10.0 mg/dL 09/21/2024 9:59 PM SLIPPER MAKER DTL Glucose, S 120 70 - 140 mg/dL 09/21/2024 9:59 PM SLIPPER MAKER DTL Blood (Blood, Venous) 09/21/2024 8:44 PM SLIPPER MAKER 09/21/2024 9:44 PM SLIPPER MAKER Travis Fermin P.A.-C. LAB BLOOD ADD-ON Final Res ult [address] [address], [facility] [address] [address] * DX Abdomen 1 View (09/21/2024 7:37 PM SLIPPER MAKER) Anatomical Region Laterality Modality Abdomen, Abdominal RST LOS, Abdominal ARZ LOS, Abdominal FLA LOS N/A Digital Radiography Impressions 09/21/2024 8:25 PM SLIPPER MAKER No pneumoperitoneum. Contrast in the urinary bladder. Narrative 09/21/2024 8:25 PM SLIPPER MAKER EXAM: DX ABDOMEN 1 VIEW Procedure Note Sim Puente M.D. - 09/21/2024 EXAM: DX ABDOMEN 1 VIEW IMPRESSION: No pneumoperitoneum. Contrast in the urinary bladder. Travis Fermin P.A.-C. IMG DIAGNOSTIC IMAGING PRO CEDURES Final Result * Troponin T, 2 Hour with 6 Hour Reflex, 5th Gen (09/21/2024 6:25 PM SLIPPER MAKER) Troponin T, 2 hr, 5th gen <6 <=15 ng/L 09/21/2024 6:49 PM SLIPPER MAKER STMA 2H Delta -1 ng/L 09/21/2024 6:49 PM SLIPPER MAKER STMA Comment:6 hour collection no t indicated. 2H Delta Interp Not Changing 09/21/2024 6:49 PM SLIPPER MAKER STMA Blood 09/21/2024 6:25 PM SLIPPER MAKER 09/21/2024 6:29 PM SLIPPER MAKER Travis Fermin P.A.-C. LAB BLOOD TROPONIN Final R esult Performing Organization Address [facility] Co de Phone Number [facility] [address] [place] [address], [facility] [address] [place] [address] * Troponin T, Baseline with 2 Hour/6 Hour Reflex Biomarker Panel (09/21/2024 4:27 PM SLIPPER MAKER) [facility] Troponin T, Baseline, 5th gen 6 <=15 ng/L 09/21/2024 4:57 PM SLIPPER MAKER STMA Blood (Blood, Venous) 09/21/2024 4:27 PM SLIPPER MAKER 09/21/2024 4:37 PM SLIPPER MAKER Travis Fermin P.A.-C. LAB BLOOD TROPONIN Final R esult Performing Organization Address [facility] Co de Phone Number [facility] [address] [place] [address], [facility] [address] [place] [address] * (ABNORMAL) CBC without Differential (09/21/2024 4:27 PM SLIPPER MAKER) [facility] Hemoglobin 15.2 13.2 - 16.6 g/dL 09/21/2024 4:46 PM SLIPPER MAKER STMA Hematocrit 44.5 38.3 - 48.6 % 09/21/2024 4:46 PM SLIPPER MAKER STMA Erythrocytes 4.86 4.35 - 5.65 x10(12)/L 09/21/2024 4:46 PM SLIPPER MAKER STMA MCV 91.6 78.2 - 97.9 fL 09/21/2024 4:46 PM SLIPPER MAKER STMA RBC Distrib Width 11.9 11.8 - 14.5 % 09/21/2024 4:46 PM SLIPPER MAKER STMA Platelet Count 277 135 - 317 x10(9)/L 09/21/2024 4:46 PM SLIPPER MAKER STMA Leukocytes 13.9(H) 3.4 - 9.6 x10(9)/L 09/21/2024 4:46 PM SLIPPER MAKER STMA Blood (Blood, Venous) 09/21/2024 4:27 PM SLIPPER MAKER 09/21/2024 4:37 PM SLIPPER MAKER us Travis Fermin P.A.-C. LAB BLOOD ADD-ON Final Res ult Performing Organization Address City/[facility]/ZIP Co de Phone Number [facility] [address] [place] [address] * Magnesium (09/21/2024 4:27 PM SLIPPER MAKER) Magnesium, P 2.1 1.7 - 2.3 mg/dL 09/21/2024 4:56 PM SLIPPER MAKER STMA Blood (Blood, Venous) 09/21/2024 4:27 PM SLIPPER MAKER 09/21/2024 4:37 PM SLIPPER MAKER us Travis Fermin P.A.-C. LAB BLOOD ADD-ON Final Res ult Performing Organization Address [facility] Co de Phone Number [facility] [address] [place] [address] * Lactate (09/21/2024 4:27 PM SLIPPER MAKER) Lactate, P 2.2 0.5 - 2.2 mmol/L 09/21/2024 4:50 PM SLIPPER MAKER STMA Blood (Blood, Venous) 09/21/2024 4:27 PM SLIPPER MAKER 09/21/2024 4:37 PM SLIPPER MAKER us Travis Fermin P.A.-C. LAB BLOOD NON ADD-ON Final Result [facility] [address] [place] [address], [facility] [address] [place] [address] * ECG 12 Lead (09/21/2024 4:18 PM SLIPPER MAKER) Only the most recent of2 resultswithin the time period is included. Ventricular Rate ECG/Min 70 BPM MUSE AR Interval 172 ms MUSE QRSD Interval 80 ms MUSE QT Interval 364 ms MUSE QTC Interval 393 ms MUSE P Mumford 58 degrees MUSE R Mumford 70 degrees MUSE T Wave Mumford 65 degrees MUSE 09/21/2024 4:18 PM SLIPPER MAKER 09/22/2024 7:21 AM SLIPPER MAKER Impressions MUSE - 09/21/2024 4:24 PM SLIPPER MAKER Normal sinus rhythm with sinus arrhythmia ST [...] Maxillofacial without IV Contrast (09/21/2024 1:05 PM SLIPPER MAKER) Anatomical Region Laterality Modality Jaw, Head, Neuroradiology RS T LOS, Neuroradiology ARZ LOS, Neuroradiology FLA LOS N/A Computed Tomography, Compute d Tomography Impressions 09/21/2024 1:21 PM SLIPPER MAKER No acute facial fracture. Narrative 09/21/2024 1:21 PM SLIPPER MAKER EXAM: CT MAXILLOFACIAL WITHOUT IV CONTRAST COMPARISON: [...] Spine without IV Contrast (09/21/2024 1:05 PM SLIPPER MAKER) Anatomical Region Laterality Modality Lumbar Spine, Neuroradiology RST [facility], Neuroradiology ARZ [facility], Neuroradiology FLA [facility] N/A Computed Tomography, Compute d Tomography Impressions 09/21/2024 1:14 PM SLIPPER MAKER Acute left upper rib fractures, bilateral pneumothoraces left pulmonary contusion as demonstrated on CT chest earlier today. Thoracic and lumbar spine otherwise negative. Narrative 09/21/2024 1:14 PM SLIPPER MAKER EXAM: CT THORACIC SPINE WITHOUT IV CONTRAST, [...] Spine without IV Contrast (09/21/2024 1:05 PM SLIPPER MAKER) Anatomical Region Laterality Modality Thoracic Spine, Neuroradiolo gy RST LOS, Neuroradiology ARZ LOS, Neuroradiology FLA LOS N/A Computed Tomography, Compute d Tomography Impressions 09/21/2024 1:14 PM SLIPPER MAKER Acute left upper rib fractures, bilateral pneumothoraces left pulmonary contusion as demonstrated on CT chest earlier today. Thoracic and lumbar spine otherwise negative. Narrative 09/21/2024 1:14 PM SLIPPER MAKER EXAM: CT THORACIC SPINE WITHOUT IV CONTRAST, [...] Angiogram with IV Contrast (09/21/2024 1:05 PM SLIPPER MAKER) Anatomical Region Laterality Modality Neck, Neuroradiology RST LOS , Neuroradiology ARZ LOS, Neuroradiology FLA LOS N/A Computed Tomography, Compute d Tomography 09/21/2024 12:5 9 PM SLIPPER MAKER Impressions 09/21/2024 1:20 PM SLIPPER MAKER 1. Carotid and vertebral arteries in the neck are patent and negative for acute traumatic injury. 2. 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 Narrative 09/21/2024 1:20 PM SLIPPER MAKER EXAM: CT NECK ANGIOGRAM WITH IV CONTRAST [...] saccular outpouching arising from the proximal left [id number], favored to represent a small aneurysm. us Shereen Pacheco.S. IMG CT PROCEDURES Final Res ult * (ABNORMAL) Lactate, POCT (09/21/2024 12:34 PM SLIPPER MAKER) Lactate, POCT 2.62(H) 0.50 - 2.20 mmol/L 09/21/2024 12:46 PM SLIPPER MAKER PCLX Blood (Blood, Venous) 09/21/2024 12:34 PM SLIPPER MAKER 09/21/2024 12:34 PM SLIPPER MAKER us Shereen PaezB.S. LAB POCT ORDERABLES - DEVIC E Final Result POC [facility] [address] [place] [address], [place] PCLX [facility] POC [address] [place] [address] * (ABNORMAL) Venous Blood Gas and Electrolytes CG8+, POCT (09/21/2024 12:33 PM SLIPPER MAKER) [facility] Sample Site, POCT Venstick 09/21/2024 12:46 PM SLIPPER MAKER PCLX Comment: ----ADDITIONAL INFORMATION---- Performed at the Point of Care pH, Venous, POCT, B 7.33 7.32 - 7.43 09/21/2024 12:46 PM SLIPPER MAKER PCSM Comment: ----ADDITIONAL INFORMATION---- Performed at the Point of Care pCO2, Venous, POCT, B 41 41 - 51 mm Hg 09/21/2024 12:46 PM SLIPPER MAKER PCSM Comment: ----ADDITIONAL INFORMATION---- Performed at the Point of Care pO2, Venous, POCT, B 63 Not Applicable mm Hg 09/21/2024 12:46 PM SLIPPER MAKER PCSM Comment: ----ADDITIONAL INFORMATION---- Performed at the Point of Care Base Excess, Venous, POCT, B -4 Not Applicable mmol/L 09/21/2024 12:46 PM SLIPPER MAKER PCSM Comment: ----ADDITIONAL INFORMATION---- Performed at the Point of Care HCO3, Venous, POCT, B 22 Not Applicable mmol/L 09/21/2024 12:46 PM SLIPPER MAKER PCSM Comment: ----ADDITIONAL INFORMATION---- Performed at the Point of Care Sodium, POCT, B 139 135 - 145 mmol/L 09/21/2024 12:46 PM SLIPPER MAKER PCLX Comment: ----ADDITIONAL INFORMATION---- Performed at the Point of Care Potassium, POCT, B 4.0 3.6 - 5.2 mmol/L 09/21/2024 12:46 PM SLIPPER MAKER PCLX Comment: ----ADDITIONAL INFORMATION---- Performed at the Point of Care Calcium, Ionized, POCT, B 5.10 4.65 - 5.30 mg/dL 09/21/2024 12:46 PM SLIPPER MAKER PCLX Comment: ----ADDITIONAL INFORMATION---- Performed at the Point of Care Glucose, POCT, B 172(H) 70 - 140 mg/dL 09/21/2024 12:46 PM SLIPPER MAKER PCLX Comment: ----ADDITIONAL INFORMATION---- Performed at the Point of Care Hematocrit, POCT, B 46.0 38.3 - 48.6 % 09/21/2024 12:46 PM SLIPPER MAKER PCLX Comment: ----ADDITIONAL INFORMATION---- Performed at the Point of Care Blood (Blood, Venous) 09/21/2024 12:33 PM SLIPPER MAKER 09/21/2024 12:33 PM SLIPPER MAKER us Shereen PaezB.S. LAB POCT ORDERABLES - DEVIC E Final Result Performing Organization Address [facility] Co de Phone Number POC [facility] [address] [place] [address], [facility] PCLX [facility] POC [address] [place] [address] PCSM [facility] POC [address] [place] [address] * Ethanol Level, Serum (09/21/2024 12:32 PM SLIPPER MAKER) Pathologist [facility] Ethanol, S <10 <10 mg/dL 09/21/2024 1:1 9 PM SLIPPER MAKER DTL Blood (Blood, Venous) 09/21/2024 12:32 PM SLIPPER MAKER 09/21/2024 12:58 PM SLIPPER MAKER us Shereen PaezB.S. LAB BLOOD NON ADD-ON Final Result Performing Organization Address [facility] de Phone Number [facility] [address] [place] [address], [facility] DTFormerly named [facility] [address] [place] [address] * (ABNORMAL) Thromboelastograph, Kaolin, Blood (09/21/2024 12:32 PM SLIPPER MAKER) R, Kaolin, TEG 3.0(L) 4.0 - 9.0 min 09/21/2024 2:05 PM SLIPPER MAKER STMA K, Kaolin, TEG 1.4 1.0 - 1.8 min 09/21/2024 2:05 PM SLIPPER MAKER STMA Angle, Kaolin, TEG 68.2 64.0 - 78.1 degrees 09/21/2024 2:05 PM SLIPPER MAKER STMA MA, Kaolin, TEG 63.8 57.1 - 72.6 mm 09/21/2024 2:05 PM SLIPPER MAKER STMA Ly30, Kaolin, TEG 1.4 0.0 - 4.8 % 09/21/2024 2:05 PM SLIPPER MAKER STMA Blood (Blood, Venous) 09/21/2024 12:32 PM SLIPPER MAKER 09/21/2024 12:32 PM SLIPPER MAKER Shereen PaezB.S. LAB BLOOD NON ADD-ON Final Result Performing Organization Address [facility]/State/ZIP Co de Phone Number [facility] [address] [place] [address], [facility] [address] [place] [address] * (ABNORMAL) Prothrombin Time (PT) (09/21/2024 12:32 PM SLIPPER MAKER) Prothrombin Time, P 12.9(H) 9.4 - 12.5 sec 09/21/2024 12:48 PM SLIPPER MAKER [facility] 0.9 - 1.1 09/21/2024 12:48 PM SLIPPER MAKER [facility] Comment: ----ADDITIONAL INFORMATION---- Standard intensity warfarin therapeutic range: 2.0 to 3.0 High intensity warfarin therapeutic range: 2.5 to 3.5 Blood (Blood, Venous) 09/21/2024 12:32 PM SLIPPER MAKER 09/21/2024 12:42 PM SLIPPER MAKER us Shereen aPezB.S. LAB BLOOD ADD-ON Final Resu lt [facility] [address] [place] [address], [facility] [address] [place] [address] * Type and Screen (with Reflex Antibody ID) (09/21/2024 12:32 PM SLIPPER MAKER) ABORh B Pos Not applicable 09/21/2024 1:19 PM SLIPPER MAK[employer] STRM Antibody Screen Negative Negative 09/21/2024 1:32 PM SLIPPER MAKER STRM Type & Screen Expiration 09/24/2024 23:59 09/21/2024 1:19 PM SLIPPER MAK[employer] STRM Testing Location [place] DEFAULT 09/21/2024 12:49 PM SLIPPER MAKER STRM Blood (Blood, Venous) 09/21/2024 12:32 PM SLIPPER MAKER 09/21/2024 12:49 PM SLIPPER MAKER us Shereen PaezB.S. LAB BLOOD BANK TEST ORDERAB LES Final Result Performing Organization Address [facility]/ZIP Co de Phone Number [facility] [address] [place] [address], [facility] STRM [facility] [address] [place] [address] * Lipase (09/21/2024 12:32 PM SLIPPER MAKER) Lipase, S 30 13 - 60 U/L 09/21/2024 1: 19 PM SLIPPER MAKER DTL Blood (Blood, Venous) 09/21/2024 12:32 PM SLIPPER MAKER 09/21/2024 12:58 PM SLIPPER MAKER us Shereen PaezB.S. LAB BLOOD ADD-ON Final Resu lt Performing Organization Address [facility] Co de Phone Number [facility] [address] [place] [address], [facility] DTL [facility] [address] [place] [address] * DX Shoulder Left 2+ Views (09/21/2024 9:25 AM SLIPPER MAKER) Anatomical Region Laterality Modality Upper Extremity, Shoulder, M usculoskeletal RST LOS, Musculoskeletal ARZ LOS, Muskuloskeletal FLA LOS Left Digit al Radiography Impressions 09/21/2024 9:35 AM SLIPPER MAKER Images are interpreted without comparison. There is [...] clavicle is intact. Narrative 09/21/2024 9:35 AM SLIPPER MAKER EXAM: DX SHOULDER LEFT 2+ VIEWS Procedure [...] isintact. Bertha Ferrera M.D. IMG DIAGNOSTIC IMAGING AR OCEDURES Final Result * CT Abdomen Pelvis with IV Contrast (09/21/2024 9:20 AM SLIPPER MAKER) Anatomical Region Laterality Modality Abdomen, Pelvis, Abdominal R ST LOS, Abdominal ARZ LOS, Abdominal FLA LOS N/A Computed Tomography 09/21/2024 9:13 AM SLIPPER MAKER Impressions 09/21/2024 9:40 AM SLIPPER MAKER 1. Small right and trace left pneumothoraces. Small left hemothorax. 2. Left first through sixth rib fractures with segmental fractures of the left third, fourth and fifth ribs. Extensive left pulmonary contusion. 3. No acute traumatic injury in the abdomen or pelvis. Result discussed with BERTHA FERRERA on 09/21/2024 9:38 AM. Narrative 09/21/2024 9:40 AM SLIPPER MAKER EXAM: CT CHEST WITH IV CONTRAST, CT [...] Chest with IV Contrast (09/21/2024 9:19 AM SLIPPER MAKER) Anatomical Region Laterality Modality Chest, Thoracic RST LOS, Tho racic ARZ LOS, Thoracic ARZ LOS, Thoracic FLA LOS N/A Computed Tomography 09/21/2024 9:13 AM SLIPPER MAKER Impressions 09/21/2024 9:40 AM SLIPPER MAKER 1. Small right and trace left pneumothoraces. Small left hemothorax. 2. Left first through sixth rib fractures with segmental fractures of the left third, fourth and fifth ribs. Extensive left pulmonary contusion. 3. No acute traumatic injury in the abdomen or pelvis. Result discussed with BERTHA FERRERA on 09/21/2024 9:38 AM. Narrative 09/21/2024 9:40 AM SLIPPER MAKER EXAM: CT CHEST WITH IV CONTRAST, CT [...] Head without IV Contrast (09/21/2024 9:18 AM SLIPPER MAKER) Anatomical Region Laterality Modality Head, Neuroradiology RST [facility] , Neuroradiology [facility], Neuroradiology [facility] N/A Computed Tomography 09/21/2024 9:19 AM SLIPPER MAKER Impressions 09/21/2024 9:26 AM SLIPPER MAKER 1. No acute intracranial pathology. 2. Facial fractures appear chronic. Narrative 09/21/2024 9:26 AM SLIPPER MAKER EXAM: CT HEAD WITHOUT IV CONTRAST COMPARISON: [...] Spine without IV Contrast (09/21/2024 9:17 AM SLIPPER MAKER) Anatomical Region Laterality Modality Cervical Spine, Neuroradiolo gy RST LOS, Neuroradiology ARZ LOS, Neuroradiology FLA LOS N/A Computed Tomography 09/21/2024 9:16 AM SLIPPER MAKER Impressions 09/21/2024 9:23 AM SLIPPER MAKER Negative for acute fracture of cervical spine. Narrative 09/21/2024 9:23 AM SLIPPER MAKER EXAM: CT CERVICAL SPINE WITHOUT IV CONTRAST [...] Ankle Left 3+ Views (09/21/2024 9:07 AM SLIPPER MAKER) Anatomical Region Laterality Modality Lower Extremity, Ankle, Musc uloskeletal RST LOS, Musculoskeletal ARZ LOS, Muskuloskeletal FLA LOS Left Digit al Radiography Impressions 09/21/2024 9:10 AM SLIPPER MAKER Negative left ankle radiographs. Narrative 09/21/2024 9:10 AM SLIPPER MAKER EXAM: DX ANKLE LEFT 3+ VIEWS Procedure Note Florentin Figueroa M.D. - 09/21/2024 EXAM: DX ANKLE LEFT 3+ VIEWS IMPRESSION: Negative left ankle radiographs. Bertha Ferrera M.D. IMG DIAGNOSTIC IMAGING AR OCEDURES Final Result from Last 3 Months Advance Directives For more information, please contact: [phone] * Full Code (Latest Code Status on File) Date Activated Date Inactivated Comments 09/22/2024 2:11 PM 09/22/2024 5:22 PM Question Answer Comments Full Code: Not Discussed Due to: Patient not available * Full Code Date Activated Date Inactivated Comments 03/18/2018 9:39 PM 03/20/2018 4:05 PM Question Answer Comments Full Code: Not Discussed Due to: Patient not available Care Teams Biomedical Engineer Relationship Specialty Start Date End Date Tiana Ma M.D. [address] [place] [phone] PCP - General Family Medicine 09/22/24
--- OUTSIDE RECORDS SUMMARY | 2024-09-30 23:53 | XMS_ITS | Encounter Summary ---
Author Organization [facility] Address [address] [place] [address] Care Team Providers Care Psychologist Social Name Role Phone Tiana Ma M.D. Primary Care Provider Encounter Details Date Type Department Care Team (Latest Contact Info) Description 09/21/2024 Intake [facility] Social History Tobacco Use Types Packs/Day Years Used Date Smoking Tobacco: Some Days Cigarettes Smokeless Tobacco: Never Comments:socially Alcohol Use Standard Drinks/Week Comments No 0 (1 standard drink = 0.6 oz pur e alcohol) [facility] Utilities Answer Date Recorded In the past 12 months has e [employer], gas, oil, or water [employer] threatened to shut off services in your [...] your living situation today? I have a [facility] place to live 09/21/2024 Sex and Gender Information Value Date Recorded Sex Assigned at Not on file Legal Sex Male 7:15 PM EPIC RADIANT ANALYST Gender Identity Not on file Sexual Orientation Not on file documented as of this encounter Plan of Treatment Upcoming Encounters Date Type Department Care Team (Late st Contact Info) Description 10/06/2024 10:30 AM EPIC RADIANT ANALYST Office Visit Department of Family Medicine, [facility], in [place], [place] [address] [phone] Rhett Montes De Oca M.D. [address] [place] [phone] 10/07/2024 7:15 AM EPIC RADIANT ANALYST Appointment Department of Radiology, [facility], in [place], [place] [address] [place] [phone] Theresa Pandya P.A.-C. 200 [place] [phone] 10/07/2024 8:00 AM EPIC RADIANT ANALYST Office Visit Division of Trauma Critical Care and General Surgery in [address] [phone] Theresa Pandya P.A.-C. [address] [place] [phone] 10/13/2024 10:00 AM EPIC RADIANT ANALYST Appointment Department of Radiology, [facility] in [address] [phone] Ce Braxton P.A.-C., M.S. [address] [place] [phone] Discharge Disposition: Home or Self Care 10/13/2024 11:00 AM EPIC RADIANT ANALYST Office Visit Department of Orthopedic Surgery in [address] [phone] Ce Braxton P.A.-C., M.S. [address] [place] [phone] documented as of this encounter Visit Diagnoses Not on filedocumented in this encounter Care Teams Psychologist Social Relationship Specialty Start Date End Date Tiana Ma M.D. [address] [place] [phone] PCP - General Family Medicine 09/22/24 documented as of this encounter
--- OUTSIDE RECORDS SUMMARY | 2024-09-30 23:53 | XMS_ITS | Encounter Summary ---
Author Organization [facility] Address [address] [place] [address] Care Team Providers Care Numerical Control Tool Programmer Name Role Phone Tinaa Ma M.D. Primary Care Provider [phone] Reason for Referral * Outpatient (Routine) - Authorized Specialty Diagnoses / Procedures Referred By Contac t Referred To Contact Trauma Critical Care and General Surgery Diagnoses . Theresa Pandya P.A.-C. [address] [place] [address] Phone: tel: fax: [facility] Referral ID Status Reason Start Date Expiration Date V isits Requested Visits Authorized [id number] Authorized 09/22/2024 03/24/2026 1 1 CY VALUE CALCULATOR * Outpatient (Routine) - Authorized Specialty Diagnoses / Procedures Referred By Contac t Referred To Contact Diagnoses Fracture Rib Multiple Closed Initial Left Pneumothorax Trauma Initial Contusion Lung Initial Left Procedures DX Chest AP or PA and Lateral 2 Views Theresa Pandya P.A.-C. [address] [place] [address] Phone: tel: fax: [facility] Referral ID Status Reason Start Date Expiration Date V isits Requested Visits Authorized [id number] Authorized 09/22/2024 09/22/2025 1 1 CY VALUE CALCULATOR Reason for Visit * Reason Onset Date Comments Post Hospital Follow-up 09/22/2024 Rib fx f /u Encounter Details Date Type Department Care Team (Latest Contact Info) Description 09/22/2024 Clinical Communication Division of Trauma Critical Care and General Surgery in [place], [place] [address] [place] [phone] Theresa Pandya P.A.-C. [address] [place] [phone] Post Hospital Follow-up (Rib fx f/u) Social History Tobacco Use Types Packs/Day Years Used Date Smoking Tobacco: Some Days Cigarettes Smokeless Tobacco: Never Comments:socially Alcohol Use Standard Drinks/Week Comments No 0 (1 standard drink = 0.6 oz pur e alcohol) [facility] Utilities Answer Date Recorded In the past 12 months has [employer], gas, oil, or water [employer] threatened to shut off services in your [...] your living situation today? I have a [facility] place to live 09/21/2024 Sex and Gender Information Value Date Recorded Sex Assigned at Not on file Legal Sex Male 7:15 PM POLICY VALUE CALCULATOR Gender Identity Not on file Sexual Orientation Not on file documented as of this encounter Plan of Treatment Upcoming Encounters Date Type Department Care Team (Late st Contact Info) Description 10/06/2024 10:30 AM POLICY VALUE CALCULATOR Office Visit Department of Family Medicine, [facility], in [place], [place] [address] [phone] Rhett Montes De Oca M.D. [address] [phone] 10/07/2024 7:15 AM POLICY VALUE CALCULATOR Appointment Department of Radiology, [facility] in [address] [phone] Theresa Pandya, P.A.-CNeri [address] [place] [phone] 10/07/2024 8:00 AM POLICY VALUE CALCULATOR Office Visit Division of Trauma Critical Care and General Surgery in [address] [phone] Theresa Pandya, P.A.-CNeri [address] [place] [phone] 10/13/2024 10:00 AM POLICY VALUE CALCULATOR Appointment Department of Radiology, [facility], in [place], [place] [address] [place] [phone] Ce Braxton P.A.-C., M.S. [address] [place] [phone] Discharge Disposition: Home or Self Care 10/13/2024 11:00 AM POLICY VALUE CALCULATOR Office Visit Department of Orthopedic Surgery in [place], [place] [address] [place] [phone] Ce Braxton P.A.-C., M.S. [address] [place] [phone] Scheduled Orders Name Type Priority Associated Diagnoses [...] Left documented in this encounter Care Teams Numerical Control Tool Programmer Relationship Specialty Start Date End Date Tiana Ma M.D. [address] [place] [phone] PCP - General Family Medicine 09/22/24 documented as of this encounter
--- OUTSIDE RECORDS SUMMARY | 2024-09-30 23:53 | XMS_ITS | Encounter Summary ---
Author Organization [facility] Address [address] [place] [address] Care Team Providers Care Assistant Drafter Name Role Phone Tiana Ma M.D. Primary Care Provider [phone] Reason for Visit * Reason Onset Date Comments Rx Prior Authorization 09/22/2024 oxyCODONE IR tablet 5 mg (Roxicodone) Encounter Details Date Type Department Care Team (Latest Contact Info) Description 09/22/2024 Clinical Communication Division of Trauma Critical Care and General Surgery in [place], [place] [address] [place] [phone] Theresa Pandya P.A.-C. [address] [place] [phone] Rx Prior Authorization (oxyCODONE IR tablet 5 mg (Roxicodone)/) Social History Tobacco Use Types Packs/Day Years Used Date Smoking Tobacco: Some Days Cigarettes Smokeless Tobacco: Never Comments:socially Alcohol Use Standard Drinks/Week Comments No 0 (1 standard drink = 0.6 oz pur e alcohol) [facility] Utilities Answer Date Recorded In [...] your living situation today? I have a [facility] place to live 09/21/2024 Sex and Gender Information Value Date Recorded Sex Assigned at Not on file Legal Sex Male 7:15 PM TEST AUTOMATION ARCHITECT Gender Identity Not on file Sexual Orientation [...] sent in or called and dictated at [phone]. Thank you AUTOMATION ARCHITECT documented in this encounter Plan of Treatment Upcoming Encounters Date Type Department Care Team (Late st Contact Info) Description 10/06/2024 10:30 AM TEST AUTOMATION ARCHITECT Office Visit Department of Family Medicine, [facility], in [place], [place] [address] [place] [phone] Rhett Montes De Oca M.D. [address] [place] [phone] 10/07/2024 7:15 AM TEST AUTOMATION ARCHITECT Appointment Department of Radiology, [facility] in [address] [phone] Theresa Pandya P.A.-C. [address] [place] [phone] 10/07/2024 8:00 AM TEST AUTOMATION ARCHITECT Office Visit Division of Trauma Critical Care and General Surgery in [address] [phone] Theresa Pandya P.A.-C. [address] [place] [phone] 10/13/2024 10:00 AM TEST AUTOMATION ARCHITECT Appointment Department of Radiology, [facility] in [address] [phone] Ce Braxton P.A.-C., M.S. [address] [place] [phone] Discharge Disposition: Home or Self Care 10/13/2024 11:00 AM TEST AUTOMATION ARCHITECT Office Visit Department of Orthopedic Surgery in [address] [phone] Ce Braxton P.A.-C., M.S. [address] [place] [phone] documented as of this encounter Visit Diagnoses Not on filedocumented in this encounter Care Teams Assistant Drafter Relationship Specialty Start Date End Date Tiana Ma M.D. [address] [place] [phone] PCP - General Family Medicine 09/22/24 documented as of this encounter
--- OUTSIDE RECORDS SUMMARY | 2024-09-30 23:53 | XMS_ITS | Clinical Summary ---
Author Organization [employer] [facility] Address [place], [place] [address] Care Team Providers Care Service Or Work Dispatcher Chief Name Role Phone Pcp, No Primary Care Provider Unavailabl e Allergies No known active allergies Medications Medication Sig Dispensed Refills Start Date End Date Status Amphetamine-Dextroamphe tamine (ADDERALL) 30 mg tablet Take 35 mg by mouth once daily. Active Encounters Date Type Department Care Team Description 09/21/2024 8:31 AM SOAP INSPECTOR - 09/21/2024 11:31 AM SOAP INSPECTOR Emergency [facility] [address], [place] [address] Mo Loo MD Trauma (Primary Dx); Closed [...] Comments Blood Pressure 141/96 09/21/2024 11:20 AM SOAP INSPECTOR Pulse 103 09/21/2024 11:20 AM SOAP INSPECTOR Temperature 36.5 C (97.7 F) 09/21/2024 8:34 AM SOAP INSPECTOR Respiratory Rate 17 09/21/2024 8:34 AM SOAP INSPECTOR Oxygen Saturation 95% 09/21/2024 11:20 AM SOAP INSPECTOR Inhaled Oxygen Concentration - - Weight 74.8 kg (165 lb) 09/21/2024 8:34 AM SOAP INSPECTOR Height 180.3 cm (5' 11) 09/21/2024 8:34 AM SOAP INSPECTOR Body Mass Index 23.01 09/21/2024 8:34 AM SOAP INSPECTOR Plan of Treatment Not on file Procedures Procedure Name Priority Date/Time Associated Diagnosis Comments XR SHOULDER 3 VIEWS LEFT STAT 09/21/2024 9:[address] CHEST ABDOMEN PELVIS W STAT 09/21/2024 9:[address] SPINE CERVICAL WO STAT 09/21/2024 9:16 AM SOAP INSPECTOR XR ANKLE 3 VIEWS LEFT STAT 09/21/2024 8:57 AM SOAP INSPECTOR CBC WITH AUTO DIFFERENTIAL STAT 09/21/2024 8:30 AM SOAP INSPECTOR HEPATIC FUNCTION PANEL STAT 09/21/2024 8:30 AM SOAP INSPECTOR BASIC METABOLIC PANEL STAT 09/21/2024 8:30 AM SOAP INSPECTOR PROTIME-INR STAT 09/21/2024 8:30 AM SOAP INSPECTOR CBC WITH AUTO DIFFERENTIAL STAT 09/21/2024 8:30 AM SOAP INSPECTOR from Last 3 Months Results * XR SHOULDER 3 VIEWS LEFT (09/21/2024 9:27 AM SOAP INSPECTOR) Anatomical Region Laterality Modality SHOULDERS, SHOULDER L Digital Ra diography Mo Loo MD GENERAL IMAGING * CT CHEST ABDOMEN PELVIS W (09/21/2024 9:16 AM SOAP INSPECTOR) Anatomical Region Laterality Modality Abdomen, Pelvis, AORTA, LIVER, SPLEEN, CHEST Computed Tomography Mo Loo MD CT * CT SPINE CERVICAL WO (09/21/2024 9:16 AM SOAP INSPECTOR) Anatomical Region Laterality Modality CERVICAL SPINE, NECK, Spine Comp uted Tomography Mo Loo MD CT * XR ANKLE 3 VIEWS LEFT (09/21/2024 8:57 AM SOAP INSPECTOR) Anatomical Region Laterality Modality ANKLES, ANKLE L Digital Radiogra phy Mo Loo MD GENERAL IMAGING * CBC WITH AUTO DIFFERENTIAL (09/21/2024 8:30 AM SOAP INSPECTOR) WHITE BLOOD COUNT 10.2 4.5 - 11.0 thou/cu mm 09/21/2024 9:03 AM [facility] RED BLOOD COUNT 4.99 4.30 - 5.90 mil/cu mm 09/21/2024 9:03 AM [facility] HEMOGLOBIN 15.3 13.5 - 17.5 g/dL 09/21/2024 9:03 AM [facility] HEMATOCRIT 44.9 37.0 - 53.0 % 09/21/2024 9:03 AM [facility] MCV 90 80 - 100 fL 09/21/2024 9:03 AM [facility] MCH 30.7 26.0 - 34.0 pg 09/21/2024 9:03 AM [facility] MCHC 34.1 32.0 - 36.0 g/dL 09/21/2024 9:03 AM [facility] RDW 12.4 11.5 - 15.5 % 09/21/2024 9:03 AM [facility] PLATELET COUNT 306 140 - 440 thou/cu mm 09/21/2024 9:03 AM [facility] MPV 9.8 6.5 - 11.0 fL 09/21/2024 9:03 AM [facility] % NEUT 67.3 % 09/21/2024 9:03 AM [facility] % LYMPH 23.0 % 09/21/2024 9:03 AM [facility] % MONO 8.1 % 09/21/2024 9:03 AM [facility] % EOS 1.1 % 09/21/2024 9:03 AM [facility] % BASO 0.5 % 09/21/2024 9:03 AM [facility] ABSOLUTE NEUTROPHILS 6.9 1.7 - 7.0 thou/cu mm 09/21/2024 9:03 AM [facility] ABSOLUTE LYMPHOCYTES 2.4 0.9 - 2.9 thou/cu mm 09/21/2024 9:03 AM [facility] ABSOLUTE MONOCYTES 0.8 <0.9 thou/cu mm 09/21/2024 9:03 AM [facility] ABSOLUTE EOSINOPHILS 0.1 <0.5 thou/cu mm 09/21/2024 9:03 AM [facility] ABSOLUTE BASOPHILS 0.1 <0.3 thou/cu mm 09/21/2024 9:03 AM [facility] Blood BLOOD SPECIMEN / Unknown IV Start / Unknown 09/21/2024 8:30 AM SOAP INSPECTOR 09/21/2024 8:56 AM SOAP INSPECTOR Mo Loo MD HEMATOLOGY Performing Organization Address City/State/[facility] Co de Phone Number [facility] [address] [phone] * PROTIME-INR (09/21/2024 8:30 AM SOAP INSPECTOR) INR 1.1 <1.3 09/21/2024 9:07 AM [facility] PROTIME 12.4 10.6 - 12.4 sec 09/21/2024 9:07 AM [facility] Blood BLOOD SPECIMEN / Unknown IV Start / Unknown 09/21/2024 8:30 AM SOAP INSPECTOR 09/21/2024 8:56 AM SOAP INSPECTOR Narrative [facility] - 09/21/2024 9:07 AM SOAP INSPECTOR Therapeutic Range 2.0-3.0 for most anticoagulated patients [...] Mo Loo MD HEMATOLOGY Performing Organization Address [facility] de Phone Number [address] [phone] * (ABNORMAL) HEPATIC FUNCTION PANEL (09/21/2024 8:30 AM SOAP INSPECTOR) [facility] ALBUMIN 4.9 4.0 - 4.9 g/dL 09/21/2024 9:13 AM [facility] PROTEIN,TOTAL 7.6 6.0 - 8.0 g/dL 09/21/2024 9:13 AM [facility] BILIRUBIN,TOTAL 0.7 0.0 - 1.2 mg/dL 09/21/2024 9:13 AM [facility] BILIRUBIN,DIRECT 0.3(H) 0.0 - 0.2 mg/dL 09/21/2024 9:13 AM [facility] BILIRUBIN,INDIRE CT 0.4 0.2 - 0.8 mg/dL 09/21/2024 9:13 AM [facility] ALK PHOSPHATASE 50 40 - 129 IU/L 09/21/2024 9:13 AM [facility] ALT (SGPT) 92(H) 10 - 50 IU/L 09/21/2024 9:13 AM [facility] AST (SGOT) 49 10 - 50 IU/L 09/21/2024 9:13 AM [facility] Blood BLOOD SPECIMEN / Unknown IV Start / Unknown 09/21/2024 8:30 AM SOAP INSPECTOR 09/21/2024 8:56 AM [facility] Mo Loo MD CHEMISTRY Performing Organization Address [facility] de Phone Number [address] [phone] * (ABNORMAL) BASIC METABOLIC PANEL (09/21/2024 8:30 AM [facility]) SODIUM 140 136 - 145 mmol/L 09/21/2024 9:13 AM [facility] POTASSIUM 3.8 3.5 - 5.1 mmol/L 09/21/2024 9:13 AM [facility] CHLORIDE 101 98 - 107 mmol/L 09/21/2024 9:13 AM [facility] CO2,TOTAL 24 22 - 29 mmol/L 09/21/2024 9:13 AM [facility] ANION GAP 15 5 - 18 09/21/2024 9:13 AM [facility] GLUCOSE 113(H) 70 - 99 mg/dL 09/21/2024 9:13 AM [facility] CALCIUM 9.3 8.8 - 10.4 mg/dL 09/21/2024 9:13 AM [facility] Comment: Reference ranges for this test were updated on 09/06/2024 to reflect our healthy population more accurately. Reference range changes are not retroactively applied to results, but previous results using the same methodology can be interpreted in the context of the new reference range. BUN 18 6 - 20 mg/dL 09/21/2024 9:13 AM [facility] CREATININE 1.06 0.70 - 1.20 mg/dL 09/21/2024 9:13 AM [facility] BUN/CREAT RATIO 17 10 - 20 9:13 AM [facility] eGFR >90 >90 mL/min/1.7 3m2 09/21/2024 9:13 AM [facility] Comment:As of 2022, eG FR is calculated by the CKD-EPI creatinine equation without race adjustment. eGFR can be influenced by muscle mass, exercise, and diet. The reported eGFR is an estimation only and is only applicable if the renal function is stable. Blood BLOOD SPECIMEN / Unknown IV Start / Unknown 09/21/2024 8:30 AM SOAP INSPECTOR 09/21/2024 8:56 AM [facility] Mo Loo MD CHEMISTRY [facility] [address] [place]EROS [phone] from Last 3 Months Advance Directives * Full Code (Latest Code Status on File) Date Activated Date Inactivated Comments 01/18/2010 9:02 AM 01/18/2010 4:04 PM Care Teams Service Or Work Dispatcher Chief Relationship Specialty Start Date End Date Pcp, No . PCP - General 03/09/16
--- OUTSIDE RECORDS SUMMARY | 2024-09-30 23:53 | XMS_ITS | Clinical Summary ---
Author Organization [facility] Address [address] [place] [address] Care Team Providers Care Rotary Helper Name Role Phone Tiana Ma M.D. Primary Care Provider Source Comments Patient records contain information from all sites at [facility]. For routine questions regarding patient records, call [phone] during business hours, M-F 8:00 AM - 5:00 PM Central Time. Record requests for emergency care only can be directed to [phone] at any time.[facility] Allergies No known active allergies Medications acetaminophen [...] Trauma Critical Care and General Surgery in [address] [phone] Florentin Anderson P.A.-C. 09/22/2024 Clinical Communication Division of Trauma Critical Care and General Surgery in [address] [phone] Theresa Pandya P.A.-C. Rx Prior Authorization (oxyCODONE IR tablet 5 mg (Roxicodone)/) 09/22/2024 Orders Only Department of Orthopedic Surgery in [address] [phone] Ce Braxton P.A.-C., M.S. Fracture Scapula Body Nondisplaced Closed Initial Left (Primary Dx) 09/22/2024 Clinical Communication Division of Trauma Critical Care and General Surgery in [address] [phone] Theresa Pandya P.A.-C. Post Hospital Follow-up (Rib fx f/u) 09/21/2024 12:15 PM RETAIL LOSS PREVENTION INVESTIGATOR - 09/22/2024 3:21 PM RETAIL LOSS PREVENTION INVESTIGATOR Hospital Encounter [facility], [facility], Fourth Floor [address] [place] [phone] Dayday Harmon D.O. Vu, Trang N, M.D. Sawyer, Mark D, M.D. Charline Harris M.D., M.S. Pneumothorax Trauma Initial (Primary Dx); Fracture Rib Multiple Closed Initial Left; Fracture Scapula Body Nondisplaced Closed Initial Left; Contusion Lung Initial Left Discharge Disposition: Home or Self Care 09/21/2024 8:27 AM RETAIL LOSS PREVENTION INVESTIGATOR - 09/21/2024 11:59 PM RETAIL LOSS PREVENTION INVESTIGATOR Emergency [facility] [address] [place] [phone] Fracture Rib Multiple Closed Initial Left (Primary [...] drink = 0.6 oz pur e alcohol) [facility] Utilities Answer Date Recorded In the past 12 months has e [employer], gas, oil, or water [employer] threatened to shut off services in your [...] your living situation today? I have a [facility] place to live 09/21/2024 Sex and Gender Information Value Date Recorded Sex Assigned at Not on file Legal Sex Male 7:15 PM RETAIL LOSS PREVENTION INVESTIGATOR Gender Identity Not on file Sexual Orientation Not on file Last Filed Vital Signs Vital Sign Reading Time Taken Comments Blood Pressure 156/98 09/22/2024 7:55 AM RETAIL LOSS PREVENTION INVESTIGATOR Pulse 93 09/22/2024 5:15 AM RETAIL LOSS PREVENTION INVESTIGATOR Temperature 36.6 C (97.9 F) 09/22/2024 7:55 AM RETAIL LOSS PREVENTION INVESTIGATOR Respiratory Rate 18 09/22/2024 12:1 4 PM RETAIL LOSS PREVENTION INVESTIGATOR Oxygen Saturation 100% 09/22/2024 7:55 AM RETAIL LOSS PREVENTION INVESTIGATOR Inhaled Oxygen Concentration - - Weight 77.4 kg (170 lb 10.2 oz) 09/21/2024 3:00 PM RETAIL LOSS PREVENTION INVESTIGATOR Height 180.3 cm (5' 11) 09/21/2024 3:00 PM RETAIL LOSS PREVENTION INVESTIGATOR Body Mass Index 23.8 09/21/2024 3:00 PM RETAIL LOSS PREVENTION INVESTIGATOR Plan of Treatment Upcoming Encounters Date Type Department Care Team (Late st Contact Info) Description 10/06/2024 10:30 AM RETAIL LOSS PREVENTION INVESTIGATOR Office Visit Department of Family Medicine, [facility], in [place], [place] [address] [place] [phone] Rhett Montes De Oca M.D. [address] [place] [phone] 10/07/2024 7:15 AM RETAIL LOSS PREVENTION INVESTIGATOR Appointment Department of Radiology, [facility] in [address] [phone] Theresa Pandya P.A.-C. [address] [place] [phone] 10/07/2024 8:00 AM RETAIL LOSS PREVENTION INVESTIGATOR Office Visit Division of Trauma Critical Care and General Surgery in [address] [phone] Theresa Pandya P.ANeri-C. [address] [place] [phone] 10/13/2024 10:00 AM RETAIL LOSS PREVENTION INVESTIGATOR Appointment Department of Radiology, [facility] in [address] [phone] Ce Braxton P.A.-C., M.S. [address] [place] [phone] Discharge Disposition: Home or Self Care 10/13/2024 11:00 AM RETAIL LOSS PREVENTION INVESTIGATOR Office Visit Department of Orthopedic Surgery in [address] [phone] Ce Braxton P.A.-C., M.S. [address] [place] [phone] Health Maintenance Due Date Last Done Comments [...] Comments CRITICAL CARE Routine 09/22/2024 3:21 PM RETAIL LOSS PREVENTION INVESTIGATOR DX CHEST AP OR PA AND LATERAL 2 VIEWS RAD - Timed (for specific dates/times) 09/22/2024 2:09 PM RETAIL LOSS PREVENTION INVESTIGATOR DX CHEST PORTABLE 1 VIEW RAD - Routine (most inpatients and all outpatients) 09/22/2024 5:29 AM RETAIL LOSS PREVENTION INVESTIGATOR CBC WITH DIFFERENTIAL, B Routine 09/21/2024 8:44 PM RETAIL LOSS PREVENTION INVESTIGATOR BASIC METABOLIC PANEL, S/P Routine 09/21/2024 8:44 PM RETAIL LOSS PREVENTION INVESTIGATOR DX ABDOMEN 1 VIEW RAD - Routine (most inpatients and all outpatients) 09/21/2024 7:37 PM RETAIL LOSS PREVENTION INVESTIGATOR DX CHEST AP OR PA AND LATERAL 2 VIEWS RAD - Emergent (Fastest; for the most critically ill patients) 09/21/2024 7:37 PM RETAIL LOSS PREVENTION INVESTIGATOR TROPONIN T, 2H/6H REFLEX, 5TH GEN, P Timed 09/21/2024 6:25 PM RETAIL LOSS PREVENTION INVESTIGATOR DX CHEST PORTABLE 1 VIEW RAD - Timed (for specific dates/times) 09/21/2024 5:58 PM RETAIL LOSS PREVENTION INVESTIGATOR ADULT OXYGEN THERAPY Routine 09/21/2024 5:01 PM RETAIL LOSS PREVENTION INVESTIGATOR ADULT OXYGEN THERAPY Routine 09/21/2024 5:01 PM RETAIL LOSS PREVENTION INVESTIGATOR ADULT OXYGEN THERAPY Routine 09/21/2024 5:01 PM RETAIL LOSS PREVENTION INVESTIGATOR DX CHEST PORTABLE 1 VIEW RAD - Emergent (Fastest; for the most critically ill patients) 09/21/2024 4:43 PM RETAIL LOSS PREVENTION INVESTIGATOR LACTATE, B/P STAT 09/21/2024 4:27 PM RETAIL LOSS PREVENTION INVESTIGATOR MAGNESIUM, S STAT 09/21/2024 4:27 PM RETAIL LOSS PREVENTION INVESTIGATOR BASIC METABOLIC PANEL, S/P STAT 09/21/2024 4:27 PM RETAIL LOSS PREVENTION INVESTIGATOR CBC WITHOUT DIFFERENTIAL, B STAT 09/21/2024 4:27 PM RETAIL LOSS PREVENTION INVESTIGATOR TROPONIN T, BASELINE, 5TH GEN, P STAT 09/21/2024 4:27 PM RETAIL LOSS PREVENTION INVESTIGATOR ECG STAT 09/21/2024 4:18 PM RETAIL LOSS PREVENTION INVESTIGATOR ECG STAT 09/21/2024 1:28 PM RETAIL LOSS PREVENTION INVESTIGATOR CT LUMBAR SPINE WITHOUT IV CONTRAST RAD - Emergent (Fastest; for the most critically ill patients) 09/21/2024 1:05 PM RETAIL LOSS PREVENTION INVESTIGATOR CT THORACIC SPINE WITHOUT IV CONTRAST RAD - Emergent (Fastest; for the most critically ill patients) 09/21/2024 1:05 PM RETAIL LOSS PREVENTION INVESTIGATOR CT MAXILLOFACIAL WITHOUT IV CONTRAST RAD - Routine (most inpatients and all outpatients) 09/21/2024 1:05 PM RETAIL LOSS PREVENTION INVESTIGATOR CT NECK ANGIOGRAM WITH IV CONTRAST RAD - Emergent (Fastest; for the most critically ill patients) 09/21/2024 1:05 PM RETAIL LOSS PREVENTION INVESTIGATOR LACTATE, POCT, B STAT 09/21/2024 12:3 4 PM RETAIL LOSS PREVENTION INVESTIGATOR VBG & LYTES CG8+, POCT, B STAT 09/21/2024 12:33 PM RETAIL LOSS PREVENTION INVESTIGATOR THROMBOELASTOGRAPH, KAOLIN, B STAT 09/21/2024 12:32 PM RETAIL LOSS PREVENTION INVESTIGATOR TYPE AND SCREEN STAT 09/21/2024 12:32 PM RETAIL LOSS PREVENTION INVESTIGATOR PROTHROMBIN TIME (PT), P STAT 09/21/2024 12:32 PM RETAIL LOSS PREVENTION INVESTIGATOR CBC WITH DIFFERENTIAL, B STAT 09/21/2024 12:32 PM RETAIL LOSS PREVENTION INVESTIGATOR LIPASE, S/P STAT 09/21/2024 12:32 PM RETAIL LOSS PREVENTION INVESTIGATOR ETHANOL, S STAT 09/21/2024 12:32 PM RETAIL LOSS PREVENTION INVESTIGATOR BASIC METABOLIC PANEL, S/P STAT 09/21/2024 12:32 PM RETAIL LOSS PREVENTION INVESTIGATOR DX CHEST PORTABLE 1 VIEW RAD - Emergent (Fastest; for the most critically ill patients) 09/21/2024 12:29 PM RETAIL LOSS PREVENTION INVESTIGATOR DX SHOULDER LEFT 2+ VIEWS RAD - Semiurgent (Fast; most ED patients; some inpatients) 09/21/2024 9:25 AM RETAIL LOSS PREVENTION INVESTIGATOR CT ABDOMEN PELVIS WITH IV CONTRAST RAD - Semiurgent (Fast; most ED patients; some inpatients) 09/21/2024 9:20 AM RETAIL LOSS PREVENTION INVESTIGATOR CT CHEST WITH IV CONTRAST RAD - Semiurgent (Fast; most ED patients; some inpatients) 09/21/2024 9:19 AM RETAIL LOSS PREVENTION INVESTIGATOR CT HEAD WITHOUT IV CONTRAST RAD - Semiurgent (Fast; most ED patients; some inpatients) 09/21/2024 9:18 AM RETAIL LOSS PREVENTION INVESTIGATOR CT CERVICAL SPINE WITHOUT IV CONTRAST RAD - Semiurgent (Fast; most ED patients; some inpatients) 09/21/2024 9:17 AM RETAIL LOSS PREVENTION INVESTIGATOR DX ANKLE LEFT 3+ VIEWS RAD - Semiurgent (Fast; most ED patients; some inpatients) 09/21/2024 9:07 AM RETAIL LOSS PREVENTION INVESTIGATOR from Last 3 Months Results * Critical Care (09/22/2024 3:21 PM RETAIL LOSS PREVENTION INVESTIGATOR) Narrative Dayday Harmon D.O. - 09/22/2024 3:21 PM RETAIL LOSS PREVENTION INVESTIGATOR Dayday Harmon D.O. 09/23/2024 7:29 AM Critical [...] and Lateral 2 Views (09/22/2024 2:09 PM RETAIL LOSS PREVENTION INVESTIGATOR) Only the most recent of2 resultswithin the time period is included. Anatomical Region Laterality Modality Chest, Thoracic RST LOS, Tho racic ARZ LOS, Thoracic FLA LOS N/A Digital Radiography Impressions 09/22/2024 2:17 PM RETAIL LOSS PREVENTION INVESTIGATOR Tiny right pneumothorax is slightly smaller than earlier this morning. No visible pneumothorax on the left. Multiple acute and displaced left upper rib fractures. Narrative 09/22/2024 2:17 PM RETAIL LOSS PREVENTION INVESTIGATOR EXAM: DX CHEST AP OR PA AND LATERAL 2 VIEWS Procedure Note Gallo Martins M.D. - 09/22/2024 EXAM: DX CHEST AP OR PA AND LATERAL 2 VIEWS IMPRESSION: Tiny right pneumothorax is slightly smaller than earlier this morning. Novisible pneumothorax on the left. Multiple acute and displaced left upperrib fractures. Theresa Pandya P.A.-C. [facility] DIAGNOSTIC IMAGING PROCEDURES Final Result * DX Chest Portable 1 View (09/22/2024 5:29 AM RETAIL LOSS PREVENTION INVESTIGATOR) Only the most recent of4 resultswithin the time period is included. Anatomical Region Laterality Modality Chest, Thoracic RST LOS, Tho racic ARZ LOS, Thoracic FLA LOS N/A Digital Radiography Impressions 09/22/2024 5:40 AM RETAIL LOSS PREVENTION INVESTIGATOR Compared to 09/21/2024, slightly decreased airspace opacities left upper lung. Persistent trace left apical pneumothorax. Stable small right apical pneumothorax. Left-sided rib fractures. No significant pleural effusion. Narrative 09/22/2024 5:40 AM RETAIL LOSS PREVENTION INVESTIGATOR EXAM: DX CHEST PORTABLE 1 VIEW Procedure Note Mnaas Herrera M.D. - 09/22/2024 EXAM: DX CHEST PORTABLE 1 VIEW IMPRESSION: Compared to 09/21/2024, slightly decreased airspace opacities left upperlung. Persistent trace left apical pneumothorax. Stable small right apicalpneumothorax. Left-sided rib fractures. No significant pleural effusion. Jose G tian M.D. IMG DIAGNOSTIC IMAGING PROCEDURES Final Result * (ABNORMAL) CBC with Differential, Blood (09/21/2024 8:44 PM RETAIL LOSS PREVENTION INVESTIGATOR) Only the most recent of2 resultswithin the time period is included. Hemoglobin 15.0 13.2 - 16.6 g/dL 09/21/2024 9:47 PM RETAIL LOSS PREVENTION INVESTIGATOR DHPM Hematocrit 43.3 38.3 - 48.6 % 09/21/2024 9:47 PM RETAIL LOSS PREVENTION INVESTIGATOR DHPM Erythrocytes 4.83 4.35 - 5.65 x10(12)/L 09/21/2024 9:47 PM RETAIL LOSS PREVENTION INVESTIGATOR DHPM MCV 89.6 78.2 - 97.9 fL 09/21/2024 9:47 PM RETAIL LOSS PREVENTION INVESTIGATOR DHPM RBC Distrib Width 11.9 11.8 - 14.5 % 09/21/2024 9:47 PM RETAIL LOSS PREVENTION INVESTIGATOR DHPM Platelet Count 280 135 - 317 x10(9)/L 09/21/2024 9:47 PM RETAIL LOSS PREVENTION INVESTIGATOR DHPM Leukocytes 13.0(H) 3.4 - 9.6 x10(9)/L 09/21/2024 9:47 PM RETAIL LOSS PREVENTION INVESTIGATOR DHPM Neutrophils 10.31(H) 1.56 - 6.45 x10(9)/L 09/21/2024 9:47 PM RETAIL LOSS PREVENTION INVESTIGATOR DHPM Lymphocytes 1.13 0.95 - 3.07 x10(9)/L 09/21/2024 9:47 PM RETAIL LOSS PREVENTION INVESTIGATOR DHPM Monocytes 1.54(H) 0.26 - 0.81 x10(9)/L 09/21/2024 9:47 PM RETAIL LOSS PREVENTION INVESTIGATOR DHPM Eosinophils <0.03 0.03 - 0.48 x10(9)/L 09/21/2024 9:47 PM RETAIL LOSS PREVENTION INVESTIGATOR DHPM Basophils <0.03 0.01 - 0.08 x10(9)/L 09/21/2024 9:47 PM RETAIL LOSS PREVENTION INVESTIGATOR DHPM Blood (Blood, Venous) 09/21/2024 8:44 PM RETAIL LOSS PREVENTION INVESTIGATOR 09/21/2024 9:29 PM RETAIL LOSS PREVENTION INVESTIGATOR us Travis Fermin P.A.-C. LAB BLOOD ADD-ON Final Res ult [facility] [address] [place] [address], [facility] DHPM [facility][note 2] [address] [place] [address] * (ABNORMAL) Basic Metabolic Panel (09/21/2024 8:44 PM RETAIL LOSS PREVENTION INVESTIGATOR) Only the most recent of3 resultswithin the time period is included. Pathologist [facility] Potassium, S 4.2 3.6 - 5.2 mmol/L 09/21/2024 9:59 PM RETAIL LOSS PREVENTION INVESTIGATOR DTL Sodium, S 134(L) 135 - 145 mmol/L 09/21/2024 9:59 PM RETAIL LOSS PREVENTION INVESTIGATOR DTL Chloride, S 98 98 - 107 mmol/L 09/21/2024 9:59 PM RETAIL LOSS PREVENTION INVESTIGATOR DTL Bicarbonate, S 21(L) 22 - 29 mmol/L 09/21/2024 9:59 PM RETAIL LOSS PREVENTION INVESTIGATOR DTL Anion Gap 15 7 - 15 09/21/2024 9:59 PM RETAIL LOSS PREVENTION INVESTIGATOR DTL BUN (Blood Urea Nitrogen), S 13 8 - 24 mg/dL 09/21/2024 9:59 PM RETAIL LOSS PREVENTION INVESTIGATOR DTL Creatinine 0.85 0.74 - 1.35 mg/dL 09/21/2024 9:59 PM RETAIL LOSS PREVENTION INVESTIGATOR DTL Estimated GFR (eGFR) >90 >=60 mL/min/BSA 09/21/2024 9:59 PM RETAIL LOSS PREVENTION INVESTIGATOR DTL Comment: Estimated GFR calculated using the 2020 CKD_EPI creatinine equation. Calcium, Total, S 9.3 8.6 - 10.0 mg/dL 09/21/2024 9:59 PM RETAIL LOSS PREVENTION INVESTIGATOR DTL Glucose, S 120 70 - 140 mg/dL 09/21/2024 9:59 PM RETAIL LOSS PREVENTION INVESTIGATOR DTL Blood (Blood, Venous) 09/21/2024 8:44 PM RETAIL LOSS PREVENTION INVESTIGATOR 09/21/2024 9:44 PM RETAIL LOSS PREVENTION INVESTIGATOR us Travis Fermin P.A.-C. LAB BLOOD ADD-ON Final Res ult [facility] [address] [place] [address], [facility] DTL [facility][note 2] [address] [place] [address] * DX Abdomen 1 View (09/21/2024 7:37 PM RETAIL LOSS PREVENTION INVESTIGATOR) Anatomical Region Laterality Modality Abdomen, Abdominal RST LOS, Abdominal ARZ LOS, Abdominal FLA LOS N/A Digital Radiography Impressions 09/21/2024 8:25 PM RETAIL LOSS PREVENTION INVESTIGATOR No pneumoperitoneum. Contrast in the urinary bladder. Narrative 09/21/2024 8:25 PM RETAIL LOSS PREVENTION INVESTIGATOR EXAM: DX ABDOMEN 1 VIEW Procedure Note Sim Puente M.D. - 09/21/2024 EXAM: DX ABDOMEN 1 VIEW IMPRESSION: No pneumoperitoneum. Contrast in the urinary bladder. Travis Fermin P.A.-C. IMG DIAGNOSTIC IMAGING PRO CEDURES Final Result * Troponin T, 2 Hour with 6 Hour Reflex, 5th Gen (09/21/2024 6:25 PM RETAIL LOSS PREVENTION INVESTIGATOR) Troponin T, 2 hr, 5th gen <6 <=15 ng/L 09/21/2024 6:49 PM RETAIL LOSS PREVENTION INVESTIGATOR STMA 2H Delta -1 ng/L 09/21/2024 6:49 PM RETAIL LOSS PREVENTION INVESTIGATOR STMA Comment:6 hour collection no t indicated. 2H Delta Interp Not Changing 09/21/2024 6:49 PM RETAIL LOSS PREVENTION INVESTIGATOR STMA Blood 09/21/2024 6:25 PM RETAIL LOSS PREVENTION INVESTIGATOR 09/21/2024 6:29 PM RETAIL LOSS PREVENTION INVESTIGATOR Travis Fermin P.A.-C. LAB BLOOD TROPONIN Final R esult [facility] [address] [place] [address], [facility] [address] [place] [address] * Troponin T, Baseline with 2 Hour/6 Hour Reflex Biomarker Panel (09/21/2024 4:27 PM RETAIL LOSS PREVENTION INVESTIGATOR) Troponin T, Baseline, 5th gen 6 <=15 ng/L 09/21/2024 4:57 PM RETAIL LOSS PREVENTION INVESTIGATOR STMA Blood (Blood, Venous) 09/21/2024 4:27 PM RETAIL LOSS PREVENTION INVESTIGATOR 09/21/2024 4:37 PM RETAIL LOSS PREVENTION INVESTIGATOR Travis Fermin P.A.-C. LAB BLOOD TROPONIN Final R esult Performing Organization Address City/[facility]/ZIP Co de Phone Number [facility] [address] [place], [place] [address] [place] [address] [address] [place] [address] * (ABNORMAL) CBC without Differential (09/21/2024 4:27 PM RETAIL LOSS PREVENTION INVESTIGATOR) Pathologist [facility] Hemoglobin 15.2 13.2 - 16.6 g/dL 09/21/2024 4:46 PM RETAIL LOSS PREVENTION INVESTIGATOR STMA Hematocrit 44.5 38.3 - 48.6 % 09/21/2024 4:46 PM RETAIL LOSS PREVENTION INVESTIGATOR STMA Erythrocytes 4.86 4.35 - 5.65 x10(12)/L 09/21/2024 4:46 PM RETAIL LOSS PREVENTION INVESTIGATOR STMA MCV 91.6 78.2 - 97.9 fL 09/21/2024 4:46 PM RETAIL LOSS PREVENTION INVESTIGATOR STMA RBC Distrib Width 11.9 11.8 - 14.5 % 09/21/2024 4:46 PM RETAIL LOSS PREVENTION INVESTIGATOR STMA Platelet Count 277 135 - 317 x10(9)/L 09/21/2024 4:46 PM RETAIL LOSS PREVENTION INVESTIGATOR STMA Leukocytes 13.9(H) 3.4 - 9.6 x10(9)/L 09/21/2024 4:46 PM RETAIL LOSS PREVENTION INVESTIGATOR STMA Blood (Blood, Venous) 09/21/2024 4:27 PM RETAIL LOSS PREVENTION INVESTIGATOR 09/21/2024 4:37 PM RETAIL LOSS PREVENTION INVESTIGATOR Travis Fermin P.A.-C. LAB BLOOD ADD-ON Final Res ult [facility] [address] [place] [address], [facility] [address] [place] [address] * Magnesium (09/21/2024 4:27 PM RETAIL LOSS PREVENTION INVESTIGATOR) Pathologist [facility] Magnesium, P 2.1 1.7 - 2.3 mg/dL 09/21/2024 4:56 PM RETAIL LOSS PREVENTION INVESTIGATOR STMA Blood (Blood, Venous) 09/21/2024 4:27 PM RETAIL LOSS PREVENTION INVESTIGATOR 09/21/2024 4:37 PM RETAIL LOSS PREVENTION INVESTIGATOR Travis Fermin P.A.-C. LAB BLOOD ADD-ON Final Res ult Performing Organization Address [facility] Co de Phone Number [facility] [address] [place] [address], [facility] [address] [place] [address] * Lactate (09/21/2024 4:27 PM RETAIL LOSS PREVENTION INVESTIGATOR) Pathologist [facility] Lactate, P 2.2 0.5 - 2.2 mmol/L 09/21/2024 4:50 PM RETAIL LOSS PREVENTION INVESTIGATOR [facility] Blood (Blood, Venous) 09/21/2024 4:27 PM RETAIL LOSS PREVENTION INVESTIGATOR 09/21/2024 4:37 PM RETAIL LOSS PREVENTION INVESTIGATOR Travis Fermin P.A.-C. LAB BLOOD NON ADD-ON Final Result Performing Organization Address [facility] de Phone Number [facility] [address] [place] [address] * ECG 12 Lead (09/21/2024 4:18 PM RETAIL LOSS PREVENTION INVESTIGATOR) Only the most recent of2 resultswithin the time period is included. Ventricular Rate ECG/Min 70 BPM MUSE OH Interval 172 ms MUSE QRSD Interval 80 ms MUSE QT Interval 364 ms MUSE QTC Interval 393 ms MUSE P [place] 58 degrees MUSE R [place] 70 degrees MUSE T Wave [place] 65 degrees MUSE 09/21/2024 4:18 PM RETAIL LOSS PREVENTION INVESTIGATOR 09/22/2024 7:21 AM RETAIL LOSS PREVENTION INVESTIGATOR Impressions MUSE - 09/21/2024 4:24 PM RETAIL LOSS PREVENTION INVESTIGATOR Normal sinus rhythm with sinus arrhythmia ST [...] Maxillofacial without IV Contrast (09/21/2024 1:05 PM RETAIL LOSS PREVENTION INVESTIGATOR) Anatomical Region Laterality Modality Jaw, Head, Neuroradiology RS T LOS, Neuroradiology ARZ LOS, Neuroradiology FLA LOS N/A Computed Tomography, Compute d Tomography Impressions 09/21/2024 1:21 PM RETAIL LOSS PREVENTION INVESTIGATOR No acute facial fracture. Narrative 09/21/2024 1:21 PM RETAIL LOSS PREVENTION INVESTIGATOR EXAM: CT MAXILLOFACIAL WITHOUT IV CONTRAST COMPARISON: [...] Spine without IV Contrast (09/21/2024 1:05 PM RETAIL LOSS PREVENTION INVESTIGATOR) Anatomical Region Laterality Modality Lumbar Spine, Neuroradiology RST LOS, Neuroradiology ARZ LOS, Neuroradiology FLA LOS N/A Computed Tomography, Compute d Tomography Impressions 09/21/2024 1:14 PM RETAIL LOSS PREVENTION INVESTIGATOR Acute left upper rib fractures, bilateral pneumothoraces left pulmonary contusion as demonstrated on CT chest earlier today. Thoracic and lumbar spine otherwise negative. Narrative 09/21/2024 1:14 PM RETAIL LOSS PREVENTION INVESTIGATOR EXAM: CT THORACIC SPINE WITHOUT IV CONTRAST, [...] Spine without IV Contrast (09/21/2024 1:05 PM RETAIL LOSS PREVENTION INVESTIGATOR) Anatomical Region Laterality Modality Thoracic Spine, Neuroradiolo gy RST LOS, Neuroradiology ARZ LOS, Neuroradiology FLA LOS N/A Computed Tomography, Compute d Tomography Impressions 09/21/2024 1:14 PM RETAIL LOSS PREVENTION INVESTIGATOR Acute left upper rib fractures, bilateral pneumothoraces left pulmonary contusion as demonstrated on CT chest earlier today. Thoracic and lumbar spine otherwise negative. Narrative 09/21/2024 1:14 PM RETAIL LOSS PREVENTION INVESTIGATOR EXAM: CT THORACIC SPINE WITHOUT IV CONTRAST, [...] Angiogram with IV Contrast (09/21/2024 1:05 PM RETAIL LOSS PREVENTION INVESTIGATOR) Anatomical Region Laterality Modality Neck, Neuroradiology RST LOS , Neuroradiology ARZ LOS, Neuroradiology FLA LOS N/A Computed Tomography, Compute d Tomography 09/21/2024 12:5 9 PM RETAIL LOSS PREVENTION INVESTIGATOR Impressions 09/21/2024 1:20 PM RETAIL LOSS PREVENTION INVESTIGATOR 1. Carotid and vertebral arteries in the neck are patent and negative for acute traumatic injury. 2. 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 Narrative 09/21/2024 1:20 PM RETAIL LOSS PREVENTION INVESTIGATOR EXAM: CT NECK ANGIOGRAM WITH IV CONTRAST [...] saccular outpouching arising from the proximal left X5kypolin, favored to represent a small aneurysm. us Shereen EliasS. IMG CT PROCEDURES Final Res ult * (ABNORMAL) Lactate, POCT (09/21/2024 12:34 PM RETAIL LOSS PREVENTION INVESTIGATOR) [facility] Lactate, POCT 2.62(H) 0.50 - 2.20 mmol/L 09/21/2024 12:46 PM RETAIL LOSS PREVENTION INVESTIGATOR PCLX Blood (Blood, Venous) 09/21/2024 12:34 PM RETAIL LOSS PREVENTION INVESTIGATOR 09/21/2024 12:34 PM RETAIL LOSS PREVENTION INVESTIGATOR us Shereen Pacheco.S. LAB POCT ORDERABLES - DEVIC E Final Result POC [facility] [address] [place] [address], [facility] PCLX [facility] POC [address] [place] [address] * (ABNORMAL) Venous Blood Gas and Electrolytes CG8+, POCT (09/21/2024 12:33 PM RETAIL LOSS PREVENTION INVESTIGATOR) [facility] Sample Site, POCT Venstick 09/21/2024 12:46 PM RETAIL LOSS PREVENTION INVESTIGATOR PCLX Comment: ----ADDITIONAL INFORMATION---- Performed at the Point of Care pH, Venous, POCT, B 7.33 7.32 - 7.43 09/21/2024 12:46 PM RETAIL LOSS PREVENTION INVESTIGATOR PCSM Comment: ----ADDITIONAL INFORMATION---- Performed at the Point of Care pCO2, Venous, POCT, B 41 41 - 51 mm Hg 09/21/2024 12:46 PM RETAIL LOSS PREVENTION INVESTIGATOR PCSM Comment: ----ADDITIONAL INFORMATION---- Performed at the Point of Care pO2, Venous, POCT, B 63 Not Applicable mm Hg 09/21/2024 12:46 PM RETAIL LOSS PREVENTION INVESTIGATOR PCSM Comment: ----ADDITIONAL INFORMATION---- Performed at the Point of Care Base Excess, Venous, POCT, B -4 Not Applicable mmol/L 09/21/2024 12:46 PM RETAIL LOSS PREVENTION INVESTIGATOR PCSM Comment: ----ADDITIONAL INFORMATION---- Performed at the Point of Care HCO3, Venous, POCT, B 22 Not Applicable mmol/L 09/21/2024 12:46 PM RETAIL LOSS PREVENTION INVESTIGATOR PCSM Comment: ----ADDITIONAL INFORMATION---- Performed at the Point of Care Sodium, POCT, B 139 135 - 145 mmol/L 09/21/2024 12:46 PM RETAIL LOSS PREVENTION INVESTIGATOR PCLX Comment: ----ADDITIONAL INFORMATION---- Performed at the Point of Care Potassium, POCT, B 4.0 3.6 - 5.2 mmol/L 09/21/2024 12:46 PM RETAIL LOSS PREVENTION INVESTIGATOR PCLX Comment: ----ADDITIONAL INFORMATION---- Performed at the Point of Care Calcium, Ionized, POCT, B 5.10 4.65 - 5.30 mg/dL 09/21/2024 12:46 PM RETAIL LOSS PREVENTION INVESTIGATOR PCLX Comment: ----ADDITIONAL INFORMATION---- Performed at the Point of Care Glucose, POCT, B 172(H) 70 - 140 mg/dL 09/21/2024 12:46 PM RETAIL LOSS PREVENTION INVESTIGATOR PCLX Comment: ----ADDITIONAL INFORMATION---- Performed at the Point of Care Hematocrit, POCT, B 46.0 38.3 - 48.6 % 09/21/2024 12:46 PM RETAIL LOSS PREVENTION INVESTIGATOR PCLX Comment: ----ADDITIONAL INFORMATION---- Performed at the Point of Care Blood (Blood, Venous) 09/21/2024 12:33 PM RETAIL LOSS PREVENTION INVESTIGATOR 09/21/2024 12:33 PM RETAIL LOSS PREVENTION INVESTIGATOR Shereen Dubon LAB POCT ORDERABLES - DEVIC E Final Result POC [facility] [address] [place] [address], [place] PCLX [facility] P[facility] [address] [place] [address] [facility] P[facility] [address] [place] [address] * Ethanol Level, Serum (09/21/2024 12:32 PM RETAIL LOSS PREVENTION INVESTIGATOR) Ethanol, S <10 <10 mg/dL 09/21/2024 1:1 9 PM RETAIL LOSS PREVENTION INVESTIGATOR DTL Blood (Blood, Venous) 09/21/2024 12:32 PM RETAIL LOSS PREVENTION INVESTIGATOR 09/21/2024 12:58 PM RETAIL LOSS PREVENTION INVESTIGATOR Shereen PaezB.S. LAB BLOOD NON ADD-ON Final Result Performing Organization Address [facility] Co de Phone Number [facility] [address] [place], [place] [phone] [place] [address] DTL [facility] [place][note 2] [address] [place] [address] * (ABNORMAL) Thromboelastograph, Kaolin, Blood (09/21/2024 12:32 PM RETAIL LOSS PREVENTION INVESTIGATOR) R, Kaolin, TEG 3.0(L) 4.0 - 9.0 min 09/21/2024 2:05 PM RETAIL LOSS PREVENTION INVESTIGATOR STMA K, Kaolin, TEG 1.4 1.0 - 1.8 min 09/21/2024 2:05 PM RETAIL LOSS PREVENTION INVESTIGATOR STMA Angle, Kaolin, TEG 68.2 64.0 - 78.1 degrees 09/21/2024 2:05 PM RETAIL LOSS PREVENTION INVESTIGATOR [facility] MA, Kaolin, TEG 63.8 57.1 - 72.6 mm 09/21/2024 2:05 PM RETAIL LOSS PREVENTION INVESTIGATOR STMA Ly30, Kaolin, TEG 1.4 0.0 - 4.8 % 09/21/2024 2:05 PM RETAIL LOSS PREVENTION INVESTIGATOR STMA Blood (Blood, Venous) 09/21/2024 12:32 PM RETAIL LOSS PREVENTION INVESTIGATOR 09/21/2024 12:32 PM RETAIL LOSS PREVENTION INVESTIGATOR Shereen PaezB.S. LAB BLOOD NON ADD-ON Final Result Performing Organization Address [facility]/ZIP Co de Phone Number [facility] [address] [place] [address], [facility] STMA [facility] [place][note 2] [address] [place] [address] * (ABNORMAL) Prothrombin Time (PT) (09/21/2024 12:32 PM RETAIL LOSS PREVENTION INVESTIGATOR) Prothrombin Time, P 12.9(H) 9.4 - 12.5 sec 09/21/2024 12:48 PM RETAIL LOSS PREVENTION INVESTIGATOR [facility] 1.2 0.9 - 1.1 09/21/2024 12:48 PM RETAIL LOSS PREVENTION INVESTIGATOR STMA Comment: ----ADDITIONAL INFORMATION---- Standard intensity warfarin therapeutic range: 2.0 to 3.0 High intensity warfarin therapeutic range: 2.5 to 3.5 Blood (Blood, Venous) 09/21/2024 12:32 PM RETAIL LOSS PREVENTION INVESTIGATOR 09/21/2024 12:42 PM RETAIL LOSS PREVENTION INVESTIGATOR Shereen PaezB.S. LAB BLOOD ADD-ON Final Resu lt [facility] [address] [place] [address], [facility] STMA [facility] [place][note 2] [address] [place] [address] * Type and Screen (with Reflex Antibody ID) (09/21/2024 12:32 PM RETAIL LOSS PREVENTION INVESTIGATOR) Pathologist [facility]ORh B Pos Not applicable 09/21/2024 1:19 PM RETAIL LOSS PREVENTION INVESTIGATOR STRM Antibody Screen Negative Negative 09/21/2024 1:32 PM RETAIL LOSS PREVENTION INVESTIGATOR STRM Type & Screen Expiration 09/24/2024 23:59 09/21/2024 1:19 PM RETAIL LOSS PREVENTION INVESTIGATOR STRM Testing Location [place] DEFAULT 09/21/2024 12:49 PM RETAIL LOSS PREVENTION INVESTIGATOR STRM Blood (Blood, Venous) 09/21/2024 12:32 PM RETAIL LOSS PREVENTION INVESTIGATOR 09/21/2024 12:49 PM RETAIL LOSS PREVENTION INVESTIGATOR Shereen PaezB.S. LAB BLOOD BANK TEST ORDERAB LES Final Result Performing Organization Address City/[facility]/ZIP Co de Phone Number [facility] [address] [place] [address], [facility] STRM [facility] [place][note 2] [address] [place] [address] * Lipase (09/21/2024 12:32 PM RETAIL LOSS PREVENTION INVESTIGATOR) Lipase, S 30 13 - 60 U/L 09/21/2024 1: 19 PM RETAIL LOSS PREVENTION INVESTIGATOR DTL Blood (Blood, Venous) 09/21/2024 12:32 PM RETAIL LOSS PREVENTION INVESTIGATOR 09/21/2024 12:58 PM RETAIL LOSS PREVENTION INVESTIGATOR Shereen Dubon LAB BLOOD ADD-ON Final Resu lt [facility] [address] [place] [address], [place] DTFormerly named [facility] [address] [place] [address] * DX Shoulder Left 2+ Views (09/21/2024 9:25 AM RETAIL LOSS PREVENTION INVESTIGATOR) Anatomical Region Laterality Modality Upper Extremity, Shoulder, M usculoskeletal RST LOS, Musculoskeletal ARZ LOS, Muskuloskeletal FLA LOS Left Digit al Radiography Impressions 09/21/2024 9:35 AM RETAIL LOSS PREVENTION INVESTIGATOR Images are interpreted without comparison. There is [...] clavicle is intact. Narrative 09/21/2024 9:35 AM RETAIL LOSS PREVENTION INVESTIGATOR EXAM: DX SHOULDER LEFT 2+ VIEWS Procedure [...] isintact. Bertha Ferrera M.D. [facility] [place] OCEDURES Final Result * CT Abdomen Pelvis with IV Contrast (09/21/2024 9:20 AM RETAIL LOSS PREVENTION INVESTIGATOR) Anatomical Region Laterality Modality Abdomen, Pelvis, Abdominal R ST LOS, Abdominal ARZ LOS, Abdominal FLA LOS N/A Computed Tomography 09/21/2024 9:13 AM RETAIL LOSS PREVENTION INVESTIGATOR Impressions 09/21/2024 9:40 AM RETAIL LOSS PREVENTION INVESTIGATOR 1. Small right and trace left pneumothoraces. Small left hemothorax. 2. Left first through sixth rib fractures with segmental fractures of the left third, fourth and fifth ribs. Extensive left pulmonary contusion. 3. No acute traumatic injury in the abdomen or pelvis. Result discussed with BERTHA FERRERA on 09/21/2024 9:38 AM. Narrative 09/21/2024 9:40 AM RETAIL LOSS PREVENTION INVESTIGATOR EXAM: CT CHEST WITH IV CONTRAST, CT [...] Chest with IV Contrast (09/21/2024 9:19 AM RETAIL LOSS PREVENTION INVESTIGATOR) Anatomical Region Laterality Modality Chest, Thoracic RST LOS, Tho racic ARZ LOS, Thoracic ARZ LOS, Thoracic FLA LOS N/A Computed Tomography 09/21/2024 9:13 AM RETAIL LOSS PREVENTION INVESTIGATOR Impressions 09/21/2024 9:40 AM RETAIL LOSS PREVENTION INVESTIGATOR 1. Small right and trace left pneumothoraces. Small left hemothorax. 2. Left first through sixth rib fractures with segmental fractures of the left third, fourth and fifth ribs. Extensive left pulmonary contusion. 3. No acute traumatic injury in the abdomen or pelvis. Result discussed with BERTHA FERRERA on 09/21/2024 9:38 AM. Narrative 09/21/2024 9:40 AM RETAIL LOSS PREVENTION INVESTIGATOR EXAM: CT CHEST WITH IV CONTRAST, CT [...] Head without IV Contrast (09/21/2024 9:18 AM RETAIL LOSS PREVENTION INVESTIGATOR) Anatomical Region Laterality Modality Head, Neuroradiology RST LOS , Neuroradiology AR LOS, Neuroradiology [facility] LOS N/A Computed Tomography 09/21/2024 9:19 AM RETAIL LOSS PREVENTION INVESTIGATOR Impressions 09/21/2024 9:26 AM RETAIL LOSS PREVENTION INVESTIGATOR 1. No acute intracranial pathology. 2. Facial fractures appear chronic. Narrative 09/21/2024 9:26 AM RETAIL LOSS PREVENTION INVESTIGATOR EXAM: CT HEAD WITHOUT IV CONTRAST COMPARISON: [...] Spine without IV Contrast (09/21/2024 9:17 AM RETAIL LOSS PREVENTION INVESTIGATOR) Anatomical Region Laterality Modality Cervical Spine, Neuroradiolo gy RST LOS, Neuroradiology ARZ LOS, Neuroradiology FLA LOS N/A Computed Tomography 09/21/2024 9:16 AM RETAIL LOSS PREVENTION INVESTIGATOR Impressions 09/21/2024 9:23 AM RETAIL LOSS PREVENTION INVESTIGATOR Negative for acute fracture of cervical spine. Narrative 09/21/2024 9:23 AM RETAIL LOSS PREVENTION INVESTIGATOR EXAM: CT CERVICAL SPINE WITHOUT IV CONTRAST [...] of cervical spine. us Bertha Ferrera M.D. [facility] CT PROCEDURES Final R esult * DX Ankle Left 3+ Views (09/21/2024 9:07 AM RETAIL LOSS PREVENTION INVESTIGATOR) Anatomical Region Laterality Modality Lower Extremity, Ankle, Musc uloskeletal RST LOS, Musculoskeletal ARZ LOS, Muskuloskeletal FLA LOS Left Digit al Radiography Impressions 09/21/2024 9:10 AM RETAIL LOSS PREVENTION INVESTIGATOR Negative left ankle radiographs. Narrative 09/21/2024 9:10 AM RETAIL LOSS PREVENTION INVESTIGATOR EXAM: DX ANKLE LEFT 3+ VIEWS Procedure Note Florentin Figueroa M.D. - 09/21/2024 EXAM: DX ANKLE LEFT 3+ VIEWS IMPRESSION: Negative left ankle radiographs. us Bertha Ferrera M.D. [facility] [place] DIAGNOSTIC IMAGING [place] OCEDURES Final Result from Last 3 Months Advance Directives For more information, please contact: [phone] * Full Code (Latest Code Status on File) Date Activated Date Inactivated Comments 09/22/2024 2:11 PM 09/22/2024 5:22 PM Question Answer Comments Full Code: Not Discussed Due to: Patient not available * Full Code Date Activated Date Inactivated Comments 03/18/2018 9:39 PM 03/20/2018 4:05 PM Question Answer Comments Full Code: Not Discussed Due to: Patient not available Care Teams Rotary Helper Relationship Specialty Start Date End Date Tiana Ma M.D. [address] [place] [id number] PCP - General Family Medicine 09/22/24
--- OUTSIDE RECORDS SUMMARY | 2024-09-30 23:53 | XMS_ITS | Encounter Summary ---
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 38.3 - 48.6 % 09/21/2024 9:47 PM COIL WINDER REPAIR DHPM Erythrocytes 4.83 4.35 - 5.65 x10(12)/L 09/21/2024 9:47 PM COIL WINDER REPAIR DHPM MCV 89.6 78.2 - 97.9 fL 09/21/2024 9:47 PM COIL WINDER REPAIR DHPM RBC Distrib Width 11.9 11.8 - 14.5 % 09/21/2024 9:47 PM COIL WINDER REPAIR DHPM Platelet Count 280 135 - 317 x10(9)/L 09/21/2024 9:47 PM COIL WINDER REPAIR DHPM Leukocytes 13.0(H) 3.4 - 9.6 x10(9)/L 09/21/2024 9:47 PM COIL WINDER REPAIR DHPM Neutrophils 10.31(H) 1.56 - 6.45 x10(9)/L 09/21/2024 9:47 PM COIL WINDER REPAIR DHPM Lymphocytes 1.13 0.95 - 3.07 x10(9)/L 09/21/2024 9:47 PM COIL WINDER REPAIR DHPM Monocytes 1.54(H) 0.26 - 0.81 x10(9)/L 09/21/2024 9:47 PM COIL WINDER REPAIR DHPM Eosinophils <0.03 0.03 - 0.48 x10(9)/L 09/21/2024 9:47 PM COIL WINDER REPAIR DHPM Basophils <0.03 0.01 - 0.08 x10(9)/L 09/21/2024 9:47 PM COIL WINDER REPAIR DHPM Blood (Blood, Venous) 09/21/2024 8:44 PM COIL WINDER REPAIR 09/21/2024 9:29 PM COIL WINDER REPAIR us Travis Fermin P.A.-C. LAB BLOOD ADD-ON Final Res ult [facility] [address] [place] [address], [facility] [address] [place] [address] * (ABNORMAL) Basic Metabolic Panel (09/21/2024 8:44 PM COIL WINDER REPAIR) Potassium, S 4.2 3.6 - 5.2 mmol/L 09/21/2024 9:59 PM COIL WINDER REPAIR DTL Sodium, S 134(L) 135 - 145 mmol/L 09/21/2024 9:59 PM COIL WINDER REPAIR DTL Chloride, S 98 98 - 107 mmol/L 09/21/2024 9:59 PM COIL WINDER REPAIR DTL Bicarbonate, S 21(L) 22 - 29 mmol/L 09/21/2024 9:59 PM COIL WINDER REPAIR DTL Anion Gap 15 7 - 15 09/21/2024 9:59 PM COIL WINDER REPAIR DTL BUN (Blood Urea Nitrogen), S 13 8 - 24 mg/dL 09/21/2024 9:59 PM COIL WINDER REPAIR DTL Creatinine 0.85 0.74 - 1.35 mg/dL 09/21/2024 9:59 PM COIL WINDER REPAIR DTL Estimated GFR (eGFR) >90 >=60 mL/min/BSA 09/21/2024 9:59 PM COIL WINDER REPAIR DTL Comment: Estimated GFR calculated using the 2020 CKD_EPI creatinine equation. Calcium, Total, S 9.3 8.6 - 10.0 mg/dL 09/21/2024 9:59 PM COIL WINDER REPAIR DTL Glucose, S 120 70 - 140 mg/dL 09/21/2024 9:59 PM COIL WINDER REPAIR DTL Blood (Blood, Venous) 09/21/2024 8:44 PM COIL WINDER REPAIR 09/21/2024 9:44 PM COIL WINDER REPAIR us Travis Fermin P.A.-C. LAB BLOOD ADD-ON Final Res ult [facility] [address] [place] [address], [facility] [address] [place] [address] * DX Abdomen 1 View (09/21/2024 7:37 PM COIL WINDER REPAIR) Anatomical Region Laterality Modality Abdomen, Abdominal RST LOS, Abdominal ARZ LOS, Abdominal FLA LOS N/A Digital Radiography Impressions 09/21/2024 8:25 PM COIL WINDER REPAIR No pneumoperitoneum. Contrast in the urinary bladder. Narrative 09/21/2024 8:25 PM COIL WINDER REPAIR EXAM: DX ABDOMEN 1 VIEW Procedure Note Sim Puente M.D. - 09/21/2024 EXAM: DX ABDOMEN 1 VIEW IMPRESSION: No pneumoperitoneum. Contrast in the urinary bladder. Travis Fermin P.A.-C. [facility] DIAGNOSTIC IMAG[facility] PRO CEDURES Final Result * DX Chest AP or PA and Lateral 2 Views (09/21/2024 7:37 PM COIL WINDER REPAIR) Anatomical Region Laterality Modality Chest, Thoracic RST LOS, Tho racic ARZ LOS, Thoracic FLA LOS N/A Digital Radiography Impressions 09/21/2024 7:46 PM COIL WINDER REPAIR No significant change since 09/21/2024 at 1751. No visualized pneumoperitoneum. Stable small right apical pneumothorax and trace left apical pneumothorax with left pulmonary contusion. Unchanged left rib fractures. Narrative 09/21/2024 7:46 PM COIL WINDER REPAIR EXAM: DX CHEST AP OR PA AND LATERAL 2 VIEWS Procedure Note Sim Puente M.D. - 09/21/2024 EXAM: DX CHEST AP OR PA AND LATERAL 2 VIEWS IMPRESSION: No significant change since 09/21/2024 at 1751. No visualizedpneumoperitoneum. Stable small right apical pneumothorax and trace leftapical pneumothorax with left pulmonary contusion. Unchanged left ribfractures. Travis Fermin P.A.-C. [facility] DIAGNOSTIC IM[facility] PRO CEDURES Final Result * Troponin T, 2 Hour with 6 Hour Reflex, 5th Gen (09/21/2024 6:25 PM COIL WINDER REPAIR) Troponin T, 2 hr, 5th gen <6 <=15 ng/L 09/21/2024 6:49 PM COIL WINDER REPAIR ST[facility] 2H Delta -1 ng/L 09/21/2024 6:49 PM COIL WINDER REPAIR ST[facility] Comment:6 hour collection no t indicated. 2H Delta Interp Not Changing 09/21/2024 6:49 PM COIL WINDER REPAIR ST[facility] Blood 09/21/2024 6:25 PM COIL WINDER REPAIR 09/21/2024 6:29 PM COIL WINDER REPAIR Travis Fermin P.A.-C. LAB BLOOD TROPONIN Final R esult [facility] [place] [address] [place] [address], [facility] [address] [place] [address] * DX Chest Portable 1 View (09/21/2024 5:58 PM COIL WINDER REPAIR) Anatomical Region Laterality Modality Chest, Thoracic RST LOS, Tho racic ARZ LOS, Thoracic FLA LOS N/A Digital Radiography Impressions 09/21/2024 6:12 PM COIL WINDER REPAIR Since 09/21/2024 at 1637, slightly increased size of the small right apical pneumothorax, which may be due to positioning. Stable trace left apical pneumothorax. Left lung pulmonary contusions. Left rib fractures are better assessed on prior CT. Persistent lucency under the left hemidiaphragm which is favored secondary to bowel gas but recommend continued attention on follow-up. Narrative 09/21/2024 6:12 PM COIL WINDER REPAIR EXAM: DX CHEST PORTABLE 1 VIEW Procedure [...] Chest Portable 1 View (09/21/2024 4:43 PM COIL WINDER REPAIR) Anatomical Region Laterality Modality Chest, Thoracic RST LOS, Tho racic ARZ LOS, Thoracic FLA LOS N/A Digital Radiography Impressions 09/21/2024 4:50 PM COIL WINDER REPAIR Since earlier today, new lucency under the left hemidiaphragm suspicious for pneumoperitoneum. Remainder unchanged. Small right and trace left apical pneumothoraces. Left rib fractures, including a displaced fracture of the posterolateral left fourth rib. Comminuted, displaced left scapular fracture. Remainder negative. Findings discussed with Travis Fermin PA-C ([id number]) at 4:49 PM on 09/21/2024. Narrative 09/21/2024 4:50 PM COIL WINDER REPAIR EXAM: DX CHEST PORTABLE 1 VIEW Procedure Note Sheeba Jacob M.D. - 09/21/2024 EXAM: DX CHEST PORTABLE 1 VIEW IMPRESSION: Since earlier today, new lucency under the left hemidiaphragm suspiciousfor pneumoperitoneum. Remainder unchanged. Small right and trace leftapical pneumothoraces. Left rib fractures, including a displaced fractureof the posterolateral left fourth rib. Comminuted, displaced left scapular fracture. Remaindernegative. Findings discussed with Travis Fermin PA-C ([id number]) at 4:49 PM on09/21/2024. Travis Fermin P.A.-C. IMG DIAGNOSTIC IMAGING PRO CEDURES Final Result * Lactate (09/21/2024 4:27 PM COIL WINDER REPAIR) [facility] Lactate, P 2.2 0.5 - 2.2 mmol/L 09/21/2024 4:50 PM COIL WINDER REPAIR [facility] Blood (Blood, Venous) 09/21/2024 4:27 PM COIL WINDER REPAIR 09/21/2024 4:37 PM COIL WINDER REPAIR Travis Fermin P.A.-C. LAB BLOOD NON ADD-ON Final Result [facility] [place] [address] [place] [address], [facility] [address] [place] [address] * Magnesium (09/21/2024 4:27 PM COIL WINDER REPAIR) [facility] Magnesium, P 2.1 1.7 - 2.3 mg/dL 09/21/2024 4:56 PM COIL WINDER REPAIR ST[facility] Blood (Blood, Venous) 09/21/2024 4:27 PM COIL WINDER REPAIR 09/21/2024 4:37 PM COIL WINDER REPAIR Travis Fermin P.A.-C. LAB BLOOD ADD-ON Final Res ult [facility] [place] [address] [place] [address], [facility] STMA [facility] [address] [place] [address] * Basic Metabolic Panel (09/21/2024 4:27 PM COIL WINDER REPAIR) Potassium, P 4.4 3.6 - 5.2 mmol/L 09/21/2024 4:56 PM COIL WINDER REPAIR ST[facility] Sodium, P 137 135 - 145 mmol/L 09/21/2024 4:56 PM COIL WINDER REPAIR [facility] Chloride, P 100 98 - 107 mmol/L 09/21/2024 4:56 PM COIL WINDER REPAIR [facility] Bicarbonate, P 26 22 - 29 mmol/L 09/21/2024 4:56 PM COIL WINDER REPAIR [facility] Anion Gap, P 11 7 - 15 09/21/2024 4:56 PM COIL WINDER REPAIR [facility] BUN (Blood Urea Nitrogen), P 14 8 - 24 mg/dL 09/21/2024 4:56 PM COIL WINDER REPAIR ST[facility] Creatinine 0.86 0.74 - 1.35 mg/dL 09/21/2024 4:56 PM COIL WINDER REPAIR ST[facility] Estimated GFR (eGFR) >90 >=60 mL/min/BSA 09/21/2024 4:56 PM COIL WINDER REPAIR ST[facility] Comment: Estimated GFR calculated using the 2020 CKD_EPI creatinine equation. Calcium, Total, P 9.2 8.6 - 10.0 mg/dL 09/21/2024 4:56 PM COIL WINDER REPAIR ST[facility] Glucose, P 132 70 - 140 mg/dL 09/21/2024 4:56 PM COIL WINDER REPAIR [facility] Blood (Blood, Venous) 09/21/2024 4:27 PM COIL WINDER REPAIR 09/21/2024 4:37 PM COIL WINDER REPAIR Travis Fermin P.A.-C. LAB BLOOD ADD-ON Final Res ult Performing Organization Address City/[facility]/ZIP Co de Phone Number [facility] [place] [address] [place], [place] [id number] [place] [address] [address] [place] [address] * (ABNORMAL) CBC without Differential (09/21/2024 4:27 PM COIL WINDER REPAIR) Pathologist [facility] Hemoglobin 15.2 13.2 - 16.6 g/dL 09/21/2024 4:46 PM COIL WINDER REPAIR STMA Hematocrit 44.5 38.3 - 48.6 % 09/21/2024 4:46 PM COIL WINDER REPAIR ST[facility] Erythrocytes 4.86 4.35 - 5.65 x10(12)/L 09/21/2024 4:46 PM COIL WINDER REPAIR [facility] MCV 91.6 78.2 - 97.9 fL 09/21/2024 4:46 PM COIL WINDER REPAIR [facility] RBC Distrib Width 11.9 11.8 - 14.5 % 09/21/2024 4:46 PM COIL WINDER REPAIR [facility] Platelet Count 277 135 - 317 x10(9)/L 09/21/2024 4:46 PM COIL WINDER REPAIR [facility] Leukocytes 13.9(H) 3.4 - 9.6 x10(9)/L 09/21/2024 4:46 PM COIL WINDER REPAIR [facility] Blood (Blood, Venous) 09/21/2024 4:27 PM COIL WINDER REPAIR 09/21/2024 4:37 PM COIL WINDER REPAIR Travis Fermin P.A.-C. LAB BLOOD ADD-ON Final Res ult [facility] [place] [address] [place], [place] [id number] [place] [address] [address] [place] [address] * Troponin T, Baseline with 2 Hour/6 Hour Reflex Biomarker Panel (09/21/2024 4:27 PM COIL WINDER REPAIR) Pathologist [facility] Troponin T, Baseline, 5th gen 6 <=15 ng/L 09/21/2024 4:57 PM COIL WINDER REPAIR [facility] Blood (Blood, Venous) 09/21/2024 4:27 PM COIL WINDER REPAIR 09/21/2024 4:37 PM COIL WINDER REPAIR Travis Fermin P.A.-C. LAB BLOOD TROPONIN Final R esult Performing Organization Address [facility] Co de Phone Number [facility] [address] [place] [address], [facility] [address] [place] [address] * ECG 12 Lead (09/21/2024 4:18 PM COIL WINDER REPAIR) Ventricular Rate ECG/Min 70 BPM MUSE RI Interval 172 ms MUSE QRSD Interval 80 ms MUSE QT Interval 364 ms MUSE QTC Interval 393 ms MUSE P Simms 58 degrees MUSE R Simms 70 degrees MUSE T Wave Simms 65 degrees MUSE 09/21/2024 4:18 PM COIL WINDER REPAIR 09/22/2024 7:21 AM COIL WINDER REPAIR Impressions MUSE - 09/21/2024 4:24 PM COIL WINDER REPAIR Normal sinus rhythm with sinus arrhythmia ST [...] Res ult - Final Performing Organization Address City/[facility]/ZIP Co de Phone Number MUSE NA * ECG 12 Lead (09/21/2024 1:28 PM COIL WINDER REPAIR) Ventricular Rate ECG/Min 85 BPM MUSE RI Interval 164 ms MUSE QRSD Interval 76 ms MUSE QT Interval 346 ms MUSE QTC Interval 411 ms MUSE P Simms 64 degrees MUSE R Simms 46 degrees MUSE T Wave Simms 46 degrees MUSE 09/21/2024 1:28 PM COIL WINDER REPAIR 09/21/2024 3:47 PM COIL WINDER REPAIR Impressions MUSE - 09/21/2024 1:53 PM COIL WINDER REPAIR Normal sinus rhythm ST elevation, consider early [...] Spine without IV Contrast (09/21/2024 1:05 PM COIL WINDER REPAIR) Anatomical Region Laterality Modality Lumbar Spine, Neuroradiology RST LOS, Neuroradiology ARZ LOS, Neuroradiology FLA LOS N/A Computed Tomography, Compute d Tomography Impressions 09/21/2024 1:14 PM COIL WINDER REPAIR Acute left upper rib fractures, bilateral pneumothoraces left pulmonary contusion as demonstrated on CT chest earlier today. Thoracic and lumbar spine otherwise negative. Narrative 09/21/2024 1:14 PM COIL WINDER REPAIR EXAM: CT THORACIC SPINE WITHOUT IV CONTRAST, [...] Spine without IV Contrast (09/21/2024 1:05 PM COIL WINDER REPAIR) Anatomical Region Laterality Modality Thoracic Spine, Neuroradiolo gy RST LOS, Neuroradiology ARZ LOS, Neuroradiology FLA LOS N/A Computed Tomography, Compute d Tomography Impressions 09/21/2024 1:14 PM COIL WINDER REPAIR Acute left upper rib fractures, bilateral pneumothoraces left pulmonary contusion as demonstrated on CT chest earlier today. Thoracic and lumbar spine otherwise negative. Narrative 09/21/2024 1:14 PM COIL WINDER REPAIR EXAM: CT THORACIC SPINE WITHOUT IV CONTRAST, [...] Maxillofacial without IV Contrast (09/21/2024 1:05 PM COIL WINDER REPAIR) Anatomical Region Laterality Modality Jaw, Head, Neuroradiology RS T LOS, Neuroradiology ARZ LOS, Neuroradiology FLA LOS N/A Computed Tomography, Compute d Tomography Impressions 09/21/2024 1:21 PM COIL WINDER REPAIR No acute facial fracture. Narrative 09/21/2024 1:21 PM COIL WINDER REPAIR EXAM: CT MAXILLOFACIAL WITHOUT IV CONTRAST COMPARISON: [...] Angiogram with IV Contrast (09/21/2024 1:05 PM COIL WINDER REPAIR) Anatomical Region Laterality Modality Neck, Neuroradiology RST LOS , Neuroradiology ARZ LOS, Neuroradiology FLA LOS N/A Computed Tomography, Compute d Tomography 09/21/2024 12:5 9 PM COIL WINDER REPAIR Impressions 09/21/2024 1:20 PM COIL WINDER REPAIR 1. Carotid and vertebral arteries in the neck are patent and negative for acute traumatic injury. 2. 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 Narrative 09/21/2024 1:20 PM COIL WINDER REPAIR EXAM: CT NECK ANGIOGRAM WITH IV CONTRAST [...] saccular outpouching arising from the proximal left [id number], favored to represent a small aneurysm. us Shereen PaezB.S. IMG CT PROCEDURES Final Res ult * (ABNORMAL) Lactate, POCT (09/21/2024 12:34 PM COIL WINDER REPAIR) [facility] Lactate, POCT 2.62(H) 0.50 - 2.20 mmol/L 09/21/2024 12:46 PM COIL WINDER REPAIR PCLX Blood (Blood, Venous) 09/21/2024 12:34 PM COIL WINDER REPAIR 09/21/2024 12:34 PM COIL WINDER REPAIR us Shereen PaezB.S. LAB POCT ORDERABLES - DEVIC E Final Result POC [facility] [address] [place] [address], [facility] PCLX [facility] POC [address] [place] [address] * (ABNORMAL) Venous Blood Gas and Electrolytes CG8+, POCT (09/21/2024 12:33 PM COIL WINDER REPAIR) [facility] Sample Site, POCT Venstick 09/21/2024 12:46 PM COIL WINDER REPAIR PCLX Comment: ----ADDITIONAL INFORMATION---- Performed at the Point of Care pH, Venous, POCT, B 7.33 7.32 - 7.43 09/21/2024 12:46 PM COIL WINDER REPAIR PCSM Comment: ----ADDITIONAL INFORMATION---- Performed at the Point of Care pCO2, Venous, POCT, B 41 41 - 51 mm Hg 09/21/2024 12:46 PM COIL WINDER REPAIR PCSM Comment: ----ADDITIONAL INFORMATION---- Performed at the Point of Care pO2, Venous, POCT, B 63 Not Applicable mm Hg 09/21/2024 12:46 PM COIL WINDER REPAIR PCSM Comment: ----ADDITIONAL INFORMATION---- Performed at the Point of Care Base Excess, Venous, POCT, B -4 Not Applicable mmol/L 09/21/2024 12:46 PM COIL WINDER REPAIR PCSM Comment: ----ADDITIONAL INFORMATION---- Performed at the Point of Care HCO3, Venous, POCT, B 22 Not Applicable mmol/L 09/21/2024 12:46 PM COIL WINDER REPAIR PCSM Comment: ----ADDITIONAL INFORMATION---- Performed at the Point of Care Sodium, POCT, B 139 135 - 145 mmol/L 09/21/2024 12:46 PM COIL WINDER REPAIR PCLX Comment: ----ADDITIONAL INFORMATION---- Performed at the Point of Care Potassium, POCT, B 4.0 3.6 - 5.2 mmol/L 09/21/2024 12:46 PM COIL WINDER REPAIR PCLX Comment: ----ADDITIONAL INFORMATION---- Performed at the Point of Care Calcium, Ionized, POCT, B 5.10 4.65 - 5.30 mg/dL 09/21/2024 12:46 PM COIL WINDER REPAIR PCLX Comment: ----ADDITIONAL INFORMATION---- Performed at the Point of Care Glucose, POCT, B 172(H) 70 - 140 mg/dL 09/21/2024 12:46 PM COIL WINDER REPAIR PCLX Comment: ----ADDITIONAL INFORMATION---- Performed at the Point of Care Hematocrit, POCT, B 46.0 38.3 - 48.6 % 09/21/2024 12:46 PM COIL WINDER REPAIR PCLX Comment: ----ADDITIONAL INFORMATION---- Performed at the Point of Care Blood (Blood, Venous) 09/21/2024 12:33 PM COIL WINDER REPAIR 09/21/2024 12:33 PM COIL WINDER REPAIR us Shereen Dubon LAB POCT ORDERABLES - DEVIC E Final Result POC [facility] [address] [place] [address], [facility] PCLX [facility] POC [address] [place] [address] PCSM [facility] POC [address] [place] [address] * (ABNORMAL) Thromboelastograph, Kaolin, Blood (09/21/2024 12:32 PM COIL WINDER REPAIR) R, Kaolin, TEG 3.0(L) 4.0 - 9.0 min 09/21/2024 2:05 PM COIL WINDER REPAIR ST[facility] K, Kaolin, TEG 1.4 1.0 - 1.8 min 09/21/2024 2:05 PM COIL WINDER REPAIR ST[facility] Angle, Kaolin, TEG 68.2 64.0 - 78.1 degrees 09/21/2024 2:05 PM COIL WINDER REPAIR ST[facility] MA, Kaolin, TEG 63.8 57.1 - 72.6 mm 09/21/2024 2:05 PM COIL WINDER REPAIR STMA Ly30, Kaolin, TEG 1.4 0.0 - 4.8 % 09/21/2024 2:05 PM COIL WINDER REPAIR ST[facility] Blood (Blood, Venous) 09/21/2024 12:32 PM COIL WINDER REPAIR 09/21/2024 12:32 PM COIL WINDER REPAIR us Shereen PaezB.S. LAB BLOOD NON ADD-ON Final Result [facility] [place] [address] [place] [address], [facility] [address] [place] [address] * Type and Screen (with Reflex Antibody ID) (09/21/2024 12:32 PM COIL WINDER REPAIR) [facility] ABORh B Pos Not applicable 09/21/2024 1:19 PM COIL WINDER REPAIR STRM Antibody Screen Negative Negative 09/21/2024 1:32 PM COIL WINDER REPAIR STRM Type & Screen Expiration 09/24/2024 23:59 09/21/2024 1:19 PM COIL WINDER REPAIR STRM Testing Location Dianna DEFAULT 09/21/2024 12:49 PM COIL WINDER REPAIR STRM Blood (Blood, Venous) 09/21/2024 12:32 PM COIL WINDER REPAIR 09/21/2024 12:49 PM COIL WINDER REPAIR us Shereen PaezB.S. LAB BLOOD BANK TEST ORDERAB LES Final Result Performing Organization Address [facility] Co de Phone Number [facility] [place] [address] [place] [address], [facility] [address] [place] [address] * (ABNORMAL) Prothrombin Time (PT) (09/21/2024 12:32 PM COIL WINDER REPAIR) Pathologist [facility] Prothrombin Time, P 12.9(H) 9.4 - 12.5 sec 09/21/2024 12:48 PM COIL WINDER REPAIR ST[facility] INR 1.2 0.9 - 1.1 09/21/2024 12:48 PM COIL WINDER REPAIR STMA Comment: ----ADDITIONAL INFORMATION---- Standard intensity warfarin therapeutic range: 2.0 to 3.0 High intensity warfarin therapeutic range: 2.5 to 3.5 Blood (Blood, Venous) 09/21/2024 12:32 PM COIL WINDER REPAIR 09/21/2024 12:42 PM COIL WINDER REPAIR Shereen Dubon LAB BLOOD ADD-ON Final Resu lt Performing Organization Address [facility] Co de Phone Number [facility] [place] [address] [place] [address], [facility] [address] [place] [address] * (ABNORMAL) CBC with Differential, Blood (09/21/2024 12:32 PM COIL WINDER REPAIR) [facility] Hemoglobin 15.7 13.2 - 16.6 g/dL 09/21/2024 12:45 PM COIL WINDER REPAIR STMA Hematocrit 45.6 38.3 - 48.6 % 09/21/2024 12:45 PM COIL WINDER REPAIR ST[facility] Erythrocytes 5.04 4.35 - 5.65 x10(12)/L 09/21/2024 12:45 PM COIL WINDER REPAIR ST[facility] MCV 90.5 78.2 - 97.9 fL 09/21/2024 12:45 PM COIL WINDER REPAIR ST[facility] RBC Distrib Width 11.7(L) 11.8 - 14.5 % 09/21/2024 12:45 PM COIL WINDER REPAIR STMA Platelet Count 277 135 - 317 x10(9)/L 09/21/2024 12:45 PM COIL WINDER REPAIR ST[facility] Leukocytes 18.6(H) 3.4 - 9.6 x10(9)/L 09/21/2024 12:45 PM COIL WINDER REPAIR ST[facility] Neutrophils 16.90(H) 1.56 - 6.45 x10(9)/L 09/21/2024 12:44 PM COIL WINDER REPAIR DHPM Lymphocytes 0.42(L) 0.95 - 3.07 x10(9)/L 09/21/2024 12:45 PM COIL WINDER REPAIR ST[facility] Monocytes 1.29(H) 0.26 - 0.81 x10(9)/L 09/21/2024 12:45 PM COIL WINDER REPAIR ST[facility] Eosinophils <0.03 0.03 - 0.48 x10(9)/L 09/21/2024 12:45 PM COIL WINDER REPAIR [facility] Basophils 0.03 0.01 - 0.08 x10(9)/L 09/21/2024 12:45 PM COIL WINDER REPAIR [facility] Blood (Blood, Venous) 09/21/2024 12:32 PM COIL WINDER REPAIR 09/21/2024 12:42 PM COIL WINDER REPAIR us Shereen ZieglerB.B.S. LAB BLOOD ADD-ON Final Resu lt [facility] [place] [address] [place] [address], [facility] STMA [facility] [address] [place] [address] DHPM [facility] [address] [place] [address] * Lipase (09/21/2024 12:32 PM COIL WINDER REPAIR) Lipase, S 30 13 - 60 U/L 09/21/2024 1: 19 PM COIL WINDER REPAIR DTL Blood (Blood, Venous) 09/21/2024 12:32 PM COIL WINDER REPAIR 09/21/2024 12:58 PM COIL WINDER REPAIR us Shereen ZieglerB.B.S. LAB BLOOD ADD-ON Final Resu lt [facility] [place] [address] [place] [address], [facility] [address] [place] [address] * Ethanol Level, Serum (09/21/2024 12:32 PM COIL WINDER REPAIR) Pathologist [facility] Ethanol, S <10 <10 mg/dL 09/21/2024 1:1 9 PM COIL WINDER REPAIR DT Blood (Blood, Venous) 09/21/2024 12:32 PM COIL WINDER REPAIR 09/21/2024 12:58 PM COIL WINDER REPAIR Shereen Dubon LAB BLOOD NON ADD-ON Final Result [facility] [place] [address] [place] [address] * (ABNORMAL) Basic Metabolic Panel (09/21/2024 12:32 PM COIL WINDER REPAIR) [facility] Potassium, P 4.2 3.6 - 5.2 mmol/L 09/21/2024 12:58 PM COIL WINDER REPAIR [facility] Sodium, P 138 135 - 145 mmol/L 09/21/2024 12:58 PM [facility] WINDER REPAIR [facility] Chloride, P 103 98 - 107 mmol/L 09/21/2024 12:58 PM [facility] WINDER REPAIR [facility] Bicarbonate, P 21(L) 22 - 29 mmol/L 09/21/2024 12:58 PM [facility] WINDER REPAIR [facility] Anion Gap, P 14 7 - 15 09/21/2024 12:58 PM [facility] WINDER REPAIR [facility] BUN (Blood Urea Nitrogen), P 16 8 - 24 mg/dL 09/21/2024 12:58 PM [facility] WINDER REPAIR [facility] Creatinine 0.77 0.74 - 1.35 mg/dL 09/21/2024 12:58 PM [facility] WINDER REPAIR [facility] Estimated GFR (eGFR) >90 >=60 mL/min/BSA 09/21/2024 12:58 PM COIL WINDER REPAIR [facility] Comment: Estimated GFR calculated using the 2020 CKD_EPI creatinine equation. Calcium, Total, P 9.1 8.6 - 10.0 mg/dL 09/21/2024 12:58 PM COIL WINDER REPAIR [facility] Glucose, P 173(H) 70 - 140 mg/dL 09/21/2024 12:58 PM COIL WINDER REPAIR [facility] Blood (Blood, Venous) 09/21/2024 12:32 PM COIL WINDER REPAIR 09/21/2024 12:42 PM COIL WINDER REPAIR Shereen PaezB.S. LAB BLOOD ADD-ON Final Resu lt [facility] [place] [address] [place] [address], [facility] [address] [place] [address] * DX Chest Portable 1 View (09/21/2024 12:29 PM COIL WINDER REPAIR) Anatomical Region Laterality Modality Chest, Thoracic RST LOS, Tho racic ARZ LOS, Thoracic FLA LOS N/A Digital Radiography Impressions 09/21/2024 12:33 PM COIL WINDER REPAIR Left rib fractures better evaluated on CT. Bilateral small pneumothoraces. Unremarkable cardiac siloutthe. Narrative 09/21/2024 12:33 PM COIL WINDER REPAIR EXAM: DX CHEST PORTABLE 1 VIEW Procedure [...] Thu09/21/24 at 1800 Given 09/22/2024 11:26 AM COIL WINDER REPAIR 1,000 mg Given 09/22/2024 6:20 AM COIL WINDER REPAIR 1,000 mg Given 09/21/2024 10:55 PM COIL WINDER REPAIR 1,000 mg bisacodyL suppository 10 mg (Dulcolax) 10 mg, rectal, Daily PRN, constipation, Starting on Thu09/21/24 at 1701, Ordered sequence of administration: polyethylene glycol, then bisacodyl until BM achieved. enoxaparin injection 30 mg (Lovenox) 30 mg, subcutaneous, 2 times daily, First dose on Yumi 09/22/24 at 0900 Given 09/22/2024 8:06 AM COIL WINDER REPAIR 30 mg Right Outer Thigh fentaNYL injection 25 mcg (Sublimaze) 25 mcg, intravenous, Every 1 hour PRN, moderate pain or score 4-6 of 10, severe pain or score 7-10 of 10, Starting on Thu09/21/24 at 1225 Given 09/21/2024 2:04 PM COIL WINDER REPAIR 25 mcg HYDROmorphone (PF) injection 0.2 mg [...] Radiant Medication Guidelines Given 09/21/2024 12:52 PM COIL WINDER REPAIR 100 mL ketorolac injection 15 mg (ToradoL) 15 mg, intravenous, Every 8 hours, First dose (after last modification) on Thu09/21/24 at 1500, For 4 days, Adult IV push rate: Over 15 seconds. Peds IV push rate: Over 1 minute. Doses > 15 mg IV/IM are discouraged due to lack of additional analgesic benefit. Given 09/22/2024 6:20 AM COIL WINDER REPAIR 15 mg Given 09/21/2024 10:55 PM COIL WINDER REPAIR 15 mg Given 09/21/2024 3:12 PM COIL WINDER REPAIR 15 mg lidocaine 5 % 1 patch (Lidoderm) 1 patch, transdermal, Administer over 12 Hours, Every 24 hours, First dose on Thu09/21/24 at 1800, (12 hours on-12 hours off) To intact skin Medication Applied 09/21/2024 6:16 PM COIL WINDER REPAIR 1 patch Upper Back LORazepam tablet 1 mg (Ativan) 1 mg, oral, Bedtime PRN, anxiety, Starting on Thu09/21/24 at 2210 Given 09/21/2024 10:55 PM COIL WINDER REPAIR 1 mg naloxone injection 0.2 mg (Narcan) [...] other oral analgesics. Given 09/22/2024 12:14 PM COIL WINDER REPAIR 10 mg Given 09/21/2024 10:55 PM COIL WINDER REPAIR 10 mg Given 09/21/2024 6:05 PM COIL WINDER REPAIR 10 mg oxyCODONE IR tablet 5 mg (Roxicodone) 5 mg, oral, Every 4 hours PRN, moderate pain or score 4-6 of 10, for breakthrough pain, Starting on Thu09/21/24 at 1701, Pain unrelieved by other oral analgesics. Given 09/22/2024 8:07 AM COIL WINDER REPAIR 5 mg polyethylene glycol powder packet 1 [...] Radiant Medication Guidelines Given 09/21/2024 12:52 PM COIL WINDER REPAIR 35 m L sodium chloride 0.9 % [...] to maintain patency Given 09/21/2024 8:16 PM COIL WINDER REPAIR 3 mL documented in this encounter Active and Recently Administered Medications Times are shown in COIL WINDER REPAIR. Scheduled Medication Order 09/20/2024 09/21/2024 09/22/2024 acetaminophen [...] analgesics. documented in this encounter Care Teams Furniture Mechanic Relationship Specialty Start Date End Date Tiana Ma M.D. [address] [place] [phone] PCP - General Family Medicine 09/22/24 documented as of this encounter
--- OUTSIDE RECORDS SUMMARY | 2024-09-30 23:53 | XMS_ITS | Encounter Summary ---
Author Organization [facility] Address [address] [place] [address] Care Team Providers Care Director Digital Communications Name Role Phone Tiana Ma M.D. Primary Care Provider [phone] Reason for Referral * Outpatient (Routine) - Authorized Specialty Diagnoses / Procedures Referred By Contac t Referred To Contact Diagnoses Fracture Scapula Body Nondisplaced Closed Initial Left Procedures DX Scapula Left 2 Views Ce Braxton P.A.-C., M.S. [address] [place] [address] Phone: tel: fax: [facility] Referral ID Status Reason Start Date Expiration Date V isits Requested Visits Authorized [id number] Authorized 09/22/2024 09/22/2025 1 1 RVISOR ORDER TAKERS * Outpatient (Routine) - Authorized Specialty Diagnoses / Procedures Referred By Contac t Referred To Contact Orthopedic Surgery Diagnoses . Ce Braxton P.A.-C., M.S. [address] [place] [address] Phone: tel: fax: [facility] Referral ID Status Reason Start Date Expiration Date V isits Requested Visits Authorized [id number] Authorized 09/22/2024 03/24/2026 1 1 Scheduling Instructions Ce 11:00 RVISOR ORDER TAKERS Encounter Details Date Type Department Care Team (Late st Contact Info) Description 09/22/2024 Orders Only Department of Orthopedic Surgery in [place], [place] [address] [place] [phone] Ce Braxton P.A.-C., M.S. [address] [place] [address] Fracture Scapula Body Nondisplaced Closed Initial Left (Primary Dx) Social History Tobacco Use Types Packs/Day Years Used Date Smoking Tobacco: Some Days Cigarettes Smokeless Tobacco: Never Comments:socially Alcohol Use Standard Drinks/Week Comments No 0 (1 standard drink = 0.6 oz pur e alcohol) [facility] Utilities Answer Date Recorded In the past 12 months has [employer], gas, oil, or water [employer] threatened to shut off services in your [...] your living situation today? I [facility] a [facility] to live 09/21/2024 Sex and Gender Information Value Date Recorded Sex Assigned at Not on file Legal Sex Male 7:15 PM SUPERVISOR ORDER TAKERS Gender Identity Not on file Sexual Orientation Not on file documented as of this encounter Plan of Treatment Upcoming Encounters Date Type Department Care Team (Late st Contact Info) Description 10/06/2024 10:30 AM SUPERVISOR ORDER TAKERS Office Visit Department of Family Medicine, [facility], in [place], [place] [address] [place] [phone] Rhett Montes De Oca M.D. [address] [place] [phone] 10/07/2024 7:15 AM SUPERVISOR ORDER TAKERS Appointment Department of Radiology, [facility] in [place], [place] [address] [place] [phone] Theresa Pandya, P.A.-CNeri [address] [place] [phone] 10/07/2024 8:00 AM SUPERVISOR ORDER TAKERS Office Visit Division of Trauma Critical Care and General Surgery in [place] [id number] [place] [phone] Theresa Pandya, P.A.-CNeri [address] [place] [phone] 10/13/2024 10:00 AM SUPERVISOR ORDER TAKERS Appointment Department of Radiology, [facility], in [place], [place] [address] [place] [phone] Ce Braxton P.A.-C., M.S. [address] [place] [phone] Discharge Disposition: Home or Self Care 10/13/2024 11:00 AM SUPERVISOR ORDER TAKERS Office Visit Department of Orthopedic Surgery in [place] [id number] [place] [phone] Ce Braxton P.A.-C., M.S. [address] [place] [phone] Scheduled Orders Name Type Priority Associated Diagnoses [...] Primary documented in this encounter Care Teams Director Digital Communications Relationship Specialty Start Date End Date Tiana Ma M.D. [address] [place] [phone] PCP - General Family Medicine 09/22/24 documented as of this encounter
--- OUTSIDE RECORDS SUMMARY | 2024-09-30 23:53 | XMS_ITS | Encounter Summary ---
Author Organization [facility] Address [address] [place] [address] Care Team Providers Care Bag Machine Set Up Operator Name Role Phone Tiana Ma M.D. Primary Care Provider Encounter Details Date Type Department Care Team (Late st Contact Info) Description 09/22/2024 Orders Only Division of Trauma Critical Care and General Surgery in [place], [place] [address] [place] [phone] Florentin Anderson, PNeriA.-C. [address] [place] [address] Social History Tobacco Use Types Packs/Day Years Used Date Smoking Tobacco: Some Days Cigarettes Smokeless Tobacco: Never Comments:socially Alcohol Use Standard Drinks/Week Comments No 0 (1 standard drink = 0.6 oz pur e alcohol) [facility] Utilities Answer Date Recorded In the [...] your living situation today? I have a [facility] place to live 09/21/2024 Sex and Gender Information Value Date Recorded Sex Assigned at Not on file Legal Sex Male 7:15 PM BUILDING CODE ADMINISTRATOR Gender Identity Not on file Sexual Orientation Not on file documented as of this encounter Plan of Treatment Upcoming Encounters Date Type Department Care Team (Late st Contact Info) Description 10/06/2024 10:30 AM BUILDING CODE ADMINISTRATOR Office Visit Department of Family Medicine, [facility], in [place], [place] [address] [place] [phone] Rhett Montes De Oca M.D. [address] [place] [phone] 10/07/2024 7:15 AM BUILDING CODE ADMINISTRATOR Appointment Department of Radiology, [facility], in [place], [place] [address] [place] [address] Theresa Padnya P.A.-C. [address] [place] [phone] 10/07/2024 8:00 AM BUILDING CODE ADMINISTRATOR Office Visit Division of Trauma Critical Care and General Surgery in [address] [phone] Theresa Pandya P.A.-C. [address] [place] [phone] 10/13/2024 10:00 AM BUILDING CODE ADMINISTRATOR Appointment Department of Radiology, [facility] in [address] [phone] Ce Braxton P.A.-C., M.S. [address] [place] [phone] Discharge Disposition: Home or Self Care 10/13/2024 11:00 AM BUILDING CODE ADMINISTRATOR Office Visit Department of Orthopedic Surgery in [address] [phone] Ce Braxton P.A.-C., M.S. [address] [place] [phone] documented as of this encounter Visit Diagnoses Not on filedocumented in this encounter Care Teams Bag Machine Set Up Operator Relationship Specialty Start Date End Date Tiana Ma M.D. [address] [place] [phone] PCP - General Family Medicine 09/22/24 documented as of this encounter
--- OUTSIDE RECORDS SUMMARY | 2024-09-30 23:53 | XMS_ITS ---
Author Organization [facility] Address [address] [place] [address] Care Team Providers Care Filling And Packing Supervisor Name Role Phone Unavailable Unavailable Unavailable Surgery Details Not on file Complications Check Surgery Details section. Procedure Estimated Blood Loss Check Surgery Details section. Procedure Findings Check Surgery Details section. Procedure Specimens Taken Check Surgery Details section.
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
== END 2024-09-24 11:51 | disposition home or self-care (01) ==
LOC: AMB 09-30 23:49
PROVIDERS: Visit Provider Internal Medicine
DX: J93.9 Pneumothorax, unspecified (principal); R04.2 Hemoptysis
CPT/HCPCS: A0425; A0427